=== PATIENT | female | born 1935 | race Caucasian/White ===

== ENCOUNTER 2016-10-31 13:19 | Emergency (ER) | payer OTHER, MEDICARE ==
[~2016-10-31] VITALS: Ht 162.6 cm; Wt 103.4 kg
[~2016-10-31 13:19] MED LIST: ACETAZOLAMIDE250 M1 PO; ALBUTEROL2.5 MG/3 M INH; AMARYL2 M1 PO; ATORVASTATIN CA20 MG PO; AZITHROMYCIN250 M1 PO; BETAPACE 80MG T80 MG PO; BETAPACE80 MG PO; BUMETANIDE1 M1 PO; CARDIZEM60 M1 PO; CARTIA XT120 MG PO; CATAPRES 0.1MG0.1 MG PO; CEPHALEXIN500 MG PO; CLONIDINE HYDR0.3 MG PO; DIGOX0.25 MG PO; DILTIAZEM ER120 M2 PO; DIOVAN80 M1 PO; ELIQUIS5 M1 PO; FERROUS SULFAT325 M3 PO; FUROSEMIDE20 MG PO; FUROSEMIDE40 MG PO; FUROSEMIDE80 M1 PO; FUROSEMIDE80 MG PO; GABAPENTIN100 M2 PO; HUMALOG KW100 UNIT/1 SC; K-DUR 20MEQ TA20 MEQ PO; LANTUS SOL100 UNIT/1 SC; LANTUS SOLOS100 U/ML; LANTUS SOLOS100 U/ML SC; LASIX40 M1 PO; LASIX40 MG PO; LASIX80 M1 PO; LASIX80 MG PO; LEVEMIR 10100 UNITS/ SC; LISINOPRIL40 MG PO; LOPRESSOR 25MG25 MG PO; LOPRESSOR50 MG PO; LOSARTAN POTASS25 M1 PO; LOSARTAN POTASS50 M1 PO; MEDROL DOSEPAK1 PAC PO; METOPROLOL TART25 M1 PO; MULTAQ 400MG400 MG PO; NAPROSYN375 MG PO; NITRO-DUR0.4 MG/HR TD; NOVOLOG FLEX100 U/ML SC; NOVOLOG SC; NYSTOP100000 U/G TP; PRADAXA150 MG PO; PRADAXA75 MG PO; PREDNISONE10 M2 PO; PROVENTIL HFA6.7 GM INH; SOTALOL80 M1 PO; SPIRONOLACTONE25 MG PO; THEOPHYLLINE A200 MG PO; THEOPHYLLINE A300 MG PO; TOUJEO SOL300 UNIT/1 SC; TOUJEO300 U/ML SC; VALSARTAN80 M1 PO
--- NOTE | 2016-10-31 13:25 | ED GENERAL ADULT ---
History of Present Illness General Chief Complaint: Dyspnea (COPD, CHF, Other) Stated Complaint: SOB TO MEET DR TRAMMELL Source: patient, family Exam Limitations: no limitations Vital Signs & Intake/Output Vital Signs & Intake/Output Vital Signs Date Time Temp Pulse Resp B/P Pulse O2 O2 Flow FiO2 Ox Delivery Rate 10/31 1905 98 18 94 Nasal 3.0L Cannula 10/31 1545 75 20 169/80 92 Nasal 3.0L Cannula 10/31 1323 98.2 94 20 129/58 92 Nasal 2.5L Cannula ED Intake and Output 11/01 0000 10/31 1200 Intake Total Output Total 500 Balance -500 Output, Urine 500 Patient 228 lb Weight Allergies Coded Allergies: Calcium Channel Blocking Agents-Dih (Intermediate, RASH 01/24/16) Penicillins (Mild, RASH 01/24/16) TOLERATES CEPHALOSPORINS latex (LATEX TAPE - RASH 01/24/16) Reconcile Medications Albuterol Sulfate 2.5 MG/3 ML VIAL.NEB 3 ML INH BID PRN breathing Albuterol Sulfate (Proventil Hfa) 6.7 GM HFA.AER.AD 2 PUF INH Q4P BREATHING USE THIS IF YOU CANNOT GET THE NEBULIZER MACHINE Apixaban (Eliquis) 5 MG TABLET 1 TAB PO BID BLOOD THINNER (Reported) Bumetanide 1 MG TABLET 2 MG PO DAILY CHF Diltiazem Cd (Diltiazem ER) 120 MG CAP.ER.DEG 120 MG PO DAILY AFIB Ferrous Sulfate 325 MG TABLET 1 TAB PO BID SUPPLEMENT (Reported) Glimepiride (Amaryl 2 MG) 2 MG TAB 1 TAB PO BID DIABETES (Reported) Insulin Glargine,Hum.rec.anlog (Brii Amado) 300 UNIT/1 ML INSULN.PEN 25 U SC DAILY DIABETES (Reported) Insulin Lispro (Humalog Kwikpen U-100) 100 UNIT/1 ML INSULN.PEN DIABETES ( Reported) BEFORE MEALS Blood Insulin Sugar Units 151-200 1 201-250 2 251-300 3 301-350 4 351-400 5 >400 6 Call Doctor Losartan Potassium 50 MG TABLET 1 TAB PO DAILY high blood pressure Metoprolol Tartrate 25 MG TABLET 25 MG PO BID AFIB Potassium Chloride 20 MEQ TAB.ER.PRT 1 TAB PO DAILY K+ (Reported) Theophylline Anhydrous 300 MG TAB.ER.12H 0.5 TAB PO DAILY CENTRAL SLEEP APNEA (Reported) Triage Nurses Notes Reviewed? yes Onset: Abrupt Duration: hour(s): Timing: recent history HPI: 10/31/16 81-year-old female presents to the emergency department with 3 days of difficulty breathing. The onset of the symptoms were abrupt, the duration has been approximately 72 hours, the severity is significant as her symptoms required her to come to the emergency department for care. (ZORAIDA CRAFT DO) Past History Travel History Traveled to [place] past 21 day No Medical History Any Pertinent Medical History? see below for history Neurological: peripheral neuropathy EENT: NONE Cardiovascular: AFIB, CAD, CHF, hypertension, hyperlipidemia, myocardial infarction, MVR (2006) SICK SINUS S/P PACEMAKER 2013 PIG VALVE DVT permanent pacemaker Respiratory: pneumonia Gastrointestinal: GI bleed s/p coil embolization of the hepatic flexure. mitral valve replacement with a #21 Mercado II with ligation of the left atrial appendage porcine valve with removal of left atrial appendage ligation of left atrial appendage Hepatic: NONE Renal: chronic kidney disease Musculoskeletal: KNEE REPLACEMENT 2013 Psychiatric: NONE Endocrine: IDDM Blood Disorders: anemia Cancer(s): breast cancer s/p left lumpectomy for ductal carcinoma in situ RESEARCH LIBRARIAN/Reproductive: NONE Other Medical Hx: appendectomy, cholecystectomy, hernia repair-inguinal (right), hernia repair-ventral, hysterectomy, L BREAST LUMPECTOMY (NO RESTRICTIONS) R KNEE REPLACEMENT left total knee replacement incarcerated hernia repair,AFIB, CAD, CHF, hypertension, hyperlipidemia, myocardial infarction, MVR (2006) SICK SINUS S/P PACEMAKER 2013 PIG VALVE DVT permanent pacemaker, GI bleed s/p coil embolization of the hepatic flexure. mitral valve replacement with a #21 Mercado II with ligation of the left atrial appendage porcine valve with removal of left atrial appendage ligation of left atrial appendage History of MRSA: No History of VRE: No History of CDIFF: No Pneumonia Vaccine: 07/06/14 Surgical History Surgical History: appendectomy, cholecystectomy, hernia repair-inguinal (right), hernia repair-ventral, hysterectomy, L BREAST LUMPECTOMY (NO RESTRICTIONS) R KNEE REPLACEMENT left total knee replacement incarcerated hernia repair Psychosocial History Who do you live with Patient/Self Services at Home Nursing, Oxygen What is your primary language Czech Tobacco Use: Quit >30 days ago ETOH Use: denies use Illicit Drug Use: denies illicit drug use Family History Family History, If Any: MOTHER Cardiomegaly FATHER FH: NM (myocardial infarction) FH: stroke BROTHER (valvular heart disease). Relation not specified for: FH: premature coronary heart disease Hx Contributory? No (ZORAIDA CRAFT DO) Review of Systems Review of Systems Constitutional: Denies: fever. EENTM: Reports: no symptoms. Respiratory: Reports: short of breath. Cardiovascular: Denies: chest pain. GI: Denies: abdominal pain. Genitourinary: Reports: no symptoms. Musculoskeletal: Reports: no symptoms. Skin: Reports: no symptoms. Neurological/Psychological: Reports: no symptoms. Hematologic/Endocrine: Reports: no symptoms. (ZORAIDA CRAFT DO) Physical Exam Physical Exam General Appearance: awake, anxious, moderate distress Head: atraumatic, normal appearance Eyes: Bilateral: normal appearance, PERRL, EOMI. Ears, Nose, Throat: normal pharynx, normal ENT inspection Neck: normal inspection, supple Respiratory: accessory muscle use, crackles, respiratory distress Cardiovascular: murmur, irregularly irregular Peripheral Pulses: 4+ radial (R), 4+ radial (L) Gastrointestinal: soft, non-tender Back: decreased range of motion Extremities: pedal edema, swelling, tenderness Neurologic/Psych: no motor/sensory deficits, awake, alert, oriented x 3 Skin: intact, normal color, warm/dry Core Measures ACS in differential dx? Yes CVA/TIA Diagnosis: No Severe Sepsis Present: No Septic Shock Present: No (ZORAIDA CRAFT DO) Progress Differential Diagnoses I considered the following diagnoses in my evaluation of the patient: [CHF, pulmonary embolism, PE] Plan of Care: Orders Procedure Date/time Status Heart Healthy Diet 10/31 D Active TROPONIN LEVEL 10/31 1740 Complete EKG 10/31 1740 Active TROPONIN LEVEL 10/31 1340 Complete PROTHROMBIN TIME 10/31 1340 Complete D-DIMER 10/31 1340 Complete COMPREHENSIVE METABOLIC PANEL 10/31 1340 Complete CBC WITHOUT DIFFERENTIAL 10/31 1340 Complete B-TYPE NATRIURETIC PEP (BNP) 10/31 1340 Complete EKG 10/31 1321 Active Laboratory Tests 10/31/16 1735: Troponin I 0.04 10/31/16 1340: Anion Gap 10, Estimated GFR 48 L, BUN/Creatinine Ratio 33.6 H, Glucose 100 H, Calcium 9.2, Total Bilirubin 0.7, AST 18, ALT 25, Alkaline Phosphatase 67, Troponin I 0.05, Fco-C-Qelqznlrbjj Pept 4390 H, Total Protein 7.3, Albumin 3.7, Globulin 3.6, Albumin/Globulin Ratio 1.0 L, PT 17.9 H, INR 1.71 H, D-Dimer 368 H, CBC w Diff NO MAN DIFF REQ, RBC 4.22, MCV 89.7, MCH 28.6, RDW 19.2 H, MPV 8.2, Gran % 67.8, Lymphocytes % 17.2 L, Monocytes % 10.3 H, Eosinophils % 2.6, Basophils % 2.1 H, Absolute Granulocytes 5.3, Absolute Lymphocytes 1.3, Absolute Monocytes 0.8 H, Absolute Eosinophils 0.2, Absolute Basophils 0.2, PUBS MCHC 31.9 L Patient feeling much better after diuresis. CT chest angiogram negative for PE. Repeat troponin 0.04. Patient wants to go home at this time and daughter also feels she is back to baseline and will take her home. (MARLYN HENRY,SHARITA) Initial ED EKG: A. fib, PVC Prior EKG: unchanged (VENANCIO CHAPMAN,ZORAIDA Dos Santos) Differential Diagnoses I considered the following diagnoses in my evaluation of the patient: Diagnostic Imaging: Viewed by Me: CT Scan. Discussed w/RAD: CT Scan. Radiology Impression: PATIENT: AMINTA MAK PRESENT AGE: 81 PATIENT ACCOUNT NO: [id number] : 34 LOCATION: [facility] ORDERING PHYSICIAN: ZORAIDA CRAFT DO SERVICE DATE: 10/31/16 EXAM TYPE: CAT - CTA CHEST-PULMONARY EMBOLISM EXAMINATION: CT ANGIOGRAM OF THE CHEST WITH AND WITHOUT CONTRAST (CT PULMONARY ANGIOGRAM FOR PE) CLINICAL INFORMATION: Shortness of breath. Elevated d-dimer. COMPARISON: Chest x-ray 10/31/2016. TECHNIQUE: Prior to contrast administration, noncontrast localization images were obtained. Subsequently, multidetector volumetric imaging was performed from the thoracic inlet to below the diaphragms following the administration of 125 mL Optiray 350 intravenous contrast. No contrast reaction reported. Sagittal , coronal, and MIP oblique sagittal reformatted images were obtained on the CT workstation, uploaded to PACS, and reviewed. Total exam dose-length product 583 mGy-cm FINDINGS: QUALITY OF STUDY/CONTRAST BOLUS: Adequate contrast opacification of the pulmonary arterial vasculature. PULMONARY ARTERIES: No evidence of pulmonary embolism to the level of the segmental pulmonary arteries. Evaluation of the subsegmental pulmonary arteries, notably within the bilateral lung bases is somewhat limited given pulmonary hypoinflation. Prominent bilateral pulmonary arteries with the right pulmonary artery visualized measuring up to 3.7 cm in diameter. The left pulmonary artery measures approximately 3.6 cm in diameter. Prominence of the pulmonary arterial vasculature can be seen in the setting of pulmonary arterial hypertension. THORACIC AORTA: Normal caliber of the thoracic aorta. Limited evaluation for aortic dissection given phase of contrast imaging. LUNG: Evaluation of the lung parenchyma demonstrates diffuse groundglass opacities within the bilateral lungs with associated mosaic attenuation of both lungs. Request opacities are entirely nonspecific but could reflect atelectasis given low lung volumes. There is subpleural reticular thickening within the right lung, notably along the periphery of the right upper lobe, the right middle as well as the right lower lobe. Subpleural reticular thickening is nonspecific but can be seen in the setting of underlying fibrosis. Patchy airspace opacities are identified within all lobes of the right lung. The central airways are patent, without endobronchial obstructing lesions. PLEURA: No pleural effusions or pneumothoraces. MEDIASTINUM: Median sternotomy wires and evidence of prior CABG. Postsurgical changes related to prior mitral valve replacement. Scattered coronary artery calcifications. Right chest wall cardiac pacemaker with leads identified in the region of the right atrium and right ventricle. Myocardial megaly, without significant pericardial effusion. The left atrium is prominent. Small hiatal hernia. Of note, there are prominent mediastinal lymph nodes. For instance, there are prominent lymph nodes within the right paratracheal region visualized measuring approximately 2.4 x 2.7 cm. Prominent precarinal adenopathy is visualized measuring up to 2.2 x 2.6 cm. Prominent lymph nodes are also identified within the prevascular space as well as the aortopulmonary window. A prominent subcarinal lymph node measures 2.5 x 2.9 cm. There is no significant hilar or axillary adenopathy. CHEST WALL/AXILLA: No axillary or internal mammary lymphadenopathy. OSSEOUS STRUCTURES: No acute osseous abnormality. No acute thoracic vertebral compression deformities. UPPER ABDOMEN: Reflux of contrast into the hepatic veins and IVC. This is suggestive of elevated right heart pressures. IMPRESSION: 1. Adequate contrast opacification of the pulmonary arterial vasculature, without evidence of pulmonary embolism. 2. Prominence of the pulmonary arteries, with the right pulmonary artery visualized measuring up to 3.7 cm in diameter. The left pulmonary artery measures 3.6 cm in diameter. Prominence of the pulmonary arterial vasculature can be seen in the setting of pulmonary arterial hypertension. 3. Prominent mediastinal adenopathy, as detailed above. These lymph nodes are indeterminate and of uncertain etiology. A dedicated PET CT may be obtained for further evaluation. 4. Pulmonary hypoinflation. Groundglass opacities and mosaic attenuation of the bilateral lungs. This finding is nonspecific but may be secondary to atelectasis and air trapping given low lung volumes. Or subpleural reticular thickening within the lungs, notably along the periphery of the right upper, right middle and right lower lobes. This could reflect fibrotic changes. VTE: Negative. DICTATED BY: ALAINA BONILLA MD DATE/TIME DICTATED:10/31/161708 ACQUISITION MARKETING MANAGER:ENRIQUE DATE/TIME TRANSCRIBED:10/31/161708 CONFIDENTIAL, DO NOT COPY WITHOUT APPROPRIATE AUTHORIZATION. <Electronically signed in Other Vendor System> SIGNED BY: ALAINA BONILLA MD 10/31/16 1734 (SHARITA ANDERSON MD) Departure Departure Condition: Stable Clinical Impression Primary Impression: Dyspnea Secondary Impressions: Congestive heart failure Referrals: EM PONCE MD (PCP/Family) Departure Forms: Customer Survey General Discharge Information Comments 10/31/16 3 PM Chest x-ray shows CHF EKG shows A. fib PVC unchanged First troponin is negative. The patient was seen and evaluated by his Dr. Trammell in the ED. The plan is for serial troponins. CTA to exclude pulmonary embolism, as the d-dimer was elevated. Evaluate response to Lasix The patient was signed out to Dr. Anderson at 3 PM. (ZORAIDA CRAFT DO) Departure Disposition: HOME OR SELF CARE Additional Instructions: Continue the diuretic regimen as instructed by Dr. Trammell today. Follow up with your doctor in the office. Return as needed. (SHARITA ANDERSON MD) Critical Care Note Critical Care Note Critical Care Time: 30-74 min (ZORAIDA CRAFT DO)
[2016-10-31] MEDS ORDERED: POTASSIUM CHLO20 ME2 PO (13:51)
[2016-10-31 13:57] LABS: ABSOLUTE BASOPHIL COUNT 0.2 /CUMM (0.0-0.2); ABSOLUTE EOSINOPHIL COUNT 0.2 /CUMM (0.0-0.7); ABSOLUTE GRANULOCYTE CT 5.3 /CUMM (1.4-6.5); ABSOLUTE LYMPH COUNT 1.3 /CUMM (1.2-3.4); ABSOLUTE MONOCYTE COUNT 0.8 /CUMM (0.10-0.60); BASOPHIL % 2.1 % (0.0-2.0); EOSINOPHIL % 2.6 % (0-5); GRANULOCYTE % 67.8 % (42.2-75.2); HEMATOCRIT 37.9 % (37-47); MEAN CORPUSCULAR HGB 28.6 PG (27.0-31.0); MEAN CORPUSCULAR HGB CONC 31.9 G/DL (33.0-37.0); MEAN CORPUSCULAR VOLUME 89.7 FL (81.0-99.0); MEAN PLATELET VOLUME 8.2 FL (7.4-10.4); PLATELET COUNT 283 /CUMM (130-400); RBC DISTRIBUTION WIDTH 19.2 % (11.5-14.5); RED BLOOD CELL CT 4.22 /CUMM (4.20-5.40); WHITE BLOOD CELL COUNT 7.8 /CUMM (4.8-10.8)
[2016-10-31 14:14] LABS: PT 17.9 SEC (9.4-12.5)
--- NOTE | 2016-10-31 14:23 | RADIOLOGY REPORT ---
EXAMINATION: XR PORTABLE CHEST CLINICAL INFORMATION: Shortness of breath. COMPARISON: 09/21/2016 TECHNIQUE: Portable view of the chest was obtained. FINDINGS: There is a right chest wall dual-lead pacer which is unchanged. Median sternotomy wires appear intact. The lungs are well expanded. Prominent interstitial markings are noted with peribronchial cuffing. Probable small left pleural effusion with retrocardiac opacity. No pneumothorax. The cardiomediastinal silhouette remains prominent. IMPRESSION: Probable small left pleural effusion with airspace opacity. Interstitial prominence with peribronchial cuffing suspicious for developing edema.
[2016-10-31 15:45] VITALS: BP 169/80
--- NOTE | 2016-10-31 17:31 | CT SCAN REPORT ---
EXAMINATION: CT ANGIOGRAM OF THE CHEST WITH AND WITHOUT CONTRAST (CT PULMONARY ANGIOGRAM FOR PE) CLINICAL INFORMATION: Shortness of breath. Elevated d-dimer. COMPARISON: Chest x-ray 10/31/2016. TECHNIQUE: Prior to contrast administration, noncontrast localization images were obtained. Subsequently, multidetector volumetric imaging was performed from the thoracic inlet to below the diaphragms following the administration of 125 mL Optiray 350 intravenous contrast. No contrast reaction reported. Sagittal, coronal, and MIP oblique sagittal reformatted images were obtained on the CT workstation, uploaded to PACS, and reviewed. Total exam dose-length product 583 mGy-cm FINDINGS: QUALITY OF STUDY/CONTRAST BOLUS: Adequate contrast opacification of the pulmonary arterial vasculature. PULMONARY ARTERIES: No evidence of pulmonary embolism to the level of the segmental pulmonary arteries. Evaluation of the subsegmental pulmonary arteries, notably within the bilateral lung bases is somewhat limited given pulmonary hypoinflation. Prominent bilateral pulmonary arteries with the right pulmonary artery visualized measuring up to 3.7 cm in diameter. The left pulmonary artery measures approximately 3.6 cm in diameter. Prominence of the pulmonary arterial vasculature can be seen in the setting of pulmonary arterial hypertension. THORACIC AORTA: Normal caliber of the thoracic aorta. Limited evaluation for aortic dissection given phase of contrast imaging. LUNG: Evaluation of the lung parenchyma demonstrates diffuse groundglass opacities within the bilateral lungs with associated mosaic attenuation of both lungs. Request opacities are entirely nonspecific but could reflect atelectasis given low lung volumes. There is subpleural reticular thickening within the right lung, notably along the periphery of the right upper lobe, the right middle as well as the right lower lobe. Subpleural reticular thickening is nonspecific but can be seen in the setting of underlying fibrosis. Patchy airspace opacities are identified within all lobes of the right lung. The central airways are patent, without endobronchial obstructing lesions. PLEURA: No pleural effusions or pneumothoraces. MEDIASTINUM: Median sternotomy wires and evidence of prior CABG. Postsurgical changes related to prior mitral valve replacement. Scattered coronary artery calcifications. Right chest wall cardiac pacemaker with leads identified in the region of the right atrium and right ventricle. Myocardial megaly, without significant pericardial effusion. The left atrium is prominent. Small hiatal hernia. Of note, there are prominent mediastinal lymph nodes. For instance, there are prominent lymph nodes within the right paratracheal region visualized measuring approximately 2.4 x 2.7 cm. Prominent precarinal adenopathy is visualized measuring up to 2.2 x 2.6 cm. Prominent lymph nodes are also identified within the prevascular space as well as the aortopulmonary window. A prominent subcarinal lymph node measures 2.5 x 2.9 cm. There is no significant hilar or axillary adenopathy. CHEST WALL/AXILLA: No axillary or internal mammary lymphadenopathy. OSSEOUS STRUCTURES: No acute osseous abnormality. No acute thoracic vertebral compression deformities. UPPER ABDOMEN: Reflux of contrast into the hepatic veins and IVC. This is suggestive of elevated right heart pressures. IMPRESSION: 1. Adequate contrast opacification of the pulmonary arterial vasculature, without evidence of pulmonary embolism. 2. Prominence of the pulmonary arteries, with the right pulmonary artery visualized measuring up to 3.7 cm in diameter. The left pulmonary artery measures 3.6 cm in diameter. Prominence of the pulmonary arterial vasculature can be seen in the setting of pulmonary arterial hypertension. 3. Prominent mediastinal adenopathy, as detailed above. These lymph nodes are indeterminate and of uncertain etiology. A dedicated PET CT may be obtained for further evaluation. 4. Pulmonary hypoinflation. Groundglass opacities and mosaic attenuation of the bilateral lungs. This finding is nonspecific but may be secondary to atelectasis and air trapping given low lung volumes. Or subpleural reticular thickening within the lungs, notably along the periphery of the right upper, right middle and right lower lobes. This could reflect fibrotic changes. VTE: Negative.
--- NOTE | 2016-10-31 18:01 | Cons- Cardiology ---
General Information and HPI Consulting Request Date of Consult: 10/31/16 Requested By: Dr. Mcelroy History of Present Illness: Ira is an 81 year-old female with history of diabetes mellitus, hypertension , congestive heart failure, anemia, paroxysmal atrial fibrillation, and mitral valve replacement. She is status post placement of a #21 Mercado II porcine heart valve. At the time of her surgery, she underwent a maze procedure with ligation of the left atrial appendage. This surgery was performed in 2010. Finally, this patient has undergone a permanent pacemaker implantation for symptomatic bradycardia. Ira presented to the ER due to concerns regarding increasing leg swelling bilaterally that is also manifesting as a weight gain. She denies any shortness of breath beyond baseline and is comfortable at rest. She does not have orthopnea. There is no chest discomfort, wheezing, lightheadedness or palpitations. In the past Ira noted intermittent rapid palpitations associated with mild lightheadedness but these symptoms are not apparent at this time. Ira is known from a prior recent echo to have at least mild to moderate stenosis of her bioprosthetic mitral valve and mild aortic stenosis. She is now on Bumex for control of her edema. Ira has tried Sotolol for rhythm control which appeared to be effective although the patient, nevertheless, desired to stop this medication. Multaq was used in the past but was discontinued due to bradycardia pre-pacemaker implantation. We also tried digoxin but this drug was stopped when the patient became dig toxic. It should be recalled that on a prior hospital visit she did have a mild rise in cardiac enzymes but this was in the setting of prolonged tachycardia. She does have mild renal insufficiency and a moderately stenotic mitral valve. Her creatinine today is 1.1. Ira's last stress test showed a large region of mildly decreased radiotracer uptake in the anterior wall of the left ventricle without improvement on resting images. This was consistent with a fixed defect, possibly breast tissue attenuation artifact. No ischemia was identified. Her overall EF was normal at 71%. Previously, on another admission, this patient had a CT angiogram to rule out a PE which found a filling defect in the left atrium. This defect was found to be atrial thrombus. There were also some nonspecific pulmonary nodules measuring less than 4 mm. Pulmonary enlargement consistent with pulmonary hypertension was also noted. Finally, there were some nonspecific enlarged mediastinal and bilateral hilar nodes. In consideration of the left atrial thrombus, I did start the patient on Pradaxa 150 mg b.i.d. A subsequent followup echo did show resolution of the left atrial thrombus. The patient's last lipid profile shows an LDL of 79 with an HDL of 60 and triglycerides of 174. To review the patient's last cardiac catheterization, this disclosed a large patent left main. The LAD had luminal irregularities. The left circumflex harbored an 80% stenosis in the AV groove at the takeoff of an obtuse marginal 3 branch. The mid AV groove left circumflex had a 70%. The obtuse marginal 3 itself was patent and tortuous. The RCA was a large, dominant , tortuous vessel with luminal irregularities. Her overall EF was 60% with severe mitral regurgitation. In consideration of these findings, I performed a planned balloon angioplasty in the AV groove left circumflex as well as at the takeoff of the obtuse marginal 3 branch. This resulted in 0% residual stenosis in the mid vessel with a 40% residual stenosis in the AV groove left circumflex at the point where the obtuse marginal 3 takes off. To review some of the patient's past history, I first saw Ira in August 2007 when she presented to [facility] with shortness of breath, orthopnea, and lower extremity swelling suggestive of heart failure. She was anemic at that time with a hemoglobin and hematocrit of 8.0 and 24. The patient underwent coil embolization of her hepatic flexure. At that time, she was followed by Dr. Dowling for anemia as well as breast cancer and by Dr. Palacios for diabetes. A CT angiogram to evaluate for renal artery stenosis disclosed bilateral hypodense adrenal nodules but no evidence of renal artery stenosis. Patient has also been on Tekturna at 1 time but this medication was also discontinued to avoid any significant side effects. Finally , Felodipine was tried at 10 mg a day, and this resulted in tongue swelling suggestive of an allergic reaction. I believe she has had similar reactions to other calcium channel blockers. Allergies/Medications Allergies: Coded Allergies: Calcium Channel Blocking Agents-Dih (Intermediate, RASH 01/24/16) Penicillins (Mild, RASH 01/24/16) TOLERATES CEPHALOSPORINS latex (LATEX TAPE - RASH 01/24/16) Home Med List: Albuterol Sulfate 2.5 MG/3 ML VIAL.NEB 3 ML INH BID PRN breathing Albuterol Sulfate (Proventil Hfa) 6.7 GM HFA.AER.AD 2 PUF INH Q4P BREATHING USE THIS IF YOU CANNOT GET THE NEBULIZER MACHINE Apixaban (Eliquis) 5 MG TABLET 1 TAB PO BID BLOOD THINNER (Reported) Bumetanide 1 MG TABLET 2 MG PO DAILY CHF Diltiazem Cd (Diltiazem ER) 120 MG CAP.ER.DEG 120 MG PO DAILY AFIB Ferrous Sulfate 325 MG TABLET 1 TAB PO BID SUPPLEMENT (Reported) Glimepiride (Amaryl 2 MG) 2 MG TAB 1 TAB PO BID DIABETES (Reported) Insulin Glargine,Hum.rec.anlog (Toujeo Solostar) 300 UNIT/1 ML INSULN.PEN 25 U SC DAILY DIABETES (Reported) Insulin Lispro (Humalog Kwikpen U-100) 100 UNIT/1 ML INSULN.PEN DIABETES ( Reported) BEFORE MEALS Blood Insulin Sugar Units 151-200 1 201-250 2 251-300 3 301-350 4 351-400 5 >400 6 Call Doctor Losartan Potassium 50 MG TABLET 1 TAB PO DAILY high blood pressure Metoprolol Tartrate 25 MG TABLET 25 MG PO BID AFIB Potassium Chloride 20 MEQ TAB.ER.PRT 1 TAB PO DAILY K+ (Reported) Theophylline Anhydrous 300 MG TAB.ER.12H 0.5 TAB PO DAILY CENTRAL SLEEP APNEA (Reported) Review of Systems Review of Systems: A twelve point review of systems is unremarkable other than the above. Past History Travel History Traveled to [place] past 21 day No Medical History Neurological: peripheral neuropathy EENT: NONE Cardiovascular: AFIB, CAD, CHF, hypertension, hyperlipidemia, myocardial infarction, MVR (2006) SICK SINUS S/P PACEMAKER 2013 PIG VALVE DVT permanent pacemaker Respiratory: pneumonia Gastrointestinal: GI bleed s/p coil embolization of the hepatic flexure. 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 mitral valve replacement with a #21 Mercado II with ligation of the left atrial appendage porcine valve with removal of left atrial appendage ligation of left atrial appendage Surgical History Surgical History: appendectomy, cholecystectomy, hernia repair-inguinal (right), hernia repair-ventral, hysterectomy, L BREAST LUMPECTOMY (NO RESTRICTIONS) R KNEE REPLACEMENT left total knee replacement incarcerated hernia repair Family History Relations & Conditions If Any: MOTHER Cardiomegaly FATHER FH: [place] (myocardial infarction) FH: stroke BROTHER (valvular heart disease). Relation not specified for: FH: premature coronary heart disease Psychosocial History Who Do You Live With? self Services at Home: Nursing, Oxygen Primary Language: Slovak ETOH Use: denies use Illicit Drug Use: denies illicit drug use Living Will? yes Functional Ability ADLs Independent: dressing, eating, toileting, bathing. Ambulation: cane, walker IADLs Independent: finances, telephone, medication admin. Needs Assist: shopping, housework, food prep, transportation. Exam & Diagnostic Data Vital Signs and I&O Vital Signs Date Time Temp Pulse Resp B/P Pulse O2 O2 Flow FiO2 Ox Delivery Rate 10/31 1545 75 20 169/80 92 Nasal 3.0L Cannula 10/31 1323 98.2 94 20 129/58 92 Nasal 2.5L Cannula Intake & Output 10/31 1600 10/31 0800 10/31 0000 10/30 1600 10/30 0800 10/30 0000 Intake Total Output Total Balance Patient 228 lb Weight Physical Exam: General: WD/ obese female in NAD; alert and oriented x 3 HEENT: NC/AT, PERRL, EOMI Neck: no JVD, no carotid bruit Heart: RRR with 3/6 systolic murmur Lungs: no crackles or wheezing Abdomen: soft, Obese, NT, +ve bowel sounds EXtremtieis: 2+ leg edema bilaterally superimposed on chronic lymphedema Assessment/Plan Assessment/Plan * Ira has a mild weight gain along with lower extremity swelling. This may be due to not taking her Bumex as recommended at 2mg BID. A couple days ago this issue was corrected but I do not think she had time time get back to baseline. I do not see any evidence of left heart failure and the patient denies shortness of breath. We will give Bumex 4mg IV now and will evaluate her for a PE since she does have an elevated D-dimer. If this study is WNL then we can discharge her on Bumex 4mg each evening and 2mg each morning. I will follow up with her in the office. If she does not improve she has been instructed to return to the . No change in other medications. Consult Acknowledgment - Thank you for your consult request.
== END 2016-10-31 19:15 ==
LOC: ERH 13:19
PROVIDERS: Emergency Medicine
DX: I50.9 Heart failure, unspecified (principal); Z87.891 Personal history of nicotine dependence; E11.9 Type 2 diabetes mellitus without complications; Z79.4 Long term (current) use of insulin
CPT/HCPCS: 93005; 93010; 96374

== ENCOUNTER 2016-11-28 09:33 | Inpatient (IN) | payer OTHER, MEDICARE ==
[~2016-11-28] VITALS: Ht 162.6 cm; Wt 103.0 kg
[~2016-11-28 09:33] MED LIST changes: +POTASSIUM CHLO20 ME2 PO
--- NOTE | 2016-11-28 09:47 | ED DYSPNEA/ASTHMA COMPLAINT ---
See Addendum History of Present Illness General Chief Complaint: Dyspnea (COPD, CHF, Other) Stated Complaint: sob Source: patient, family, old records Exam Limitations: no limitations Vital Signs & Intake/Output Vital Signs & Intake/Output Vital Signs Date Time Temp Pulse Resp B/P Pulse O2 O2 Flow FiO2 Ox Delivery Rate 12/02 0952 110 136/74 12/02 0857 95 Nasal 4.0L Cannula 12/02 0835 97.6 110 40 136/74 90 Nasal 4.0L Cannula 12/02 0800 Nasal 4.0L Cannula ED Intake and Output 12/03 0000 12/02 1200 Intake Total 480 650 Output Total 400 900 Balance 80 -250 Intake, Oral 480 650 Output, Urine 400 900 Allergies Coded Allergies: Penicillins (Mild, RASH 01/24/16) TOLERATES CEPHALOSPORINS Triage Nurses Notes Reviewed? yes HPI: Patient is an 81-year-old female presents complaining of dyspnea and lower extremity edema. Symptoms onset 3-4 days ago. Symptoms progressively worsening. Dyspnea is moderate at rest, severe with any exertion. Patient unable to ambulate secondary to her lower extremity edema and dyspnea. Bilateral lower extremity pain is moderate at rest. Patient denies chest pain, fevers, chills. (NI MASTERS,SIDNEY) Reconcile Medications Albuterol Sulfate 2.5 MG/3 ML VIAL.NEB 3 ML INH BID PRN breathing Albuterol Sulfate (Proventil Hfa) 6.7 GM HFA.AER.AD 2 PUF INH Q4P BREATHING USE THIS IF YOU CANNOT GET THE NEBULIZER MACHINE Apixaban (Eliquis) 5 MG TABLET 1 TAB PO BID BLOOD THINNER (Reported) Bumetanide 1 MG TABLET 4 MG PO BID heart failure Diltiazem Cd (Diltiazem ER) 120 MG CAP.ER.DEG 120 MG PO DAILY AFIB Ferrous Sulfate 325 MG TABLET 1 TAB PO BID SUPPLEMENT (Reported) Glimepiride (Amaryl) 2 MG TABLET 1 TAB PO BID DM (Reported) Insulin Glargine,Hum.rec.anlog (Brii Amado) 300 UNIT/1 ML INSULN.PEN 25 U SC DAILY DIABETES (Reported) Insulin Lispro (Humalog Kwikpen U-100) 100 UNIT/1 ML INSULN.PEN DIABETES ( Reported) BEFORE MEALS Blood Insulin Sugar Units 151-200 1 201-250 2 251-300 3 301-350 4 351-400 5 >400 6 Call Doctor Losartan Potassium 50 MG TABLET 1 TAB PO DAILY high blood pressure Metoprolol Tartrate 25 MG TABLET 25 MG PO BID AFIB Potassium Chloride 20 MEQ TAB.ER.PRT 1 TAB PO DAILY K+ (Reported) Theophylline Anhydrous 300 MG TAB.ER.12H 0.5 TAB PO DAILY CENTRAL SLEEP APNEA (Reported) (VINCENT HENRY,KIRAN Villegas) Past History Travel History Traveled to [place] past 21 day No Medical History Any Pertinent Medical History? see below for history Neurological: peripheral neuropathy EENT: NONE Cardiovascular: AFIB, CAD, CHF, hypertension, hyperlipidemia, myocardial infarction, MVR (2006) SICK SINUS S/P PACEMAKER 2013 PIG VALVE DVT permanent pacemaker Respiratory: pneumonia Gastrointestinal: GI bleed s/p coil embolization of the hepatic flexure. 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 mitral valve replacement with a #21 Mercado II with ligation of the left atrial appendage porcine valve with removal of left atrial appendage ligation of left atrial appendage History of MRSA: No History of VRE: No History of CDIFF: No Surgical History Surgical History: appendectomy, cholecystectomy, hernia repair-inguinal (right), hernia repair-ventral, hysterectomy, L BREAST LUMPECTOMY (NO RESTRICTIONS) R KNEE REPLACEMENT left total knee replacement incarcerated hernia repair Psychosocial History Who do you live with Patient/Self Services at Home Nursing, Oxygen What is your primary language Kazakh Tobacco Use: Never used Family History Family History, If Any: MOTHER Cardiomegaly FATHER FH: [place] (myocardial infarction) FH: stroke BROTHER (valvular heart disease). Relation not specified for: FH: premature coronary heart disease Hx Contributory? No (SIDNEY SALGADO) Review of Systems Review of Systems Constitutional: Reports: malaise, weakness. Denies: chills, fever. EENTM: Reports: no symptoms. Respiratory: Reports: short of breath. Denies: cough. Cardiovascular: Reports: peripheral edema. Denies: chest pain. GI: Denies: abdominal pain, nausea, vomiting. Musculoskeletal: Reports: muscle pain (bilateral lower extremities). Skin: Reports: no symptoms. Neurological/Psychological: Reports: no symptoms. Hematologic/Endocrine: Reports: no symptoms. Immunologic/Allergic: Reports: no symptoms. (SIDNEY SALGADO) Physical Exam Physical Exam General Appearance: well developed/nourished, alert, awake Head: atraumatic, normal appearance Eyes: Bilateral: normal appearance, PERRL, EOMI. Ears, Nose, Throat: normal pharynx, normal ENT inspection, hearing grossly normal Neck: normal inspection, supple, full range of motion Respiratory: Moderate respiratory distress, worsens with minimal exertion. mild diffuse rales Cardiovascular: regular rate/rhythm, systolic murmur Peripheral Pulses: 2+ dorsalis pedis (R), 2+ dorsalis pedis (L) Gastrointestinal: soft, non-tender Extremities: pedal edema (4+ bilateral) Neurologic/Psych: awake, alert, oriented x 3 Skin: warm/dry Lymphatic: no anterior cervical nany Core Measures ACS in differential dx? Yes ASA ordered for poss ACS? No-ACS ruled out Severe Sepsis Present: No Septic Shock Present: No (SIDNEY SALGADO) Progress Differential Diagnosis: asthma, AMI, CHF, COPD, pericarditis, pulmonary embolism , pneumonia, unstable angina Plan of Care: Orders Procedure Date/time Status RT: Reevaluation 12/02 1037 Active RT RE-EVALUATION 12/02 UNK Complete PT Evaluate & Treat 12/02 UNK Active PT EVAL LOW COMPLEX 20 MIN 12/02 UNK Complete Gait Training 12/02 UNK Complete Discharge Patient 12/02 UNK Active AEROSOL CHG 12/01 UNK Complete OXYGEN 12/01 UNK Complete OXYGEN DAILY CHARGE 12/01 UNK Complete AEROSOL CHG 11/30 UNK Complete OXYGEN 11/30 UNK Complete OXYGEN DAILY CHARGE 11/30 UNK Complete AEROSOL CHG 11/29 UNK Complete OXYGEN 11/29 UNK Complete OXYGEN DAILY CHARGE 11/29 UNK Complete 11/28/2016 11:05:07 AM: Results of chest x-ray discussed with the patient and her family. Patient's heart rate in the 90's to low 100s. Patient continues with moderate dyspnea at rest, severe even with just moving in the stretcher. Awaiting results of chemistries. Discussed with Dr. Galvez. Kiran Galvez MD discussed patient with Dr. Freeman for admission. 11/28/2016 11:58:27 AM: Discussed with Dr. Galloway: will evaluate patient. (NI MASTERS,SIDNEY) Diagnostic Imaging: Viewed by Me: Radiology Read. Discussed w/RAD: Radiology Read. Radiology Impression: PATIENT: AMINTA MAK PRESENT AGE: 81 PATIENT ACCOUNT NO: [id number] : 34 LOCATION: [facility] ORDERING PHYSICIAN: SIDNEY MASTERS SERVICE DATE: 11/28/16 EXAM TYPE: RAD - XRY-PORTABLE CHEST XRAY EXAMINATION: XR PORTABLE CHEST CLINICAL INFORMATION: Shortness of breath and lower extremity edema. Congestive heart failure. COMPARISON: CXR from 09/21/2016. CXR and chest CT from 10/31/2016. TECHNIQUE: Portable AP view of the chest was obtained. FINDINGS: There is a right prepectoral cardiac pacemaker with transvenous leads extending to the right atrium and right ventricle. Mitral valve annuloplasty ring is noted. The sternotomy wires are intact. Thoracic aorta is calcified. There is cardiomegaly and chronic enlargement of the pulmonary arteries, suggestive of pulmonary arterial hypertension. The borders of the enlarged pulmonary vessels are slightly indistinct. Hazy, interstitial opacities are present in both lungs ( apparently increased compared to 10/31/2016), probably due to mild interstitial edema. No overt pleural effusion. No acute osseous findings. IMPRESSION: Cardiomegaly, pulmonary vascular congestion and probable mild interstitial edema. Also, pulmonary arteries are chronically enlarged, as may be seen in pulmonary arterial hypertension. DICTATED BY: DORIAN CREWS MD DATE/TIME DICTATED:11/28/161024 ELECTRICIAN THIRD:ENRIQUE DATE/TIME TRANSCRIBED:1024 CONFIDENTIAL, DO NOT COPY WITHOUT APPROPRIATE AUTHORIZATION. < Electronically signed in Other Vendor System> SIGNED BY: DORIAN CREWS MD 11/28/16 1035 Initial ED EKG: SINUS TACHYCARDIA APPROXIMATELY 125 BPM NORMAL AXIS, PROLONGED QT INTERVAL, DIFFUSE st DEPRESSION Prior EKG: changed Rhythm Strip: sinus tachycardia (SIDNEY SALGADO) Comments: 11/28/2016 11:52:09 AM I have discussed this patient's case with Dr. Freeman, who will notify Dr. Galloway. (VINCENT HENRY,KIRAN Villegas) Departure Departure Time of Disposition: 1158 Disposition: STILL A PATIENT Condition: Stable Clinical Impression Primary Impression: CHF exacerbation Qualifiers: Congestive heart failure type: unspecified congestive heart failure type Qualified Code: I50.9 - Heart failure, unspecified Secondary Impressions: Hyperglycemia Referrals: EM FREEMAN MD (PCP/Family) Departure Forms: Customer Survey General Discharge Information (SIDNEY SALGADO) Departure Prescriptions: Current Visit Scripts Bumetanide 4 MG PO BID #30 Admission Note Spoke With: EM FREEMAN MD Documentation of Exam: Documentation of any treatments & extenuating circumstances including Concerns Regarding Discharge (functional status, medication knowledge or non-compliance, living conditions, etc.) that warrant an admission rather than observation: Patient presents with dyspnea and has evidence of congestive heart failure/ pulmonary edema on chest x-ray. This patient is at high risk of respiratory arrest and . I do not feel she is a good candidate for outpatient management. She has a history of atrial fibrillation and does become tachycardic at times. I feel she requires close clinical monitoring and continuous telemetry monitoring of heart rate for possible tachycardia. She should also have intake and output and daily weights monitor to assure that she is in a negative fluid balance. He consultation should be obtained as well. She should be treated with IV Lasix and oxygen supplementation as necessary. Serial troponins should be obtained as well and treated accordingly. Given this patient's advanced age and medical comorbidities again I do not feel she is a good candidate for outpatient management. I feel the exertion of compliance with outpatient treatment could worsen her dyspnea inducing hypoxia and chest pain. I feel she will require a multiple day hospitalization. PA/POSTPARTUM RN Co-Sign Statement Statement: ED Attending supervision documentation- [X] I saw and evaluated the patient. I have also reviewed all the pertinent lab results and diagnostic results. I agree with the findings and the plan of care as documented in the PA's/POSTPARTUM RN's documentation. [] I have reviewed the ED Record and agree with the PA's/POSTPARTUM RN's documentation. [] Additions or exceptions (if any) to the PAs/POSTPARTUM RN's note and plan are summarized below: [] (VINCENT HENRY,KIRAN Villegas) Critical Care Note Critical Care Note Critical Care Time: non-applicable (NI MASTERS,SIDNEY)
[2016-11-28] MEDS ORDERED: BUMETANIDE2 M1 PO (10:30)
[2016-11-28] MEDS ORDERED: LANTUS SOL100 UNIT/1 SC (10:32)
--- NOTE | 2016-11-28 10:35 | RADIOLOGY REPORT ---
EXAMINATION: XR PORTABLE CHEST CLINICAL INFORMATION: Shortness of breath and lower extremity edema. Congestive heart failure. COMPARISON: CXR from 09/21/2016. CXR and chest CT from 10/31/2016. TECHNIQUE: Portable AP view of the chest was obtained. FINDINGS: There is a right prepectoral cardiac pacemaker with transvenous leads extending to the right atrium and right ventricle. Mitral valve annuloplasty ring is noted. The sternotomy wires are intact. Thoracic aorta is calcified. There is cardiomegaly and chronic enlargement of the pulmonary arteries, suggestive of pulmonary arterial hypertension. The borders of the enlarged pulmonary vessels are slightly indistinct. Hazy, interstitial opacities are present in both lungs (apparently increased compared to 10/31/2016), probably due to mild interstitial edema. No overt pleural effusion. No acute osseous findings. IMPRESSION: Cardiomegaly, pulmonary vascular congestion and probable mild interstitial edema. Also, pulmonary arteries are chronically enlarged, as may be seen in pulmonary arterial hypertension.
[2016-11-28 10:37] LABS: ABSOLUTE BASOPHIL COUNT 0 /CUMM (0.0-0.2); ABSOLUTE EOSINOPHIL COUNT 0.1 /CUMM (0.0-0.7); ABSOLUTE GRANULOCYTE CT 5.6 /CUMM (1.4-6.5); ABSOLUTE LYMPH COUNT 1.7 /CUMM (1.2-3.4); ABSOLUTE MONOCYTE COUNT 0.9 /CUMM (0.10-0.60); BASOPHIL % 0.2 % (0.0-2.0); EOSINOPHIL % 1.1 % (0-5); GRANULOCYTE % 67.3 % (42.2-75.2); HEMATOCRIT 36.2 % (37-47); MEAN CORPUSCULAR HGB 29.2 PG (27.0-31.0); MEAN CORPUSCULAR HGB CONC 32.2 G/DL (33.0-37.0); MEAN CORPUSCULAR VOLUME 90.8 FL (81.0-99.0); MEAN PLATELET VOLUME 8.5 FL (7.4-10.4); PLATELET COUNT 210 /CUMM (130-400); RBC DISTRIBUTION WIDTH 19.3 % (11.5-14.5); RED BLOOD CELL CT 3.99 /CUMM (4.20-5.40); WHITE BLOOD CELL COUNT 8.3 /CUMM (4.8-10.8)
[2016-11-28 10:51] LABS: PT 19.8 SEC (9.4-12.5)
--- NOTE | 2016-11-28 12:20 | History & Physical ---
JOSELIN SPICER MD 11/28/16 1219: General Information and HPI MD Statement: I have seen and personally examined AMINTA MAK and documented this H&P. The patient is a 81 year old F who presented with a patient stated chief complaint of [weight gain and leg swelling]. Source of Information: patient, family History of Present Illness: A 71-year-old female with a past medical history of hypertension, hyperlipidemia , COPD on 2 L, oxygen, paroxysmal atrial fibrillation(currently on Apixaban), insulin-dependent diabetes mellitus, history of mitral valve replacement with bioprosthetic valve years back, and at that time she underwent a maze procedure with ligation of the left atrial appendage status post permanent pacemaker implantation for symptomatic bradycardia who presented to the [facility] emergency department for bilateral increased leg swelling for the last 3 days. The patient has noticed that she has gained weight and has been feeling tired and has been having difficulty ambulation. At baseline the patient normally gets care from a home health aid service who is present with the patient to help her with her daily activities 24-hour healthcare. She denies any shortness of breath cough or persistent wheezing. She has been following up with her hl7 interface developer on a regular basis. No recent sick contacts or any recent travels. She denies any palpitations, chest pain, orthopnea, or exertional dyspnea. At home the patient is at Bumex 6 mg daily(2 mg in the morning and 4 mg at night which she was compliant at home) Allergies/Medications Allergies: Coded Allergies: Penicillins (Mild, RASH 01/24/16) TOLERATES CEPHALOSPORINS Home Med list Albuterol Sulfate 2.5 MG/3 ML VIAL.NEB 3 ML INH BID PRN breathing Albuterol Sulfate (Proventil Hfa) 6.7 GM HFA.AER.AD 2 PUF INH Q4P BREATHING USE THIS IF YOU CANNOT GET THE NEBULIZER MACHINE Apixaban (Eliquis) 5 MG TABLET 1 TAB PO BID BLOOD THINNER (Reported) Bumetanide 2 MG TABLET 2 TAB PO BID WATER PILL (Reported) Diltiazem Cd (Diltiazem ER) 120 MG CAP.ER.DEG 120 MG PO DAILY AFIB Ferrous Sulfate 325 MG TABLET 1 TAB PO BID SUPPLEMENT (Reported) Glimepiride (Amaryl) 2 MG TABLET 1 TAB PO BID DM (Reported) Insulin Glargine,Hum.rec.anlog (Brii Amado) 300 UNIT/1 ML INSULN.PEN 25 U SC DAILY DIABETES (Reported) Insulin Lispro (Humalog Kwikpen U-100) 100 UNIT/1 ML INSULN.PEN DIABETES ( Reported) BEFORE MEALS Blood Insulin Sugar Units 151-200 1 201-250 2 251-300 3 301-350 4 351-400 5 >400 6 Call Doctor Losartan Potassium 50 MG TABLET 1 TAB PO DAILY high blood pressure Metoprolol Tartrate 25 MG TABLET 25 MG PO BID AFIB Potassium Chloride 20 MEQ TAB.ER.PRT 1 TAB PO DAILY K+ (Reported) Theophylline Anhydrous 300 MG TAB.ER.12H 0.5 TAB PO DAILY CENTRAL SLEEP APNEA (Reported) Past History Travel History Traveled to [place] past 21 day No Medical History Neurological: peripheral neuropathy EENT: NONE Cardiovascular: AFIB, CAD, CHF, hypertension, hyperlipidemia, myocardial infarction, MVR (2006) SICK SINUS S/P PACEMAKER 2013 PIG VALVE DVT permanent pacemaker Respiratory: pneumonia Gastrointestinal: GI bleed s/p coil embolization of the hepatic flexure. 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 mitral valve replacement with a #21 Mercado II with ligation of the left atrial appendage porcine valve with removal of left atrial appendage ligation of left atrial appendage History of MRSA: No History of VRE: No History of CDIFF: No Surgical History Surgical History: appendectomy, cholecystectomy, hernia repair-inguinal (right), hernia repair-ventral, hysterectomy, L BREAST LUMPECTOMY (NO RESTRICTIONS) R KNEE REPLACEMENT left total knee replacement incarcerated hernia repair ECHO Results (as available) Date of last Echo 08/05/16 EF% 70 Past Family/Social History Family History Relations & Conditions if any MOTHER Cardiomegaly FATHER FH: [place] (myocardial infarction) FH: stroke BROTHER (valvular heart disease). Relation not specified for: FH: premature coronary heart disease FH: stroke Psychosocial History Who Do You Live With? self Services at Home: Nursing, Oxygen Primary Language: Swiss Living Will? yes Functional Ability ADLs Independent: dressing, eating, toileting, bathing. Ambulation: cane, walker IADLs Independent: finances, telephone, medication admin. Needs Assist: shopping, housework, food prep, transportation. Review of Systems Review of Systems Constitutional: Reports: see HPI. EENTM: Reports: see HPI. Cardiovascular: Reports: orthopena. Denies: see HPI, chest pain, edema, palpitations. Respiratory: Reports: orthopnea, short of breath, sputum production. Denies: cough, hemoptysis, wheezing. GI: Denies: abdominal pain, bloating, constipation, diarrhea, distention, bowel incontinence. Genitourinary: Reports: see HPI. Musculoskeletal: Reports: see HPI. Skin: Reports: see HPI. Denies: cysts, change in skin color, change in hair/nails, dryness, erythema. Neurological/Psychological: Denies: anxiety, ataxia, confusion, depressed. Exam & Diagnostic Data Last 24 Hrs of Vital Signs/I&O Vital Signs Date Time Temp Pulse Resp B/P Pulse O2 O2 Flow FiO2 Ox Delivery Rate 11/28 1251 97.4 84 20 128/56 96 Nasal 2.5L Cannula 11/28 1058 95 Nasal 3.0L Cannula 11/28 0945 98.4 112 20 126/64 94 Nasal 3.0L Cannula Intake & Output 11/28 1600 11/28 0800 11/28 0000 Intake Total Output Total 500 Balance -500 Output, Urine 500 Physical Exam General Appearance Alert, Oriented X3, Cooperative Skin No Rashes, No Breakdown HEENT Atraumatic, PERRLA Neck Supple, No JVD, No thryomegaly Lymphatic Axillary nl, Cervical nl Cardiovascular Regular Rate, Normal S1, Normal S2 Lungs bilateral decreased airway entry and bilateral crackles Abdomen Normal Bowel Sounds, Soft, No Tenderness Neurological Normal Speech, Strength at 5/5 X4 Ext, Normal Tone Extremities bilateral 3+ leg edema Vascular Normal Pulses, Pulses Symmetrical Body Front and Back (Adult) 1) Bilateral 3+ leg edema with redness Assessment/Plan Assessment: An 81-year-old female with a past extensive history of stage II diastolic dysfunction status post bioprosthetic wall and mitral valve replacement who presented to the [facility] with bilateral increased in leg swelling and no exertional dyspnea or shortness of breath. Vital signs at the time of admission shows Blood pressure of 128/56, respiration rate of 84, temperature of 98.4, saturation of 94% on 3 L of oxygen EKG showed normal sinus rhythm Chest x-ray shows Cardiomegaly, pulmonary vascular congestion and probable mild interstitial edema. Also, pulmonary arteries are chronically enlarged, as may be seen in pulmonary arterial hypertension. Patient last echocardiogram does show that(08/05/2016) Normal left ventricular size with mild left ventricular hypertrophy. Normal systolic function with no obvious regional wall motion abnormalities. The ejection fraction is visually estimated at 70%. Labs shows normal WBC and hemoglobin and hematocrit of 8, creatinine 1.2, negative troponin of 0.06, elevated proBNP of greater than 4000 Assessment 1. Acute on chronic diastolic CHF with bilateral leg swellings: The etiology for this acute bilateral leg swelling and fluid overload is unknown at this point for the EKG and the labs does not reveal any underlying acute coronary syndrome at this point 2. History of paroxysmal atrial fibrillation 3. History of permanent pacemaker placement for sick sinus syndrome . History of bioprosthetic valve replacement in the mitral area 5. History of COPD on 2 L of oxygen 6. History of diabetes mellitus insulin-dependent Plan Admit to telemetry floor We will check serial troponins and EKG and to IV Bumex 2 mg BID Replete potassium and other electrolytes Daily weights and strict in's and O's Continue with albuterol and TRC nebmbolization No need to repeat a transthoracic echocardiogram is previous echo was done in less than 6 months back We will check serial troponins and EKG anticipate to rule out underlying cause for acute CHF Continue with Levemir and NovoLog sliding scale Oxygen supplementation Physical therapy due to prophylaxis at all times with Eliquis Patient is full code Cardiology consult As Ranked By This Provider Problem List: 1. Hyperglycemia 2. Dyspnea 3. Dependent edema 4. CKD (chronic kidney disease) stage 3, GFR 30-59 ml/min 5. COPD exacerbation Core Measures/Miscellaneous Acute Coronary Syndrome ACS Diagnosis: No Cerebrovascular Accident CVA/TIA Diagnosis: No Congestive Heart Failure CHF Diagnosis: Yes Date of most recent Echo: 08/05/16 Last Known EF %: 70 DEEPA/ARB for EF <40%: Yes Venous Thromboembolism VTE Risk Factors: Acute medical illness, Age > 40 VTE Prophylaxis Ordered Inpt: [facility] prophylaxis d/t: No contraindications No VTE Pharm Prophylaxis d/t: No contraindications VTE Diagnosis: No VTE Type: NONE VTE Confirmed by (Test): NONE Severe Sepsis Severe Sepsis Present: No Septic Shock Septic Shock Present: No Miscellaneous Documentation Attending Case Discussed With: EM PONCE MD Primary Care Physician: EM PONCE MD Patient sees these Specialists Dr. Galloway Level of Patient Care: Telemetry EM PONCE MD 11/28/16 1240: Attending MD Review Statement Attending Statement Attending MD Statement: examined this patient, discuss w/resident/PA/TAX ADJUSTER, agreed w/resident/PA/TAX ADJUSTER, discussed with family, reviewed EMR data (avail) Attending Assessment/Plan: 81-year-old female with history of diabetes, mitral valve replacement, paroxysmal atrial fibrillation on Eliquis, diastolic CHF and chronic kidney disease stage III presenting with shortness of breath. Patient was doing well since her recent discharge currently on bumax. She presents with shortness of breath and weight gain. X-ray suggests congestion and patient appears to be in acute CHF exacerbation. She will be admitted for IV diuresis and also in-house cardiology evaluation. Plan Start IV Lasix 80 mg IV twice a day Troponins 3 Replete potassium Monitor kidney function closely and check I's and O's with daily weights Cardiology consult Continue other home medication including Eliquis Place patient on insulin regimen and Accu-Cheks Current Medications Sig/Andrei Start time Last Medication Dose Route Stop Time Status Admin Acetaminophen 650 MG Q6P PRN 11/28 1230 AC PO Acetaminophen/ 1 TAB Q6P PRN 11/28 1230 AC Hydrocodone Bitart PO Albuterol Sulfate 2 PUF Q4P PRN 11/28 1230 AC INH Albuterol Sulfate 3 ML BID PRN 11/28 1230 AC INH Apixaban 5 MG BID 11/28 2200 AC PO Diltiazem HCl 120 MG DAILY 11/29 1000 AC PO Furosemide 0 .STK-MED ONE 11/28 1036 DC IV Furosemide 60 MG ONCE ONE 11/28 1000 DC 11/28 IV 11/28 1001 1100 Hydromorphone HCl 1 MG Q6P PRN 11/28 1230 AC IV Insulin Aspart 0 TIDAC 11/28 1700 AC SC Insulin Detemir 25 UNITS DAILY 11/29 1000 AC SC Metoprolol Tartrate 25 MG BID 11/28 2200 AC PO Potassium Chloride 40 MEQ ONCE ONE 11/28 1230 DC PO 11/28 1231 Laboratory Tests 11/28 1026 Chemistry Sodium (137 - 145 mmol/L) 139 Potassium (3.5 - 5.1 mmol/L) 3.4 L Chloride (98 - 107 mmol/L) 95 L Carbon Dioxide (22 - 30 mmol/L) 32 H Anion Gap (5 - 16) 12 BUN (7 - 17 mg/dL) 38 H Creatinine (0.5 - 1.0 mg/dL) 1.2 H Estimated GFR (>60 ml/min) 43 L BUN/Creatinine Ratio (7 - 25 %) 31.7 H Glucose (65 - 99 mg/dL) 258 H Calcium (8.4 - 10.2 mg/dL) 9.4 Magnesium (1.6 - 2.3 mg/dL) 2.0 Total Bilirubin (0.2 - 1.3 mg/dL) 0.7 AST (14 - 36 U/L) 23 ALT (9 - 52 U/L) 24 Alkaline Phosphatase (<127 U/L) 71 Troponin I (< 0.11 ng/ml) 0.06 [id number]-[id number]-[id number] Pept (<125 pg/mL) 4260 H Total Protein (6.3 - 8.2 g/dL) 7.3 Albumin (3.5 - 5.0 g/dL) 3.6 Globulin (1.9 - 4.2 gm/dL) 3.7 Albumin/Globulin Ratio (1.1 - 2.2 %) 1.0 L Coagulation PT (9.4 - 12.5 SEC) 19.8 H INR (0.90 - 1.19) 1.90 H Hematology CBC w Diff NO MAN DIFF REQ WBC (4.8 - 10.8 /CUMM) 8.3 RBC (4.20 - 5.40 /CUMM) 3.99 L Hgb (12.0 - 16.0 G/DL) 11.6 L Hct (37 - 47 %) 36.2 L MCV (81.0 - 99.0 FL) 90.8 MCH (27.0 - 31.0 PG) 29.2 RDW (11.5 - 14.5 %) 19.3 H Plt Count (130 - 400 /CUMM) 210 MPV (7.4 - 10.4 FL) 8.5 Gran % (42.2 - 75.2 %) 67.3 Lymphocytes % (20.5 - 51.1 %) 20.8 Monocytes % (1.7 - 9.3 %) 10.6 H Eosinophils % (0 - 5 %) 1.1 Basophils % (0.0 - 2.0 %) 0.2 Absolute Granulocytes (1.4 - 6.5 /CUMM) 5.6 Absolute Lymphocytes (1.2 - 3.4 /CUMM) 1.7 Absolute Monocytes (0.10 - 0.60 /CUMM) 0.9 H Absolute Eosinophils (0.0 - 0.7 /CUMM) 0.1 Absolute Basophils (0.0 - 0.2 /CUMM) 0 PUBS MCHC (33.0 - 37.0 G/DL) 32.2 L Vital Signs Date Time Temp Pulse Resp B/P Pulse O2 O2 Flow FiO2 Ox Delivery Rate 11/28 1058 95 Nasal 3.0L Cannula 11/28 0945 98.4 112 20 126/64 94 Nasal 3.0L Cannula
--- NOTE | 2016-11-28 12:38 | Admission Certification ---
Admission Certification Certification Statement - As attending physician, I certify that at the time of - admission, based on clinical presentation, severity of - symptoms, need for further diagnostic testing and - therapeutic interventions, and risk of adverse outcomes - without in-hospital treatment, in my clinical assessment, - this patient requires an acute hospital stay for a minimum - of two nights or longer. I have also considered psychsocial - factors such as support system, advanced age, financial - issues, cognitive issues, and failed out-patient treatments, - past re-admission history, safety of patient, and lack of - compliance as applicable. Specific rationale supporting this admission is: chf
[2016-11-28 13:47] VITALS: BP 114/60
--- NOTE | 2016-11-28 15:29 | Cons- Cardiology ---
General Information and HPI Consulting Request Date of Consult: 11/28/16 Requested By: EM PONCE MD History of Present Illness: Ira is an 81 year-old female with history of diabetes mellitus, hypertension , congestive heart failure, anemia, paroxysmal atrial fibrillation, and mitral valve replacement. She is status post placement of a #21 Mercado II porcine heart valve. At the time of her surgery, she underwent a maze procedure with ligation of the left atrial appendage. This surgery was performed in 2010. Finally, this patient has undergone a permanent pacemaker implantation for symptomatic bradycardia. Ira presented to the ER due to concerns regarding increasing leg swelling bilaterally, weight gain and fatigue with difficulty ambulating. She reports shortness of breath with ambulation and orthopnea. There is no chest discomfort, wheezing, lightheadedness or palpitations. In the past Ira noted intermittent rapid palpitations associated with mild lightheadedness but these symptoms are not apparent at this time. Ira is known from a prior recent echo to have at least mild to moderate stenosis of her bioprosthetic mitral valve and mild aortic stenosis. She is now on Bumex for control of her edema. Ira has tried Sotolol for rhythm control which appeared to be effective although the patient, nevertheless, desired to stop this medication. Multaq was used in the past but was discontinued due to bradycardia pre-pacemaker implantation. We also tried digoxin but this drug was stopped when the patient became dig toxic. It should be recalled that on a prior hospital visit she did have a mild rise in cardiac enzymes but this was in the setting of prolonged tachycardia. She does have mild renal insufficiency and a moderately stenotic mitral valve. Her creatinine today is 1.1. Ira's last stress test showed a large region of mildly decreased radiotracer uptake in the anterior wall of the left ventricle without improvement on resting images. This was consistent with a fixed defect, possibly breast tissue attenuation artifact. No ischemia was identified. Her overall EF was normal at 71%. Previously, on another admission, this patient had a CT angiogram to rule out a PE which found a filling defect in the left atrium. This defect was found to be atrial thrombus. There were also some nonspecific pulmonary nodules measuring less than 4 mm. Pulmonary enlargement consistent with pulmonary hypertension was also noted. Finally, there were some nonspecific enlarged mediastinal and bilateral hilar nodes. In consideration of the left atrial thrombus, I did start the patient on Pradaxa 150 mg b.i.d. A subsequent followup echo did show resolution of the left atrial thrombus. The patient's last lipid profile shows an LDL of 79 with an HDL of 60 and triglycerides of 174. To review the patient's last cardiac catheterization, this disclosed a large patent left main. The LAD had luminal irregularities. The left circumflex harbored an 80% stenosis in the AV groove at the takeoff of an obtuse marginal 3 branch. The mid AV groove left circumflex had a 70%. The obtuse marginal 3 itself was patent and tortuous. The RCA was a large, dominant , tortuous vessel with luminal irregularities. Her overall EF was 60% with severe mitral regurgitation. In consideration of these findings, I performed a planned balloon angioplasty in the AV groove left circumflex as well as at the takeoff of the obtuse marginal 3 branch. This resulted in 0% residual stenosis in the mid vessel with a 40% residual stenosis in the AV groove left circumflex at the point where the obtuse marginal 3 takes off. To review some of the patient's past history, I first saw Ira in August 2007 when she presented to [facility] with shortness of breath, orthopnea, and lower extremity swelling suggestive of heart failure. She was anemic at that time with a hemoglobin and hematocrit of 8.0 and 24. The patient underwent coil embolization of her hepatic flexure. At that time, she was followed by Dr. Dowling for anemia as well as breast cancer and by Dr. Palacios for diabetes. A CT angiogram to evaluate for renal artery stenosis disclosed bilateral hypodense adrenal nodules but no evidence of renal artery stenosis. Patient has also been on Tekturna at 1 time but this medication was also discontinued to avoid any significant side effects. Finally , Felodipine was tried at 10 mg a day, and this resulted in tongue swelling suggestive of an allergic reaction. I believe she has had similar reactions to other calcium channel blockers. 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 Apixaban (Eliquis) 5 MG TABLET 1 TAB PO BID BLOOD THINNER (Reported) Bumetanide 2 MG TABLET 2 TAB PO BID WATER PILL (Reported) Diltiazem Cd (Diltiazem ER) 120 MG CAP.ER.DEG 120 MG PO DAILY AFIB Ferrous Sulfate 325 MG TABLET 1 TAB PO BID SUPPLEMENT (Reported) Glimepiride (Amaryl) 2 MG TABLET 1 TAB PO BID DM (Reported) Insulin Glargine,Hum.rec.anlog (Toujeo Solostar) 300 UNIT/1 ML INSULN.PEN 25 U SC DAILY DIABETES (Reported) Insulin Lispro (Humalog Kwikpen U-100) 100 UNIT/1 ML INSULN.PEN DIABETES ( Reported) BEFORE MEALS Blood Insulin Sugar Units 151-200 1 201-250 2 251-300 3 301-350 4 351-400 5 >400 6 Call Doctor Losartan Potassium 50 MG TABLET 1 TAB PO DAILY high blood pressure Metoprolol Tartrate 25 MG TABLET 25 MG PO BID AFIB Potassium Chloride 20 MEQ TAB.ER.PRT 1 TAB PO DAILY K+ (Reported) Theophylline Anhydrous 300 MG TAB.ER.12H 0.5 TAB PO DAILY CENTRAL SLEEP APNEA (Reported) Past History Travel History Traveled to [place] past 21 day No Medical History Neurological: peripheral neuropathy EENT: NONE Cardiovascular: AFIB, CAD, CHF, hypertension, hyperlipidemia, myocardial infarction, MVR (2006) SICK SINUS S/P PACEMAKER 2013 PIG VALVE DVT permanent pacemaker Respiratory: pneumonia Gastrointestinal: GI bleed s/p coil embolization of the hepatic flexure. 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 mitral valve replacement with a #21 Mercado II with ligation of the left atrial appendage porcine valve with removal of left atrial appendage ligation of left atrial appendage Surgical History Surgical History: appendectomy, cholecystectomy, hernia repair-inguinal (right), hernia repair-ventral, hysterectomy, L BREAST LUMPECTOMY (NO RESTRICTIONS) R KNEE REPLACEMENT left total knee replacement incarcerated hernia repair Family History Relations & Conditions If Any: MOTHER Cardiomegaly FATHER FH: [place] (myocardial infarction) FH: stroke BROTHER (valvular heart disease). Relation not specified for: FH: premature coronary heart disease FH: stroke Psychosocial History Who Do You Live With? self Services at Home: Nursing, Oxygen Primary Language: St Helen[place] Living Will? yes Functional Ability ADLs Independent: dressing, eating, toileting, bathing. Ambulation: cane, walker IADLs Independent: finances, telephone, medication admin. Needs Assist: shopping, housework, food prep, transportation. ECHO Results (as available) Date of last Echo 08/05/16 EF% 70 Exam & Diagnostic Data Vital Signs and I&O Vital Signs Date Time Temp Pulse Resp B/P Pulse O2 O2 Flow FiO2 Ox Delivery Rate 11/28 1347 97.8 84 20 114/60 95 Nasal 3.0L Cannula 11/28 1251 97.4 84 20 128/56 96 Nasal 2.5L Cannula 11/28 1058 95 Nasal 3.0L Cannula 11/28 0945 98.4 112 20 126/64 94 Nasal 3.0L Cannula Intake & Output 11/28 1600 11/28 0800 11/28 0000 11/27 1600 11/27 0800 11/27 0000 Intake Total Output Total 500 Balance -500 Output, Urine 500 Physical Exam: General: WD/ obese female in NAD; alert and oriented x 3 HEENT: NC/AT, PERRL, EOMI Neck: no JVD, no carotid bruit Heart: RRR with 3/6 systolic murmur Lungs: no crackles or wheezing Abdomen: soft, Obese, NT, +ve bowel sounds EXtremtieis: 3+ leg edema bilaterally superimposed on chronic lymphedema Assessment/Plan Assessment/Plan * Ira has at least moderate mitral stenosis of her prosthetic valve. This has resulted in increased right sided pressures and chronic edema and signs of RV failure. This patient should be diuresed with Bumex 4mg IV BID. Follow her renal function and potassium. * replete potassium to 4.0 * This patient has chronic lymphedema and large lower extremities at baseline although this is clearly worse than normal. Consult Acknowledgment - Thank you for your consult request.
[2016-11-28 16:44] VITALS: BP 130/82
[2016-11-28 20:08] VITALS: BP 138/74
[2016-11-29 00:31] VITALS: BP 160/70
--- NOTE | 2016-11-29 04:59 | PN- Housestaff ---
Subjective Follow-up For: CHF exacerbation Complaints: no complaints Subjective: Patient has been doing fine. She is complaining of right upper extremity pain more in the right upper shoulder. Review of Systems Constitutional: Reports: see HPI. Objective Last 24 Hrs of Vital Signs/I&O Vital Signs Date Time Temp Pulse Resp B/P Pulse O2 O2 Flow FiO2 Ox Delivery Rate 11/29 0756 98.2 125 20 122/84 95 Nasal Cannula 11/29 0031 97.8 73 18 160/70 96 11/29 0000 Nasal 3.0L Cannula 11/28 2010 101 138/74 11/28 2007 99 138/74 11/28 1644 97.9 74 20 130/82 96 11/28 1600 95 Nasal 3.0L Cannula 11/28 1347 97.8 84 20 114/60 95 Nasal 3.0L Cannula 11/28 1251 97.4 84 20 128/56 96 Nasal 2.5L Cannula 11/28 1058 95 Nasal 3.0L Cannula Intake & Output 11/29 1600 11/29 0800 11/29 0000 Intake Total 440 Output Total 800 1700 Balance -800 -1260 Intake, Oral 440 Number 1 Bowel Movements Output, Urine 800 1700 Patient 227 lb Weight Physical Exam General Appearance: Alert, Oriented X3, Cooperative Skin: No Rashes, No Breakdown HEENT: Atraumatic, PERRLA Neck: Supple, No JVD, No thryomegaly Lymphatic: Axillary nl Cardiovascular: Normal S1, Normal S2, No Murmurs Lungs: bilateral decreased airway entry bilateral congestion Assessment/Plan Assessment: This is 81-year-old female with a past medical history of hypertension, hyperlipidemia status post pacemaker placement, paroxysmal atrial fibrillation who presented to the [facility] with worsening shortness of breath and bilateral leg swellings. Assessment 1. Acute on chronic systolic CHF 2. Paroxysmal atrial fibrillation status post pacemaker placemen 3. History of coronary artery disease 4. History of hypertension 5. 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 Acute right shoulder pain which is worsened with overhead movement and abduction. Plan Continue monitoring on telemetry Strict daily weights and in the nose Aggressive IV diuresis with IV 4 mg twice a day with a plan to taper tomorrow Leg swelling greater than yesterday DD BEP Considering that the patient has abdominal afibrillation she would be a candidate for Coumadin therapy. This needs to be further addressed and discussed with the patient's release coordinator Statin therapy Xray of shoulder for the pain DVT prophylaxis at all times Full code Problem List: 1. Shortness of breath 2. Hyperglycemia 3. Dyspnea Pain Ratin Pain Location: right shoulde pain Pain Goal: Remain pain free Pain Plan: none Tomorrow's Labs & Rationales: BEP
[2016-11-29 07:56] VITALS: BP 122/84
--- NOTE | 2016-11-29 09:12 | PN- Att Addend ---
Attending Addendum Attending Brief Note Patient reports improved breathing General Appearance: Alert, No Acute Distress Skin: Grossly normal HEENT: PEERLA Neck: Supple, No JVD Cardiovascular: Irregular rhythm Lungs: Clear to Auscultation, Normal Air Movement Abdomen: Normal Bowel Sounds, Soft, No Tenderness Neurological: Normal Speech, Strength at 5/5 X4 Ext, Cranial Nerves 3-12 NL, Reflexes 2+ Extremities: Pedal edema Assessment She is about 2500 mL negative balance. Currently on Bumex IV as per cardiology recommendations. We will continue to diurese aggressively Plan Continue IV diuresis Replete potassium Monitor kidney function closely and check I's and O's with daily weights Continue other home medication including Eliquis Place patient on insulin regimen and Accu-Cheks Current Medications Sig/Andrei Start time Last Medication Dose Route Stop Time Status Admin Acetaminophen 650 MG Q6P PRN 11/28 1230 AC PO Acetaminophen/ 1 TAB Q6P PRN 11/28 1230 AC Hydrocodone Bitart PO Albuterol Sulfate 2 PUF Q4P PRN 11/28 1230 AC INH Albuterol Sulfate 3 ML BID PRN 11/28 1230 AC INH Apixaban 5 MG BID 11/28 2200 AC 11/28 PO 2010 Bumetanide 4 MG BID 11/28 2200 AC 11/28 IV 1832 Bumetanide 2 MG BID 11/28 1521 DC IV Diltiazem HCl 120 MG DAILY 11/29 1000 AC PO Furosemide 80 MG 7:30 AM, & 4:30 PM 11/28 1630 CAN IV Furosemide 0 .STK-MED ONE 11/28 1036 DC IV Furosemide 60 MG ONCE ONE 11/28 1000 DC 11/28 IV 11/28 1001 1100 Hydromorphone HCl 1 MG Q6P PRN 11/28 1230 AC IV Insulin Aspart 0 TIDAC 11/28 1700 AC 11/28 SC 1715 Insulin Detemir 25 UNITS DAILY 11/29 1000 AC SC Metoprolol Tartrate 25 MG BID 11/28 2200 AC 11/28 PO 2010 Potassium Chloride 0 .STK-MED ONE 11/28 1249 DC PO Potassium Chloride 40 MEQ ONCE ONE 11/28 1230 DC 11/28 PO 11/28 1231 1256 Theophylline 150 MG DAILY 11/29 1000 AC PO Laboratory Tests 11/29 11/29 11/28 11/28 0700 0110 2200 1815 Chemistry Sodium (137 - 145 mmol/L) 140 Potassium (3.5 - 5.1 mmol/L) 4.0 Chloride (98 - 107 mmol/L) 98 Carbon Dioxide (22 - 30 mmol/L) 33 H Anion Gap (5 - 16) 9 BUN (7 - 17 mg/dL) 29 H Creatinine (0.5 - 1.0 mg/dL) 1.2 H Estimated GFR (>60 ml/min) 43 L BUN/Creatinine Ratio (7 - 25 %) 24.2 Troponin I (< 0.11 ng/ml) 0.06 Cancelled 0.06 11/28 1026 Chemistry Sodium (137 - 145 mmol/L) 139 Potassium (3.5 - 5.1 mmol/L) 3.4 L Chloride (98 - 107 mmol/L) 95 L Carbon Dioxide (22 - 30 mmol/L) 32 H Anion Gap (5 - 16) 12 BUN (7 - 17 mg/dL) 38 H Creatinine (0.5 - 1.0 mg/dL) 1.2 H Estimated GFR (>60 ml/min) 43 L BUN/Creatinine Ratio (7 - 25 %) 31.7 H Glucose (65 - 99 mg/dL) 258 H Calcium (8.4 - 10.2 mg/dL) 9.4 Magnesium (1.6 - 2.3 mg/dL) 2.0 Total Bilirubin (0.2 - 1.3 mg/dL) 0.7 AST (14 - 36 U/L) 23 ALT (9 - 52 U/L) 24 Alkaline Phosphatase (<127 U/L) 71 Troponin I (< 0.11 ng/ml) 0.06 [id number] Pept (<125 pg/mL) 4260 H Total Protein (6.3 - 8.2 g/dL) 7.3 Albumin (3.5 - 5.0 g/dL) 3.6 Globulin (1.9 - 4.2 gm/dL) 3.7 Albumin/Globulin Ratio (1.1 - 2.2 %) 1.0 L Coagulation PT (9.4 - 12.5 SEC) 19.8 H INR (0.90 - 1.19) 1.90 H Hematology CBC w Diff NO MAN DIFF REQ WBC (4.8 - 10.8 /CUMM) 8.3 RBC (4.20 - 5.40 /CUMM) 3.99 L Hgb (12.0 - 16.0 G/DL) 11.6 L Hct (37 - 47 %) 36.2 L MCV (81.0 - 99.0 FL) 90.8 MCH (27.0 - 31.0 PG) 29.2 RDW (11.5 - 14.5 %) 19.3 H Plt Count (130 - 400 /CUMM) 210 MPV (7.4 - 10.4 FL) 8.5 Gran % (42.2 - 75.2 %) 67.3 Lymphocytes % (20.5 - 51.1 %) 20.8 Monocytes % (1.7 - 9.3 %) 10.6 H Eosinophils % (0 - 5 %) 1.1 Basophils % (0.0 - 2.0 %) 0.2 Absolute Granulocytes (1.4 - 6.5 /CUMM) 5.6 Absolute Lymphocytes (1.2 - 3.4 /CUMM) 1.7 Absolute Monocytes (0.10 - 0.60 /CUMM) 0.9 H Absolute Eosinophils (0.0 - 0.7 /CUMM) 0.1 Absolute Basophils (0.0 - 0.2 /CUMM) 0 PUBS MCHC (33.0 - 37.0 G/DL) 32.2 L Vital Signs Date Time Temp Pulse Resp B/P Pulse O2 O2 Flow FiO2 Ox Delivery Rate 11/29 0756 98.2 125 20 122/84 95 Nasal Cannula 11/29 0031 97.8 73 18 160/70 96 11/29 0000 Nasal 3.0L Cannula 11/28 2010 101 138/74 11/28 2007 99 138/74 11/28 1644 97.9 74 20 130/82 96 11/28 1600 95 Nasal 3.0L Cannula 11/28 1347 97.8 84 20 114/60 95 Nasal 3.0L Cannula 11/28 1251 97.4 84 20 128/56 96 Nasal 2.5L Cannula 11/28 1058 95 Nasal 3.0L Cannula 11/28 0945 98.4 112 20 126/64 94 Nasal 3.0L Cannula
--- NOTE | 2016-11-29 13:56 | PN- Pulmonary ---
Subjective HPI/Critical Care Issues: A 71-year-old female with a past medical history of hypertension, hyperlipidemia , COPD on 2 L, oxygen, paroxysmal atrial fibrillation(currently on Apixaban), insulin-dependent diabetes mellitus, history of mitral valve replacement with bioprosthetic valve years back, and at that time she underwent a maze procedure with ligation of the left atrial appendage status post permanent pacemaker implantation for symptomatic bradycardia who presented to the [facility] emergency department for bilateral increased leg swelling for the last 3 days. The patient has noticed that she has gained weight and has been feeling tired and has been having difficulty ambulation. At baseline the patient normally gets care from a home health aid service who is present with the patient to help her with her daily activities 24-hour healthcare. She denies any shortness of breath cough or persistent wheezing. But noted to wheeze this am She has been following up with her leadership coach on a regular basis. No recent sick contacts or any recent travels. She denies any palpitations, chest pain, orthopnea, or exertional dyspnea. At home the patient is at Bumex 6 mg daily(2 mg in the morning and 4 mg at night which she was compliant at home) Pt is suppose to be on cpap before but has refused Review of Systems Constitutional: Reports: see HPI. EENTM: Reports: see HPI. Cardiovascular: Reports: orthopena. Denies: see HPI, chest pain, edema, palpitations. Respiratory: Reports: orthopnea, short of breath, sputum production. Denies: cough, hemoptysis, wheezing. GI: Denies: abdominal pain, bloating, constipation, diarrhea, distention, bowel incontinence. Genitourinary: Reports: see HPI. Musculoskeletal: Reports: see HPI. Skin: Reports: see HPI. Denies: cysts, change in skin color, change in hair/nails, dryness, erythema. Neurological/Psychological: Denies: anxiety, ataxia, confusion, depressed. Objective Current Medications: Current Medications Sig/Andrei Start time Last Medication Dose Route Stop Time Status Admin Acetaminophen 650 MG Q6P PRN 11/28 1230 AC PO Acetaminophen/ 1 TAB Q6P PRN 11/28 1230 AC Hydrocodone Bitart PO Albuterol Sulfate 3 ML BID 11/29 1013 AC 11/29 INH 1015 Albuterol Sulfate 2 PUF Q4P PRN 11/28 1230 AC INH Albuterol Sulfate 3 ML BID PRN 11/28 1230 DC INH Apixaban 5 MG BID 11/28 2200 AC 11/29 PO 1106 Bumetanide 4 MG BID 11/28 2200 AC 11/29 IV 1107 Bumetanide 2 MG BID 11/28 1521 DC IV Diltiazem HCl 120 MG DAILY 11/29 1000 AC 11/29 PO 1106 Furosemide 80 MG 7:30 AM, & 4:30 PM 11/28 1630 CAN IV Hydromorphone HCl 1 MG Q6P PRN 11/28 1230 AC IV Insulin Aspart 0 TIDAC 11/28 1700 AC 11/29 SC 1241 Insulin Detemir 25 UNITS DAILY 11/29 1000 AC 11/29 SC 1105 Metoprolol Tartrate 25 MG BID 11/28 2200 AC 11/29 PO 1106 Theophylline 150 MG DAILY 11/29 1000 AC 11/29 PO 1106 Vital Signs & I&O Last 24 Hrs of Vitals and I&O: Vital Signs Date Time Temp Pulse Resp B/P Pulse O2 O2 Flow FiO2 Ox Delivery Rate 11/29 1106 133 122/84 11/29 1031 Nasal 3.0L Cannula 11/29 1020 93 Nasal 3.0L Cannula 11/29 0800 95 Nasal 3.0L Cannula 11/29 0756 98.2 125 20 122/84 95 Nasal Cannula 11/29 0031 97.8 73 18 160/70 96 11/29 0000 Nasal 3.0L Cannula 11/28 2010 101 138/74 11/28 2007 99 138/74 11/28 1644 97.9 74 20 130/82 96 11/28 1600 95 Nasal 3.0L Cannula Intake & Output 11/29 1600 11/29 0800 11/29 0000 Intake Total 440 Output Total 800 1700 Balance -800 -1260 Intake, Oral 440 Number 1 Bowel Movements Output, Urine 800 1700 Patient 227 lb Weight Impression/Plan Impression/Plan Impression/Plan: Chest x-ray shows Cardiomegaly, pulmonary vascular congestion and probable mild interstitial edema. Also, pulmonary arteries are chronically enlarged, as may be seen in pulmonary arterial hypertension. Patient last echocardiogram does show that(08/05/2016) Normal left ventricular size with mild left ventricular hypertrophy. Normal systolic function with no obvious regional wall motion abnormalities. The ejection fraction is visually estimated at 70%. Labs shows normal WBC and hemoglobin and hematocrit of 8, creatinine 1.2, negative troponin of 0.06, elevated proBNP of greater than 400 Physical Exam General Appearance Alert, Oriented X3, Cooperative Skin No Rashes, No Breakdown HEENT Atraumatic, PERRLA Neck Supple, No JVD, No thryomegaly Lymphatic Axillary nl, Cervical nl Cardiovascular Regular Rate, Normal S1, Normal S2 Lungs bilateral decreased airway entry and bilateral crackles Abdomen Normal Bowel Sounds, Soft, No Tenderness Neurological Normal Speech, Strength at 5/5 X4 Ext, Normal Tone Extremities bilateral 3+ leg edema Vascular Normal Pulses, Pulses Symmetrical IMPRESSION 81-year-old female with history of atrial fibrillation and atrial flutter, presenting with shortness of breath, orthopnea, and lower some edema. 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 No sig copde * Significant valvular heart disease (previous mvr) with mitral stenosis and probable aortic stenosis, * Chronic respiratory failure, per pts wishes she does not want cpap * Hypertension * Acute on chronic kidney disease stage III * Type 2 diabetes * Small airway disease with recurrent bronchiolitis * Previous history of small lung nodules stable REC COnt Diuresis with bumex Check theophylline level Cpap only if she gets worse or goes into acute pulm edema with resp insuff Nebs prn if she is wheezing with duoneb COnt current care Increase activity slowly Watch bun and creat WIll follow prn Call if needed for the weekend
[2016-11-29 15:55] VITALS: BP 136/78
--- NOTE | 2016-11-29 21:46 | RADIOLOGY REPORT ---
EXAMINATION: XR SHOULDER, RIGHT CLINICAL INFORMATION: Right shoulder pain COMPARISON: Chest x-ray from 11/28/2016 TECHNIQUE: 3 views of the right shoulder. FINDINGS: No evidence of fracture or dislocation. Mild degenerative change of the acromioclavicular joint. The humeral head is high riding compatible with a chronic rotator cuff injury. There are abnormal interstitial markings within the right lung, unchanged from recent prior chest radiograph, and compatible with interstitial edema IMPRESSION: No fracture or dislocation. High riding humeral head compatible with chronic rotator cuff injury.
--- NOTE | 2016-11-29 22:28 | PN- Cardiology ---
Subjective Subjective: * Breathing is improved after increased Bumex. * Decreased leg swelling. * Creatinine is 1.2 Objective Vital Signs and I&Os Vital Signs Date Time Temp Pulse Resp B/P Pulse O2 O2 Flow FiO2 Ox Delivery Rate 11/29 2045 95 Nasal 3.0L Cannula 11/29 2043 136 134/82 11/29 1555 98.9 96 20 136/78 94 Nasal 3.0L Cannula 11/29 1106 133 122/84 11/29 1031 Nasal 3.0L Cannula 11/29 1020 93 Nasal 3.0L Cannula 11/29 0800 95 Nasal 3.0L Cannula 11/29 0756 98.2 125 20 122/84 95 Nasal Cannula 11/29 0031 97.8 73 18 160/70 96 11/29 0000 Nasal 3.0L Cannula Intake & Output 11/29 1600 11/29 0800 11/29 0000 11/28 1600 11/28 0800 11/28 0000 Intake Total 516 440 Output Total 5563 165 9354 500 Balance -634 -800 -1260 -500 Intake, IV 36 Intake, Oral 480 440 Number 1 1 Bowel Movements Output, Urine 3930 502 2397 500 Patient 227 lb Weight Physical Exam: General: WD/ obese female in NAD; alert and oriented x 3 Neck: no JVD, no carotid bruit Heart: RRR with 3/6 systolic murmur Lungs: no crackles or wheezing EXtremtieis: 2+ leg edema bilaterally superimposed on chronic lymphedema Assessment/Plan Assessment/Plan * Continue Bumex 4mg IV BID and follow BUN, creatinine and potassium. Continue telemetry? Yes
[2016-11-30 00:09] VITALS: BP 132/68
--- NOTE | 2016-11-30 06:40 | PN- Housestaff ---
Subjective Follow-up For: Acute CHF and fluid overload Tele-Events Since Last Visit: Remain normal sinus rhythm Subjective: Patient doing better in the morning, still was sleeping but did not have any persistent or specific complaints from overnight Review of Systems Constitutional: Reports: see HPI. Objective Last 24 Hrs of Vital Signs/I&O Vital Signs Date Time Temp Pulse Resp B/P Pulse O2 O2 Flow FiO2 Ox Delivery Rate 11/30 0009 98.1 88 24 132/68 91 Nasal 4.0L Cannula 11/30 0000 Nasal 3.0L Cannula 11/29 2045 95 Nasal 3.0L Cannula 11/29 204 136 134/82 11/29 1600 Nasal 3.0L Cannula 11/29 1555 98.9 96 20 136/78 94 Nasal 3.0L Cannula 11/29 1106 133 122/84 11/29 1031 Nasal 3.0L Cannula 11/29 1020 93 Nasal 3.0L Cannula 11/29 0800 95 Nasal 3.0L Cannula 11/29 0756 98.2 125 20 122/84 95 Nasal Cannula Intake & Output 11/30 0800 11/30 0000 11/29 1600 Intake Total 490 516 Output Total 1150 1150 Balance -660 -634 Intake, IV 10 36 Intake, Oral 480 480 Number 1 Bowel Movements Output, Urine 1150 1150 Physical Exam General Appearance: Alert, Oriented X3, Cooperative Skin: No Rashes, No Breakdown Lymphatic: Axillary nl, Cervical nl Cardiovascular: Normal S1, Normal S2 Lungs: b/l basal crackles Assessment/Plan Assessment: This is 81-year-old female with a past medical history of hypertension, hyperlipidemia status post pacemaker placement, paroxysmal atrial fibrillation who presented to the [facility] with worsening shortness of breath and bilateral leg swellings. Assessment 1. Acute on chronic systolic CHF 2. Paroxysmal atrial fibrillation status post pacemaker placemen 3. History of coronary artery disease 4. History of hypertension 5. 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 Acute right shoulder pain which is worsened with overhead movement and abduction. Plan Continue monitoring on telemetry Strict daily weights and in the nose Aggressive IV diuresis today as well, keeping on Bumex 4 mg IV twice a day and then switched to by mouth Lasix tomorrow Leg swelling better than yesterday Basic electrolyte panel for today pending, repeat again tomorrow Statin therapy X-ray of the shoulder reviewed which showed mild and chronic changes. DVT prophylaxis at all times Full code Problem List: 1. Hyperglycemia 2. Dyspnea Pain Ratin Pain Location: right shoulder Pain Goal: Remain pain free Pain Plan: po tyelnol as needed Tomorrow's Labs & Rationales: cbc
[2016-11-30 10:05] VITALS: BP 126/82
--- NOTE | 2016-11-30 12:45 | PN- Att Addend ---
Attending Addendum Attending Brief Note Patient reports improved breathing General Appearance: Alert, No Acute Distress Skin: Grossly normal HEENT: PEERLA Neck: Supple, No JVD Cardiovascular: Irregular rhythm Lungs: Clear to Auscultation, Normal Air Movement Abdomen: Normal Bowel Sounds, Soft, No Tenderness Neurological: Normal Speech, Strength at 5/5 X4 Ext, Cranial Nerves 3-12 NL, Reflexes 2+ Extremities: Pedal edema Assessment She is about 4000 mL negative balance. Currently on Bumex IV as per cardiology recommendations. We will continue to diurese aggressively and replete electrolytes as necessary. Plan Continue IV diuresis Potassium chloride 40 meq once daily Monitor kidney function closely and check I's and O's with daily weights Continue other home medication including Eliquis Place patient on insulin regimen and Accu-Cheks Current Medications Sig/Andrei Start time Last Medication Dose Route Stop Time Status Admin Acetaminophen 650 MG Q6P PRN 11/28 1230 AC PO Acetaminophen/ 1 TAB Q6P PRN 11/28 1230 AC Hydrocodone Bitart PO Albuterol Sulfate 3 ML BID 11/29 1013 AC 11/30 INH 0939 Albuterol Sulfate 2 PUF Q4P PRN 11/28 1230 AC INH Apixaban 5 MG BID 11/28 2200 AC 11/30 PO 0956 Bumetanide 4 MG BID 11/28 220 AC 11/30 IV 0958 Diltiazem HCl 120 MG DAILY 11/29 1000 AC 11/30 PO 0956 Hydromorphone HCl 1 MG Q6P PRN 11/28 1230 AC IV Insulin Aspart 0 TIDAC 11/28 1700 AC 11/29 SC 1801 Insulin Detemir 25 UNITS DAILY 11/29 1000 AC 11/30 SC 0957 Metoprolol Tartrate 25 MG BID 11/28 2200 AC 11/30 PO 0956 Theophylline 150 MG DAILY 11/29 1000 AC 11/30 PO 0956 Laboratory Tests 11/30 0635 Chemistry Sodium (137 - 145 mmol/L) 142 Potassium (3.5 - 5.1 mmol/L) 3.7 Chloride (98 - 107 mmol/L) 95 L Carbon Dioxide (22 - 30 mmol/L) 38 H Anion Gap (5 - 16) 9 BUN (7 - 17 mg/dL) 25 H Creatinine (0.5 - 1.0 mg/dL) 1.2 H Estimated GFR (>60 ml/min) 43 L BUN/Creatinine Ratio (7 - 25 %) 20.8 Vital Signs Date Time Temp Pulse Resp B/P Pulse O2 O2 Flow FiO2 Ox Delivery Rate 11/30 1005 98.2 60 18 126/82 97 Nasal 4.0L Cannula 11/30 0956 60 126/82 11/30 0942 99 Nasal 4.0L Cannula 11/30 0800 Nasal 4.0L Cannula 11/30 0009 98.1 88 24 132/68 91 Nasal 4.0L Cannula 11/30 0000 Nasal 3.0L Cannula 11/29 2046 95 Nasal 3.0L Cannula 11/29 2044 136 134/82 11/29 1600 Nasal 3.0L Cannula 11/29 1555 98.9 96 20 136/78 94 Nasal 3.0L Cannula
[2016-11-30 16:11] VITALS: BP 118/74
--- NOTE | 2016-11-30 19:55 | PN- Cardiology ---
Subjective Subjective: States that her breathing has improved and that she has less lower extremity edema. Denies any chest discomfort, palpitations, etc. Objective Vital Signs and I&Os Vital Signs Date Time Temp Pulse Resp B/P Pulse O2 O2 Flow FiO2 Ox Delivery Rate 11/30 1611 97.8 93 20 118/74 100 Nasal 4.0L Cannula 11/30 1005 98.2 60 18 126/82 97 Nasal 4.0L Cannula 11/30 0956 60 126/82 11/30 0942 99 Nasal 4.0L Cannula 11/30 0800 Nasal 4.0L Cannula 11/30 0009 98.1 88 24 132/68 91 Nasal 4.0L Cannula 11/30 0000 Nasal 3.0L Cannula 11/29 2046 95 Nasal 3.0L Cannula 11/29 2043 136 134/82 Intake & Output 11/30 1600 11/30 0800 11/30 0000 11/29 1600 11/29 0800 11/29 0000 Intake Total 626 200 490 516 440 Output Total 561 256 6018 7896 673 9742 Balance 376 -450 -660 -634 -800 -1260 Intake, IV 26 0 10 36 Intake, Oral 600 200 480 480 440 Number 1 1 1 Bowel Movements Output, Urine 536 059 1026 3373 197 4221 Patient 227 lb Weight Physical Exam: Well-developed, obese elderly female in no acute distress with nasal oxygen in place. Vital signs: See above. Neck: No JVD, no bruits. Lungs: Decreased breath sounds at the bases otherwise clear. Heart: S1, S2 with grade 2-3/6 systolic murmur. No gallop or rub appreciated. Extremities: 1-2+ bilateral lower extremity edema, lymphedema, mild erythema. Current Medications: Current Medications Sig/Andrei Start time Last Medication Dose Route Stop Time Status Admin Acetaminophen 650 MG Q6P PRN 11/28 1230 AC PO Acetaminophen/ 1 TAB Q6P PRN 11/28 1230 AC Hydrocodone Bitart PO Albuterol Sulfate 3 ML BID 11/29 1013 AC 11/30 INH 0939 Albuterol Sulfate 2 PUF Q4P PRN 11/28 123 AC INH Apixaban 5 MG BID 11/28 2200 AC 11/30 PO 0956 Bumetanide 4 MG BID 11/28 220 AC 11/30 IV 0958 Diltiazem HCl 120 MG DAILY 11/29 1000 AC 11/30 PO 0956 Hydromorphone HCl 1 MG Q6P PRN 11/28 1230 AC IV Insulin Aspart 0 TIDAC 11/28 1700 AC 11/30 SC 1802 Insulin Detemir 25 UNITS DAILY 11/29 1000 AC 11/30 SC 0957 Metoprolol Tartrate 25 MG BID 11/28 2200 AC 11/30 PO 0956 Theophylline 150 MG DAILY 11/29 1000 AC 11/30 PO 0956 Results Last 48 Hrs of Labs/Mics: Laboratory Tests 11/30/16 0635: Anion Gap 9, Estimated GFR 43 L, BUN/Creatinine Ratio 20.8 11/29/16 0700: Anion Gap 9, Estimated GFR 43 L, BUN/Creatinine Ratio 24.2, Theophylline 3.8 L 11/29/16 0110: Troponin I 0.06 11/28/16 220: Troponin I Cancelled Assessment/Plan Assessment/Plan Mrs. Han has at least moderate range mitral stenosis of her bioprosthesis with associated right heart failure and is improving following diuresis with IV bumetanide 4 mg twice daily. Her creatinine is stable and her BUN continues to improve. Recommendations: * Switch from IV bumetanide 4 mg twice daily to by mouth bumetanide 4 mg twice daily after her potassium is repleted and her magnesium is rechecked and repleted as needed. * Follow-up her BUN/creatinine, potassium, magnesium etc. * Increase activity in anticipation of discharge. * As she has chronic lymphedema, care must be taken to avoid overdiuresis. Continue telemetry? Yes
[2016-11-30 23:21] VITALS: BP 140/92
[2016-12-01 08:15] VITALS: BP 120/78
--- NOTE | 2016-12-01 08:15 | PN- Housestaff ---
Subjective Follow-up For: CHF Tele-Events Since Last Visit: A fib 84-101 Subjective: Pt seen this morning, she was comfortably eating her breakfast on the chair. She had no complains and reports feeling better. She refused to be examined while she was eating. I came back after she was done eating. Her lower extremity edema improved. Lungs clear. Pt will remain on bumex today for diuresis. kdur 40 daily started. Review of Systems Constitutional: Reports: see HPI. Objective Last 24 Hrs of Vital Signs/I&O Vital Signs Date Time Temp Pulse Resp B/P Pulse O2 O2 Flow FiO2 Ox Delivery Rate 12/01 1030 96 Nasal 4.0L Cannula 12/01 0956 78 120/78 12/01 0815 98.1 78 24 120/78 98 Nasal 4.0L Cannula 12/01 0800 Nasal 4.0L Cannula 12/01 0000 Nasal 4.0L Cannula 11/30 2321 98.3 97 24 140/92 93 Nasal 4.0L Cannula 11/30 2121 111 11/30 1611 97.8 93 20 118/74 100 Nasal 4.0L Cannula Intake & Output 12/01 1600 12/01 0800 12/01 0000 Intake Total 250 620 Output Total 600 450 Balance -350 170 Intake, IV 10 20 Intake, Oral 240 600 Number 1 Bowel Movements Output, Urine 600 450 Physical Exam General Appearance: Alert, Oriented X3, Cooperative, No Acute Distress Skin: No Significant Lesion HEENT: Atraumatic Cardiovascular: Normal S1, Normal S2, irregular rate Lungs: Clear to Auscultation, Normal Air Movement Abdomen: Normal Bowel Sounds, Soft, No Tenderness Extremities: edema improved Current Medications: Current Medications Sig/Andrei Start time Last Medication Dose Route Stop Time Status Admin Acetaminophen 650 MG Q6P PRN 11/28 1230 AC PO Acetaminophen/ 1 TAB Q6P PRN 11/28 1230 AC Hydrocodone Bitart PO Albuterol Sulfate 3 ML BID 11/29 1013 AC 12/01 INH 1028 Albuterol Sulfate 2 PUF Q4P PRN 11/28 1230 AC INH Apixaban 5 MG BID 11/28 2200 AC 12/01 PO 0956 Bumetanide 4 MG BID 11/28 2199 AC 12/01 IV 0955 Diltiazem HCl 120 MG DAILY 11/29 1000 AC 12/01 PO 0956 Hydromorphone HCl 1 MG Q6P PRN 11/28 1230 AC IV Insulin Aspart 0 TIDAC 11/28 1700 AC 12/01 SC 0956 Insulin Detemir 25 UNITS DAILY 11/29 1000 AC 12/01 SC 0956 Metoprolol Tartrate 25 MG BID 11/28 2200 AC 12/01 PO 0956 Potassium Chloride 40 MEQ DAILY 12/01 1245 AC PO Theophylline 150 MG DAILY 11/29 1000 AC 12/01 PO 0956 Last 24 Hrs of Lab/Arturo Results Last 24 Hrs of Labs/Mics: Laboratory Tests 12/01/16 0714: Anion Gap 6, Estimated GFR 43 L, BUN/Creatinine Ratio 24.2 Assessment/Plan Assessment: This is 81-year-old female with a past medical history of hypertension, hyperlipidemia status post pacemaker placement, paroxysmal atrial fibrillation who presented to the [facility] with worsening shortness of breath and bilateral leg swellings. Assessment 1. Acute on chronic systolic CHF 2. Paroxysmal atrial fibrillation status post pacemaker placemen 3. History of coronary artery disease 4. History of hypertension 5. 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 Acute right shoulder pain which is worsened with overhead movement and abduction. Plan Continue monitoring on telemetry Strict daily weights and in the nose Aggressive IV diuresis today as well, keeping on Bumex 4 mg IV twice a day kdur 40 daily started Leg swelling better than yesterday Statin therapy X-ray of the shoulder reviewed which showed mild and chronic changes. DVT prophylaxis at all times Full code Problem List: 1. Acute on chronic congestive heart failure Pain Ratin Pain Location: none Pain Goal: Remain pain free Pain Plan: none Tomorrow's Labs & Rationales: bep for hypokalemia DVT/Prophylaxis: mechanical, pharmacological
--- NOTE | 2016-12-01 12:00 | PN- Att Addend ---
Attending Addendum Attending Brief Note Patient reports improved breathing General Appearance: Alert, No Acute Distress Skin: Grossly normal HEENT: PEERLA Neck: Supple, No JVD Cardiovascular: Irregular rhythm Lungs: Clear to Auscultation, Normal Air Movement Abdomen: Normal Bowel Sounds, Soft, No Tenderness Neurological: Normal Speech, Strength at 5/5 X4 Ext, Cranial Nerves 3-12 NL, Reflexes 2+ Extremities: Pedal edema Assessment She is about 4000 mL negative balance. Currently on Bumex IV as per cardiology recommendations. We will continue to diurese aggressively and replete electrolytes as necessary. Plan Continue IV diuresis Potassium chloride 40 meq once daily Monitor kidney function closely and check I's and O's with daily weights Continue other home medication including Eliquis Place patient on insulin regimen and Accu-Cheks Current Medications Sig/Andrei Start time Last Medication Dose Route Stop Time Status Admin Acetaminophen 650 MG Q6P PRN 11/28 1230 AC PO Acetaminophen/ 1 TAB Q6P PRN 11/28 1230 AC Hydrocodone Bitart PO Albuterol Sulfate 3 ML BID 11/29 1013 AC 12/01 INH 1028 Albuterol Sulfate 2 PUF Q4P PRN 11/28 1230 AC INH Apixaban 5 MG BID 11/28 2200 AC 12/01 PO 0956 Bumetanide 4 MG BID 11/28 2200 AC 12/01 IV 0955 Diltiazem HCl 120 MG DAILY 11/29 1000 AC 12/01 PO 0956 Hydromorphone HCl 1 MG Q6P PRN 11/28 1230 AC IV Insulin Aspart 0 TIDAC 11/28 1700 AC 12/01 SC 0956 Insulin Detemir 25 UNITS DAILY 11/29 1000 AC 12/01 SC 0956 Metoprolol Tartrate 25 MG BID 11/28 2200 AC 12/01 PO 0956 Theophylline 150 MG DAILY 11/29 1000 AC 12/01 PO 0956 Laboratory Tests 12/01 0714 Chemistry Sodium (137 - 145 mmol/L) 137 Potassium (3.5 - 5.1 mmol/L) 3.8 Chloride (98 - 107 mmol/L) 94 L Carbon Dioxide (22 - 30 mmol/L) 38 H Anion Gap (5 - 16) 6 BUN (7 - 17 mg/dL) 29 H Creatinine (0.5 - 1.0 mg/dL) 1.2 H Estimated GFR (>60 ml/min) 43 L BUN/Creatinine Ratio (7 - 25 %) 24.2 Vital Signs Date Time Temp Pulse Resp B/P Pulse O2 O2 Flow FiO2 Ox Delivery Rate 12/01 1030 96 Nasal 4.0L Cannula 12/01 0956 78 120/78 12/01 0815 98.1 78 24 120/78 98 Nasal 4.0L Cannula 12/01 0800 Nasal 4.0L Cannula 12/01 0000 Nasal 4.0L Cannula 11/30 2321 98.3 97 24 140/92 93 Nasal 4.0L Cannula 11/30 2121 111 11/30 1611 97.8 93 20 118/74 100 Nasal 4.0L Cannula
[2016-12-01 17:21] VITALS: BP 120/68
--- NOTE | 2016-12-01 18:11 | PN- Cardiology ---
Subjective Subjective: Continues to feel improved as far as her breathing and lower extremity edema are concerned. Thinks she is almost to her baseline. Denies any chest discomfort or palpitations. Objective Vital Signs and I&Os Vital Signs Date Time Temp Pulse Resp B/P Pulse O2 O2 Flow FiO2 Ox Delivery Rate 12/01 1721 97.2 79 23 120/68 92 Nasal 4.0L Cannula 12/01 1030 96 Nasal 4.0L Cannula 12/01 0956 78 120/78 12/01 0815 98.1 78 24 120/78 98 Nasal 4.0L Cannula 12/01 0800 Nasal 4.0L Cannula 12/01 0000 Nasal 4.0L Cannula 11/30 2321 98.3 97 24 140/92 93 Nasal 4.0L Cannula 11/30 2121 111 Intake & Output 12/01 1600 12/01 0800 12/01 0000 11/30 1600 11/30 0800 11/30 0000 Intake Total 746 250 620 626 200 490 Output Total 650 600 450 751 282 3244 Balance 96 -350 170 376 -450 -660 Intake, IV 26 10 20 26 0 10 Intake, Oral 720 240 600 600 200 480 Number 1 1 Bowel Movements Output, Urine 650 600 450 016 455 0537 Physical Exam: Well-developed, obese elderly female in no acute distress with nasal oxygen in place. Vital signs: See above. Neck: No JVD, no bruits. Lungs: Decreased breath sounds at the bases otherwise clear. Heart: S1, S2 with grade 2-3/6 systolic murmur. No gallop or rub appreciated. Extremities: 1-2+ bilateral lower extremity edema, lymphedema, mild erythema. Assessment/Plan Assessment/Plan Mrs. Han has at least moderate range mitral stenosis of her bioprosthesis with associated right heart failure and is improving following diuresis with IV bumetanide 4 mg twice daily. Her creatinine is stable, but her BUN has increased slightly. Recommendations: * As recommended yesterday (11/30/2016), would switch from IV bumetanide 4 mg twice daily to by mouth bumetanide 4 mg twice daily after her potassium is repleted and her magnesium is rechecked and repleted as needed. * Follow-up her BUN/creatinine, potassium, magnesium etc. * Increase activity in anticipation of discharge. * As she has chronic lymphedema, care must be taken to avoid overdiuresis. Continue telemetry? Yes
[2016-12-02 00:51] VITALS: BP 148/80
--- NOTE | 2016-12-02 07:27 | PN- Housestaff ---
Subjective Follow-up For: fLUID OVERLOAD AND chf Subjective: Patient is mildly awake. Not in any acute distress. Currently requiring 4 L of oxygen via nasal cannula Review of Systems Constitutional: Reports: see HPI. Objective Last 24 Hrs of Vital Signs/I&O Vital Signs Date Time Temp Pulse Resp B/P Pulse O2 O2 Flow FiO2 Ox Delivery Rate 12/02 0051 98.1 61 50 148/80 92 Nasal 4.0L Cannula 12/02 0000 95 Nasal 4.0L Cannula 12/01 1940 92 Nasal 4.0L Cannula 12/01 1721 97.2 79 23 120/68 92 Nasal 4.0L Cannula 12/01 1030 96 Nasal 4.0L Cannula 12/01 0956 78 120/78 12/01 0815 98.1 78 24 120/78 98 Nasal 4.0L Cannula Intake & Output 12/02 1600 12/02 0800 12/02 0000 Intake Total 650 380 Output Total 900 Balance -250 380 Intake, Oral 650 380 Output, Urine 900 Physical Exam General Appearance: Alert, Oriented X3 Skin: No Rashes, No Breakdown HEENT: PERRLA, EOMI Neck: No JVD, No thryomegaly Lymphatic: Cervical nl Cardiovascular: Normal S1, Normal S2 Assessment/Plan Assessment: This is 81-year-old female with a past medical history of hypertension, hyperlipidemia status post pacemaker placement, paroxysmal atrial fibrillation who presented to the [facility] with worsening shortness of breath and bilateral leg swellings. Assessment 1. Acute on chronic systolic CHF 2. Paroxysmal atrial fibrillation status post pacemaker placemen 3. History of coronary artery disease 4. History of hypertension 5. 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 Acute right shoulder pain which is worsened with overhead movement and abduction. Plan Continue monitoring on telemetry Diuresed almost 1.5 L Continue with by mouth Bumex . The patient can be discharged by mouth twice a day kdur 40 daily started Leg swelling better than yesterday Statin therapy X-ray of the shoulder reviewed which showed mild and chronic changes. DVT prophylaxis at all times Full code Problem List: 1. Hyperglycemia 2. Dyspnea Pain Ratin Pain Location: none Pain Goal: Remain pain free Pain Plan: po tylenol asneeded Tomorrow's Labs & Rationales: bep
[2016-12-02] MEDS ORDERED: BUMETANIDE1 M1 PO (08:23)
--- NOTE | 2016-12-02 08:25 | Patient Discharge Instructions ---
Discharge Instructions General Discharge Information You were seen/treated for: shortness of breath Special Instructions: please f/u with your pcp in1 week PLEASE F/U WITH dR TRAMMELL IN1 WEEK Acute Coronary Syndrome Inclusion Criteria At DC or during hospital stay patient has or had the following: ACS DIAGNOSIS No Discharge Core Measures Meds if any: Prescribed or Continued at Discharge Meds if any: NOT Prescribed or Continued at Discharge Congestive Heart Failure Inclusion Criteria At DC or during hospital stay patient has or had the following: CHF DIAGNOSIS Yes Discharge Core Measures Meds if any: Prescribed or Continued at Discharge DEEPA/ARB for EF <40% Yes Meds if any: NOT Prescribed or Continued at Discharge Cerebrovascular accident Inclusion Criteria At DC or during hospital stay patient has or had the following: CVA/TIA Diagnosis No Discharge Core Measures Meds if any: Prescribed or Continued at Discharge Meds if any: NOT Prescribed or Continued at Discharge Venous thromboembolism Inclusion Criteria VTE Diagnosis No VTE Type NONE VTE Confirmed by (Test) NONE Discharge Core Measures - Per Current guidelines, there needs to be overlap - treatment for the first 5 days of Warfarin therapy. - If discharged on Warfarin prior to 5 days of - overlap therapy, the patient will need to be - assessed for post discharge needs including - *Post discharge parental anticoagulation - *Warfarin and/or parental anticoagulation education - *Follow up date to check INR post discharge At least 5 days overlap therapy as Inpatient No Meds if any: Prescribed or Continued at Discharge Note: Overlap Therapy is Warfarin and Anticoagulant Meds if any: NOT Prescribed or Continued at Discharge
[2016-12-02 08:35] VITALS: BP 136/74
--- NOTE | 2016-12-02 09:00 | PN- Att Addend ---
Attending Addendum Attending Brief Note Patient reports improved breathing General Appearance: Alert, No Acute Distress Skin: Grossly normal HEENT: PEERLA Neck: Supple, No JVD Cardiovascular: Irregular rhythm Lungs: Clear to Auscultation, Normal Air Movement Abdomen: Normal Bowel Sounds, Soft, No Tenderness Neurological: Normal Speech, Strength at 5/5 X4 Ext, Cranial Nerves 3-12 NL, Reflexes 2+ Extremities: Pedal edema Assessment She is about 5000 mL negative balance. Currently on oral Bumex. We'll discharge patient home. Plan Continue current dose Bumex Potassium chloride 40 meq once daily Stable for discharge home on current meds Current Medications Sig/Andrei Start time Last Medication Dose Route Stop Time Status Admin Acetaminophen 650 MG Q6P PRN 11/28 1230 AC PO Acetaminophen/ 1 TAB Q6P PRN 11/28 1230 AC Hydrocodone Bitart PO Albuterol Sulfate 3 ML BID 11/29 1013 AC 12/02 INH 0851 Albuterol Sulfate 2 PUF Q4P PRN 11/28 1230 AC INH Apixaban 5 MG BID 11/28 2200 AC 12/01 PO 2028 Bumetanide 4 MG BID 12/01 2200 AC 12/01 PO 2028 Bumetanide 4 MG BID 11/28 2200 DC 12/01 IV 0955 Diltiazem HCl 120 MG DAILY 11/29 1000 AC 12/01 PO 0956 Hydromorphone HCl 1 MG Q6P PRN 11/28 1230 AC IV Insulin Aspart 0 TIDAC 11/28 1700 AC 12/02 SC 0840 Insulin Detemir 25 UNITS DAILY 11/29 1000 AC 12/01 SC 0956 Metoprolol Tartrate 25 MG BID 11/28 2200 AC 12/01 PO 8 Potassium Chloride 40 MEQ DAILY 12/01 1245 AC 12/01 PO 1415 Theophylline 150 MG DAILY 11/29 1000 AC 12/01 PO 0956 Laboratory Tests 12/02 0700 Chemistry Sodium (137 - 145 mmol/L) 138 Potassium (3.5 - 5.1 mmol/L) 4.0 Chloride (98 - 107 mmol/L) 95 L Carbon Dioxide (22 - 30 mmol/L) 37 H Anion Gap (5 - 16) 6 BUN (7 - 17 mg/dL) 29 H Creatinine (0.5 - 1.0 mg/dL) 1.2 H Estimated GFR (>60 ml/min) 43 L BUN/Creatinine Ratio (7 - 25 %) 24.2 Magnesium (1.6 - 2.3 mg/dL) 2.0 Vital Signs Date Time Temp Pulse Resp B/P Pulse O2 O2 Flow FiO2 Ox Delivery Rate 12/02 0857 95 Nasal 4.0L Cannula 12/02 0835 97.6 110 40 136/74 90 Nasal 4.0L Cannula 12/02 0800 Nasal 4.0L Cannula 12/02 0051 98.1 61 50 148/80 92 Nasal 4.0L Cannula 12/02 0000 95 Nasal 4.0L Cannula 12/01 1940 92 Nasal 4.0L Cannula 12/01 1721 97.2 79 23 120/68 92 Nasal 4.0L Cannula 12/01 1030 96 Nasal 4.0L Cannula 12/01 0956 78 120/78
--- NOTE | 2016-12-02 09:49 | PN- Cardiology ---
Subjective Subjective: * Breathing is improved to baseline. * creatinine is 1.2 Objective Vital Signs and I&Os Vital Signs Date Time Temp Pulse Resp B/P Pulse O2 O2 Flow FiO2 Ox Delivery Rate 12/02 0857 95 Nasal 4.0L Cannula 12/02 0835 97.6 110 40 136/74 90 Nasal 4.0L Cannula 12/02 0800 Nasal 4.0L Cannula 12/02 0051 98.1 61 50 148/80 92 Nasal 4.0L Cannula 12/02 0000 95 Nasal 4.0L Cannula 12/01 1940 92 Nasal 4.0L Cannula 12/01 1721 97.2 79 23 120/68 92 Nasal 4.0L Cannula 12/01 1030 96 Nasal 4.0L Cannula 12/01 0956 78 120/78 Intake & Output 12/02 1600 12/02 0800 12/02 0000 12/01 1600 12/01 0800 12/01 0000 Intake Total 650 380 746 250 620 Output Total 900 650 600 450 Balance -250 380 96 -350 170 Intake, IV 26 10 20 Intake, Oral 650 380 720 240 600 Number 1 Bowel Movements Output, Urine 900 650 600 450 Physical Exam: General: WD/ obese female in NAD; alert and oriented x 3 Neck: no JVD, no carotid bruit Heart: RRR with 3/6 systolic murmur Lungs: no crackles or wheezing EXtremtieis: 1+ leg edema bilaterally superimposed on chronic lymphedema Assessment/Plan Assessment/Plan * Continue Bumex 4mg PO BID. * Stable for discharge from a cardiac standpoint. Continue telemetry? No
[2016-12-02 09:52] VITALS: BP 136/74
--- NOTE | 2016-12-02 13:15 | Discharge Summary ---
Visit Information Visit Dates Admission Date: 11/28/16 Discharge Date: 12/02/16 Hospital Course Course Attending Physician: EM PONCE MD Primary Care Physician: EM PONCE MD Hospital Course: A 81-year-old female with a past medical history of hypertension, hyperlipidemia , COPD on 2 L, oxygen, paroxysmal atrial fibrillation(currently on Apixaban), insulin-dependent diabetes mellitus, history of mitral valve replacement with bioprosthetic valve years back, and at that time she underwent a maze procedure with ligation of the left atrial appendage status post permanent pacemaker implantation for symptomatic bradycardia who presented to the [facility] emergency department for bilateral increased leg swelling for the last 3 days. The patient has noticed that she has gained weight and has been feeling tired and has been having difficulty ambulation. Vital signs at the time of admission shows Blood pressure of 128/56, respiration rate of 84, temperature of 98.4, saturation of 94% on 3 L of oxygen EKG showed normal sinus rhythm Chest x-ray shows Cardiomegaly, pulmonary vascular congestion and probable mild interstitial edema. Also, pulmonary arteries are chronically enlarged, as may be seen in pulmonary arterial hypertension. Patient last echocardiogram does show that(08/05/2016) Normal left ventricular size with mild left ventricular hypertrophy. Normal systolic function with no obvious regional wall motion abnormalities. The ejection fraction is visually estimated at 70%. Labs shows normal WBC and hemoglobin and hematocrit of 8, creatinine 1.2, negative troponin of 0.06, elevated proBNP of greater than 4000 Hospital course The patient was initially admitted to general medicine floor and was treated in the hospital for the following problems 1. Fluid overload 2. Bilateral leg swelling 3. History of atrial fibrillation 4. History of diabetes mellitus 5. History of COPD on 2 L of oxygen at baseline 6. History of bioprosthetic valve replacement, mitral valve The patient was admitted to telemetry floor and was monitored on the telemetry. The patient remained in normal sinus rhythm with paroxysmal atrial fibrillation in between. The patient had normal ventricular response. The patient was initially transfixed out with on IV Bumex 4 mg twice a day for aggressive IV diuresis for which she responded well. She was ultimately transitioned to by mouth Bumex. At the time of discharge we change the dose of Bumex to 4 mg by mouth twice a day. The patient was instructed to keep on taking the potassium supplements. The patient would follow-up with her spool cleaner in 1 week of discharge. Allergies: Coded Allergies: Penicillins (Mild, RASH 01/24/16) TOLERATES CEPHALOSPORINS Pertinent Lab Results: Laboratory Tests 12/02 12/01 11/30 0700 0714 0635 Chemistry Sodium (137 - 145 mmol/L) 138 137 142 Potassium (3.5 - 5.1 mmol/L) 4.0 3.8 3.7 Chloride (98 - 107 mmol/L) 95 L 94 L 95 L Carbon Dioxide (22 - 30 mmol/L) 37 H 38 H 38 H Anion Gap (5 - 16) 6 6 9 BUN (7 - 17 mg/dL) 29 H 29 H 25 H Creatinine (0.5 - 1.0 mg/dL) 1.2 H 1.2 H 1.2 H Estimated GFR (>60 ml/min) 43 L 43 L 43 L BUN/Creatinine Ratio (7 - 25 %) 24.2 24.2 20.8 Magnesium (1.6 - 2.3 mg/dL) 2.0 Disposition Summary Disposition Principal Diagnosis: fLUID OVERLOAD Additional Diagnosis: History of paroxysmal or defibrillation h/O bioprosthetic valve replacement History of insulin-dependent diabetes mellitus Discharge Disposition: home health services Discharge Instructions General Discharge Information Code Status: Full Code Patient's Diet: As tolerated Patient's Activity: As tolerated Follow-Up Instructions/Appts: Follow-up with your primary care physician in one week Follow-up with the spool cleaner in one week Medications at Discharge Discharge Medications: Stop taking the following medications: Bumetanide (Bumetanide) 2 MG TABLET ORAL TWICE DAILY Qty = 90 Continue taking these medications: Glimepiride (Amaryl) 2 MG TABLET 1 Tablet ORAL TWICE DAILY Comments: NOT GIVEN IN HOSPITAL Apixaban (Eliquis) 5 MG TABLET 1 Tablet ORAL TWICE DAILY Qty = 60 Comments: Last Taken: 12/02/16 Time: 1000AM Insulin Glargine,Hum.rec.anlog (Brii Amado) 300 UNIT/1 ML INSULN.PEN 25 Units Inject into fatty tissue DAILY Qty = 5 Comments: NOT GIVEN IN HOSPITAL. PT RECEIVED LEVEMIR 25 UNITS Metoprolol Tartrate (Metoprolol Tartrate) 25 MG TABLET 25 Milligram ORAL TWICE DAILY Days = 30 Comments: Last Taken: 12/02/16 Time: 1000 AM Diltiazem Cd (Diltiazem ER) 120 MG CAP.ER.DEG 120 Milligram ORAL DAILY Days = 30 Comments: Last Taken: 12/02/16 Time: 1000AM Albuterol Sulfate (Albuterol Sulfate) 2.5 MG/3 ML VIAL.NEB 3 Milliliters Inhale through mouth TWICE DAILY as needed for breathing Days = 30 Comments: Last Taken: 12/02/16 Time: 9 AM Albuterol Sulfate (Proventil Hfa) 6.7 GM HFA.AER.AD 2 Puff Inhale through mouth EVERY 4 HOURS NEEDED Qty = 1 Instructions: USE THIS IF YOU CANNOT GET THE NEBULIZER MACHINE Comments: NOT GIVEN IN HOSPITAL Ferrous Sulfate (Ferrous Sulfate) 325 MG TABLET 1 Tablet ORAL TWICE DAILY Qty = 60 Comments: NOT GIVEN IN HOSPITAL. Insulin Lispro (Humalog Kwikpen U-100) 100 UNIT/1 ML INSULN.PEN Units Inject into fatty tissue 3 TIMES DAILY BEFORE MEALS Qty = 15 Instructions: BEFORE MEALS Blood Insulin Sugar Units 151-200 1 201-250 2 251-300 3 301-350 4 351-400 5 >400 6 Call Doctor Comments: NOT GIVEN IN HOSPITAL. PT RECEIVED NOVOLOG SLIDING SCALE Theophylline Anhydrous (Theophylline Anhydrous) 300 MG TAB.ER.12H 0.5 Tablet ORAL DAILY Qty = 30 Comments: Last Taken: 12/02/16 Time:10AM Losartan Potassium (Losartan Potassium) 50 MG TABLET 1 Tablet ORAL DAILY Qty = 30 Comments: NOT GIVEN IN HOSPITAL Potassium Chloride (Potassium Chloride) 20 MEQ TAB.ER.PRT 1 Tablet ORAL DAILY Qty = 20 Comments: Last Taken: 12/01/16 Time: 1PM Start taking the following new medications: Bumetanide (Bumetanide) 1 MG TABLET 4 Milligram ORAL TWICE DAILY Qty = 30 No Refills Comments: Last Taken: 12/02/16 Time: 10AM Copies To: [facility]; VALERI HENRY PhD,[place]
--- NOTE | 2016-12-02 13:32 | PN- Pulmonary ---
Subjective HPI/Critical Care Issues: Breathing is improved to baseline. * creatinine is 1.2 Objective Current Medications: Current Medications Sig/Andrei Start time Last Medication Dose Route Stop Time Status Admin Acetaminophen 650 MG Q6P PRN 11/28 1230 AC PO Acetaminophen/ 1 TAB Q6P PRN 11/28 1230 AC Hydrocodone Bitart PO Albuterol Sulfate 3 ML Q4P PRN 12/02 1045 AC INH Albuterol Sulfate 3 ML BID 11/29 1013 DC 12/02 INH 0851 Albuterol Sulfate 2 PUF Q4P PRN 11/28 1230 AC INH Apixaban 5 MG BID 11/28 2200 AC 12/02 PO 0952 Bumetanide 4 MG BID 12/01 2200 AC 12/02 PO 0951 Bumetanide 4 MG BID 11/28 2200 DC 12/01 IV 0955 Diltiazem HCl 120 MG DAILY 11/29 1000 AC 12/02 PO 0952 Hydromorphone HCl 1 MG Q6P PRN 11/28 1230 AC IV Insulin Aspart 0 TIDAC 11/28 1700 AC 12/02 SC 0840 Insulin Detemir 25 UNITS DAILY 11/29 1000 AC 12/02 SC 0952 Metoprolol Tartrate 25 MG BID 11/28 2200 AC 12/02 PO 0952 Potassium Chloride 40 MEQ DAILY 12/01 1245 AC 12/01 PO 1415 Theophylline 150 MG DAILY 11/29 1000 AC 12/02 PO 0952 Vital Signs & I&O Last 24 Hrs of Vitals and I&O: Vital Signs Date Time Temp Pulse Resp B/P Pulse O2 O2 Flow FiO2 Ox Delivery Rate 12/02 0952 110 136/74 12/02 0857 95 Nasal 4.0L Cannula 12/02 0835 97.6 110 40 136/74 90 Nasal 4.0L Cannula 12/02 0800 Nasal 4.0L Cannula 12/02 0051 98.1 61 50 148/80 92 Nasal 4.0L Cannula 12/02 0000 95 Nasal 4.0L Cannula 12/01 1940 92 Nasal 4.0L Cannula 12/01 1721 97.2 79 23 120/68 92 Nasal 4.0L Cannula Intake & Output 12/02 1600 12/02 0800 12/02 0000 Intake Total 480 650 380 Output Total 400 900 Balance 80 -250 380 Intake, Oral 480 650 380 Output, Urine 400 900 Impression/Plan Impression/Plan Impression/Plan: Chest x-ray shows Cardiomegaly, pulmonary vascular congestion and probable mild interstitial edema. Also, pulmonary arteries are chronically enlarged, as may be seen in pulmonary arterial hypertension. Patient last echocardiogram does show that(08/05/2016) Normal left ventricular size with mild left ventricular hypertrophy. Normal systolic function with no obvious regional wall motion abnormalities. The ejection fraction is visually estimated at 70%. Labs shows normal WBC and hemoglobin and hematocrit of 8, creatinine 1.2, negative troponin of 0.06, elevated proBNP of greater than 400 Physical Exam General Appearance Alert, Oriented X3, Cooperative Skin No Rashes, No Breakdown HEENT Atraumatic, PERRLA Neck Supple, No JVD, No thryomegaly Lymphatic Axillary nl, Cervical nl Cardiovascular Regular Rate, Normal S1, Normal S2 Lungs bilateral decreased airway entry and bilateral crackles Abdomen Normal Bowel Sounds, Soft, No Tenderness Neurological Normal Speech, Strength at 5/5 X4 Ext, Normal Tone Extremities bilateral 3+ leg edema Vascular Normal Pulses, Pulses Symmetrical IMPRESSION 81-year-old female with history of atrial fibrillation and atrial flutter, presenting with shortness of breath, orthopnea, and lower some edema. 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 No sig copde * Significant valvular heart disease (previous mvr) with mitral stenosis and probable aortic stenosis, * Chronic respiratory failure, per pts wishes she does not want cpap * Hypertension * Acute on chronic kidney disease stage III * Type 2 diabetes * Small airway disease with recurrent bronchiolitis * Previous history of small lung nodules stable REC COnt Diuresis with bumex per cardio Nebs prn if she is wheezing with duoneb COnt current care Increase activity slowly Ok to dc
== END 2016-12-02 13:55 | disposition home health service (06) | DRG 291 ==
LOC: ENRESERVTM → ENRESERVDT → ERH 09:33 → 1NO 11:54 → ERHI 11:54 → ENPENDDIS 11:54 → 1NO 13:20
PROVIDERS: Physician Assistant; ADMIT Internal Medicine
DX: I13.0 Hypertensive heart and chronic kidney disease with heart failure and stage 1 through stage 4 chronic kidney disease, or unspecified chronic kidney disease (principal); I50.33 Acute on chronic diastolic (congestive) heart failure; J44.9 Chronic obstructive pulmonary disease, unspecified; I48.0 Paroxysmal atrial fibrillation; N18.3 Chronic kidney disease, stage 3 (moderate); Z79.01 Long term (current) use of anticoagulants; E66.9 Obesity, unspecified; Z68.38 Body mass index [BMI] 38.0-38.9, adult; I89.0 Lymphedema, not elsewhere classified; E78.5 Hyperlipidemia, unspecified; E11.9 Type 2 diabetes mellitus without complications; Z95.2 Presence of prosthetic heart valve; Z95.0 Presence of cardiac pacemaker
CPT/HCPCS: 1NSP; 36415; 73030-RT; 82436; 93005; 93010; 96374; 97116-GO; 97161-GP; J1940; J3490

== ENCOUNTER 2017-01-18 10:03 | Inpatient (IN) | payer OTHER, MEDICARE ==
[~2017-01-18] VITALS: Ht 162.6 cm; Wt 98.9 kg
[~2017-01-18 10:03] MED LIST changes: +BUMETANIDE2 M1 PO
--- NOTE | 2017-01-18 10:14 | ED DYSPNEA/ASTHMA COMPLAINT ---
History of Present Illness General Chief Complaint: Dyspnea (COPD, CHF, Other) Stated Complaint: SOB Source: patient, family, old records Exam Limitations: no limitations Vital Signs & Intake/Output Vital Signs & Intake/Output Vital Signs Date Time Temp Pulse Resp B/P Pulse O2 O2 Flow FiO2 Ox Delivery Rate 01/18 1253 98.6 123 18 134/73 01/18 1250 98.6 123 18 134/73 93 Nasal 3.0L Cannula 01/18 1148 98.4 123 21 123/84 90 Nasal 3.0L Cannula 01/18 1040 89 Nasal 3.0L Cannula 01/18 1033 97.0 95 21 115/66 90 Nasal 3.0L Cannula Allergies Coded Allergies: Penicillins (Mild, RASH 01/24/16) TOLERATES CEPHALOSPORINS Reconcile Medications Albuterol Sulfate 2.5 MG/3 ML VIAL.NEB 3 ML INH BID PRN breathing Albuterol Sulfate (Proventil Hfa) 6.7 GM HFA.AER.AD 2 PUF INH Q4P BREATHING USE THIS IF YOU CANNOT GET THE NEBULIZER MACHINE Apixaban (Eliquis) 5 MG TABLET 1 TAB PO BID BLOOD THINNER (Reported) Bumetanide 1 MG TABLET 4 MG PO BID heart failure Diltiazem Cd (Diltiazem ER) 120 MG CAP.ER.DEG 120 MG PO DAILY AFIB Ferrous Sulfate 325 MG TABLET 1 TAB PO BID SUPPLEMENT (Reported) Glimepiride (Amaryl) 2 MG TABLET 1 TAB PO BID DM (Reported) Insulin Glargine,Hum.rec.anlog (Toujeo Solostar) 300 UNIT/1 ML INSULN.PEN 25 U SC DAILY DIABETES (Reported) Insulin Lispro (Humalog Kwikpen U-100) 100 UNIT/1 ML INSULN.PEN DIABETES ( Reported) BEFORE MEALS Blood Insulin Sugar Units 151-200 1 201-250 2 251-300 3 301-350 4 351-400 5 >400 6 Call Doctor Losartan Potassium 50 MG TABLET 1 TAB PO DAILY high blood pressure Metoprolol Tartrate 25 MG TABLET 25 MG PO BID AFIB Potassium Chloride 20 MEQ TAB.ER.PRT 1 TAB PO DAILY K+ (Reported) Theophylline Anhydrous 300 MG TAB.ER.12H 0.5 TAB PO BID CSA (Reported) Triage Nurses Notes Reviewed? yes HPI: Patient presents with increasing difficulty breathing and dyspnea on exertion over the past 3-4 days. Similar symptoms multiple times in the past with decompensated CHF. Patient has not noticed any weekend. Patient is chronically on home oxygen at 2.5 L which she has had increased to 3 L because of her difficulty breathing. Positive anorexia but no nausea or vomiting. No coughing. Positive orthopnea. No abdominal pain. No coughing. No fevers or chills. Past History Medical History Any Pertinent Medical History? see below for history Neurological: peripheral neuropathy EENT: NONE Cardiovascular: AFIB, CAD, CHF, hypertension, hyperlipidemia, myocardial infarction, MVR (2006) SICK SINUS S/P PACEMAKER 2013 PIG VALVE DVT permanent pacemaker Respiratory: pneumonia Gastrointestinal: GI bleed s/p coil embolization of the hepatic flexure. mitral valve replacement with a #21 Mercado II with ligation of the left atrial appendage porcine valve with removal of left atrial appendage ligation of left atrial appendage Hepatic: NONE Renal: chronic kidney disease Musculoskeletal: KNEE REPLACEMENT 2013 Psychiatric: NONE Endocrine: IDDM Blood Disorders: anemia Cancer(s): breast cancer s/p left lumpectomy for ductal carcinoma in situ SPACE OPERATIONS/Reproductive: NONE Other Medical Hx: appendectomy, cholecystectomy, hernia repair-inguinal (right), hernia repair-ventral, hysterectomy, L BREAST LUMPECTOMY (NO RESTRICTIONS) R KNEE REPLACEMENT left total knee replacement incarcerated hernia repair,AFIB, CAD, CHF, hypertension, hyperlipidemia, myocardial infarction, MVR (2006) SICK SINUS S/P PACEMAKER 2013 PIG VALVE DVT permanent pacemaker, GI bleed s/p coil embolization of the hepatic flexure. mitral valve replacement with a #21 Mercado II with ligation of the left atrial appendage porcine valve with removal of left atrial appendage ligation of left atrial appendage History of MRSA: No History of VRE: No History of CDIFF: No Influenza Vaccine: 08/06/16 Surgical History Surgical History: appendectomy, cholecystectomy, hernia repair-inguinal (right), hernia repair-ventral, hysterectomy, L BREAST LUMPECTOMY (NO RESTRICTIONS) R KNEE REPLACEMENT left total knee replacement incarcerated hernia repair Psychosocial History Who do you live with Son Services at Home Nursing, Oxygen What is your primary language Israeli Tobacco Use: Quit >30 days ago ETOH Use: denies use Illicit Drug Use: denies illicit drug use Family History Family History, If Any: MOTHER Cardiomegaly FATHER FH: ND (myocardial infarction) FH: stroke BROTHER (valvular heart disease). Relation not specified for: FH: premature coronary heart disease FH: stroke Hx Contributory? No Review of Systems Review of Systems Constitutional: Reports: no symptoms. EENTM: Reports: no symptoms. Respiratory: Reports: see HPI, orthopnea, short of breath. Cardiovascular: Reports: no symptoms. GI: Reports: no symptoms. Genitourinary: Reports: no symptoms. Musculoskeletal: Reports: no symptoms. Skin: Reports: no symptoms. Neurological/Psychological: Reports: no symptoms. Hematologic/Endocrine: Reports: no symptoms. Immunologic/Allergic: Reports: no symptoms. All Other Systems: Reviewed and Negative Physical Exam Physical Exam General Appearance: well developed/nourished, alert, awake, anxious, moderate distress Head: atraumatic Eyes: Bilateral: PERRL, EOMI. Ears, Nose, Throat: normal pharynx, normal ENT inspection Neck: normal inspection, supple, full range of motion, NO JVD Respiratory: crackles (BIBASILAR) Cardiovascular: tachycardia, irregularly irregular Gastrointestinal: normal bowel sounds, soft, non-tender, OBESE Extremities: normal inspection, normal capillary refill, normal range of motion, pedal edema Neurologic/Psych: no motor/sensory deficits, awake, alert, oriented x 3, normal mood/affect Skin: intact, normal color, warm/dry Lymphatic: no anterior cervical nany Core Measures ACS in differential dx? Yes Severe Sepsis Present: No Septic Shock Present: No Progress Differential Diagnosis: AMI, CHF, COPD, pneumonia, pneumothorax Plan of Care: Orders Procedure Date/time Status Regular Diet 01/18 D Active OXYGEN SETUP (GEN) 01/18 1320 Active Saline Lock 01/18 1320 Active Misc Message 01/18 1320 Active ED Holding Orders 01/18 1320 Active Vital Signs 01/18 1320 Active Activity/Ambulation 01/18 1320 Active Code Status 01/18 1320 Active Admit to inpatient 01/18 1319 Active Patient Data 01/18 1311 Active Admit to inpatient 01/18 1304 Active Wong, Insertion/Removal/Asses 01/18 1232 Active CULTURE,URINE 01/18 1232 Active ARTERIAL BLOOD GAS (GEN) 01/18 1015 Complete Telemetry/High Speed Printer Operator 01/18 1015 Active URINALYSIS 01/18 1015 Active TROPONIN LEVEL 01/18 1015 Complete PARTIAL THROMBOPLASTIN TIME 01/18 1015 Complete PROTHROMBIN TIME 01/18 1015 Complete COMPREHENSIVE METABOLIC PANEL 01/18 1015 Complete CBC WITHOUT DIFFERENTIAL 01/18 1015 Complete B-TYPE NATRIURETIC PEP (BNP) 01/18 1015 Complete EKG 01/18 1007 Active Laboratory Tests 01/18/17 1029: pH 7.46 H, pCO2 40, pO2 57 L, HCO3 27, ABG O2 Sat (Measured) 89.0 L, Carboxyhemoglobin 1.3 L, O2 Concentration % 3L, O2 Delivery Method N/C, Phlebotomy Draw Site LEFT RADIAL 01/18/17 1021: Anion Gap 14, Estimated GFR 39 L, BUN/Creatinine Ratio 30.0 H, Glucose 180 H, Calcium 9.7, Total Bilirubin 0.7, AST 18, ALT 29, Alkaline Phosphatase 63, Troponin I 0.04, [id number] Pept 3980 H, Total Protein 7.7, Albumin 3.7, Globulin 4.0, Albumin/Globulin Ratio 0.9 L, PT 19.4 H, INR 1.86 H, APTT 31, CBC w Diff NO MAN DIFF REQ, RBC 4.08 L, MCV 93.1, MCH 30.0, RDW 19.6 H, MPV 8.2, Gran % 81.0 H, Lymphocytes % 9.0 L, Monocytes % 7.9, Eosinophils % 1.8, Basophils % 0.3, Absolute Granulocytes 6.5, Absolute Lymphocytes 0.7 L, Absolute Monocytes 0.6, Absolute Eosinophils 0.1, Absolute Basophils 0, PUBS MCHC 32.2 L Microbiology 01/18 1232 URINE ROUT: Urine Culture - ORD Diagnostic Imaging: Viewed by Me: Radiology Read. Discussed w/RAD: Radiology Read. CXR Impression: PATIENT: AMINTA MAK PRESENT AGE : 82 PATIENT ACCOUNT NO: [id number] : 34 LOCATION: [facility] ORDERING PHYSICIAN: ANASTASIA MATHEWS MD SERVICE DATE: 01/18/17 EXAM TYPE: RAD - XRY-PORTABLE CHEST XRAY EXAMINATION: XR PORTABLE CHEST CLINICAL INFORMATION: Chest 11/28/2016. COMPARISON: None TECHNIQUE: Portable AP view of the chest was obtained. FINDINGS: There is mild cardiomegaly with increased pulmonary vascularity and prominent interstitial pattern suggestive of CHF and/or interstitial edema. There are median sternotomy sutures from previous intervention. There are pacer electrode tips in the right atrium and right ventricle. The lungs are expanded and clear. IMPRESSION: Cardiomegaly with CHF and probable interstitial edema. Similar findings were seen on 11/28/2016. No change in dual pacer cardiac electrodes from 11/28/2016. DICTATED BY: CAROLIN MIR MD DATE/TIME DICTATED:01/18/171140 MARSHMALLOW MACHINE OPERATOR:ENRIQUE DATE/TIME TRANSCRIBED:01/18/171140 CONFIDENTIAL, DO NOT COPY WITHOUT APPROPRIATE AUTHORIZATION. <Electronically signed in Other Vendor System> SIGNED BY: CAROLIN MIR MD 01/18/171145 Initial ED EKG: AFIB, nonspecific ST T wave chg Prior EKG: unchanged Rhythm Strip: atrial fibrillation, atrial flutter Departure Departure Disposition: STILL A PATIENT Condition: Guarded Clinical Impression Primary Impression: Pulmonary edema Secondary Impressions: Atrial fibrillation with RVR Referrals: EM PONCE MD (PCP/Family) Departure Forms: Customer Survey General Discharge Information Admission Note Spoke With: LEXII HENRY,JACQUELIN Sun Documentation of Exam: Documentation of any treatments & extenuating circumstances including Concerns Regarding Discharge (functional status, medication knowledge or non-compliance, living conditions, etc.) that warrant an admission rather than observation: [ Patient will require telemetry monitoring and cardiology consultation. IV diuresis. Continue oxygen, serial enzymes] Critical Care Note Critical Care Note Critical Care Time: mins: (45 MIN)
--- NOTE | 2017-01-18 10:15 | NUR ---
PT TO ED WITH FAMILY FOR C/O INCREASING SOB. PT IS O2 DEPENDANT AT 2.5L. H/O CHF. PT NOTED SOB WITH SITTING. DENIES ANY PAIN. PT TAKEN TO ROOM 10 VIA W/C, ASSISTED TO STRETCHER. O2 SATS 88% ON 2.5L, O2 INCREASED TO 3L. DR MATHEWS AT BEDSIDE FOR EVAL.
--- NOTE | 2017-01-18 10:24 | NUR ---
RESP AT BEDSIDE
[2017-01-18 10:45] LABS: ABSOLUTE BASOPHIL COUNT 0 /CUMM (0.0-0.2); ABSOLUTE EOSINOPHIL COUNT 0.1 /CUMM (0.0-0.7); ABSOLUTE GRANULOCYTE CT 6.5 /CUMM (1.4-6.5); ABSOLUTE LYMPH COUNT 0.7 /CUMM (1.2-3.4); ABSOLUTE MONOCYTE COUNT 0.6 /CUMM (0.10-0.60); BASOPHIL % 0.3 % (0.0-2.0); EOSINOPHIL % 1.8 % (0-5); MEAN CORPUSCULAR HGB CONC 32.2 G/DL (33.0-37.0); MEAN CORPUSCULAR VOLUME 93.1 FL (81.0-99.0); MEAN PLATELET VOLUME 8.2 FL (7.4-10.4); PLATELET COUNT 238 /CUMM (130-400); RBC DISTRIBUTION WIDTH 19.6 % (11.5-14.5); RED BLOOD CELL CT 4.08 /CUMM (4.20-5.40)
[2017-01-18 11:23] LABS: PT 19.4 SEC (9.4-12.5); PTT 31 SEC (25-37)
--- NOTE | 2017-01-18 11:29 | NUR ---
PT ASSISTED ONTO BEDSIDE COMMODE WITH ASSISTANCE X2. PT REQUSTING TO SIT FOR SOME TIME, CALL KAUR IN REACH.
--- NOTE | 2017-01-18 11:46 | RADIOLOGY REPORT ---
EXAMINATION: XR PORTABLE CHEST CLINICAL INFORMATION: Chest 11/28/2016. COMPARISON: None TECHNIQUE: Portable AP view of the chest was obtained. FINDINGS: There is mild cardiomegaly with increased pulmonary vascularity and prominent interstitial pattern suggestive of CHF and/or interstitial edema. There are median sternotomy sutures from previous intervention. There are pacer electrode tips in the right atrium and right ventricle. The lungs are expanded and clear. IMPRESSION: Cardiomegaly with CHF and probable interstitial edema. Similar findings were seen on 11/28/2016. No change in dual pacer cardiac electrodes from 11/28/2016.
--- NOTE | 2017-01-18 11:49 | NUR ---
PT URINATED AND HAD SMALL BOWEL MOVMENT, URINE CONTAMINATED WITH STOOL, UNABLE TO SEND SAMPLE TO LAB AT THIS TIME. PT ASSISTED BACK INTO BED WITH ASSIST X2. PT BECAME VERY SHORT OF BREATH WITH MOVEMENT.
--- NOTE | 2017-01-18 12:27 | NUR ---
PT RESTING ON STRETCHER AT THIS TIME, OFFERS NO COMPLAINTS.
--- NOTE | 2017-01-18 12:36 | NUR ---
ATTEMPTED TO PLACE HARTMANN, PER PT "MY PRIMARY DOCTOR SAYS THERE IS NO NEED FOR ME TO HAVE A HARTMANN AT THIS TIME" EXPLAINED THAT WE ARE GIVING HER IV LASIX AND NEED TO MONITOR HER OUTPUT AND EXPLAINED THAT SHE GETS VERY SHORT OF BREATH WITH MOVMENT. PT STILL REFUSING HARTMANN AT THIS TIME.
--- NOTE | 2017-01-18 12:51 | NUR ---
PT MEDICATED WITH IV LASIX AND CARDIZEM PER ORDER AT THIS TIME. HR 120s PRIOR TO CARDIZEM ADMINISTRATION. PT CONTINUES TO DENY PAIN ANYWHERE. SATS REMAINS 90-93% on 3L NC AT THIS TIME. PT AWARE OF PLAN OF ADMISSION. HR NOW 90s ON MONITOR.
--- NOTE | 2017-01-18 13:11 | NUR ---
PT REQUESTING TO SIT AND DANGLE FEET AT THIS TIME. PT PROVIDED WITH RECLINER CHAIR AND ASSISTED X2 INTO CHAIR AT THIS TIME.
--- NOTE | 2017-01-18 13:55 | NUR ---
PT ASSISTED ONTO BEDSIDE COMMODE WITH ASSISTANCE X 2. PT HAD SMALL BOWEL MOVEMENT ABD URINATED APPROX 200CC. URINE CONTAMINATED WITH STOOL SO SPECIMEN COULD NOT BE SENT TO LAB. PT ASSISTED BACK INTO RECLINAR CHAIR. AWARE WAITING FOR BED ASSIGNMENT AT THIS TIME
--- NOTE | 2017-01-18 14:33 | NUR ---
ROOM 171
--- NOTE | 2017-01-18 14:38 | NUR ---
REPORT GIVEN TO JACE.
--- NOTE | 2017-01-18 15:06 | Admission Certification ---
Admission Certification Certification Statement - As attending physician, I certify that at the time of - admission, based on clinical presentation, severity of - symptoms, need for further diagnostic testing and - therapeutic interventions, and risk of adverse outcomes - without in-hospital treatment, in my clinical assessment, - this patient requires an acute hospital stay for a minimum - of two nights or longer. I have also considered psychsocial - factors such as support system, advanced age, financial - issues, cognitive issues, and failed out-patient treatments, - past re-admission history, safety of patient, and lack of - compliance as applicable. Specific rationale supporting this admission is: At that of congestive heart failure with intravenous diuretic.
--- NOTE | 2017-01-18 15:43 | History & Physical ---
OSMIN [place] [place]42: General Information and HPI MD Statement: I have seen and personally examined AMINTA HAN and documented this H&P. The patient is a 82 year old F who presented with a patient stated chief complaint of shortness of breath and leg swelling. Source of Information: patient, family, old records Exam Limitations: no limitations History of Present Illness: Ms. Han is a 82 y/o F with PMHx of mitral stenosis s/p mitral valve replacement, paroxysmal atrial fibrillation on Eliquis and diastolic CHF who presents with worsening shortness of breath and leg swelling x 3 days. Most of the history is obtained from patient's son who is at bedside. Patient has been having progressively worsening shortness of breath for the past 3 days. Shortness of breath is present even at rest on her baseline oxygen requirement of 2.5 L, increased to 3 L with ambulation. Patient has significant orthopnea at baseline and sleeps in a recliner. Patient has also noted increasing leg swelling at this time and her legs have become red and irritated. Patient takes 2 mg of PO Bumex 4 times per day at home, but for the past three days she has been taking an extra 2 mg per day according to her high value associate Dr. Galloway's recommendations. She denies significant weight change. She also denies chest pain, palpitations, fevers, chills, cough or abdominal pain. Of note patient has had multiple admissions to [facility] within the past year for CHF exacerbation. Allergies/Medications Allergies: Coded Allergies: Penicillins (Mild, RASH 01/24/16) TOLERATES CEPHALOSPORINS Home Med list Albuterol Sulfate 2.5 MG/3 ML VIAL.NEB 3 ML INH BID PRN breathing Albuterol Sulfate (Proventil Hfa) 6.7 GM HFA.AER.AD 2 PUF INH Q4P BREATHING USE THIS IF YOU CANNOT GET THE NEBULIZER MACHINE Apixaban (Eliquis) 5 MG TABLET 1 TAB PO BID BLOOD THINNER (Reported) Bumetanide 1 MG TABLET 2 MG PO 4 TIMES/DAY heart failure Diltiazem Cd (Diltiazem ER) 120 MG CAP.ER.DEG 120 MG PO DAILY AFIB Ferrous Sulfate 325 MG TABLET 1 TAB PO BID SUPPLEMENT (Reported) Glimepiride (Amaryl) 2 MG TABLET 1 TAB PO BID DM (Reported) Insulin Glargine,Hum.rec.anlog (Toujeo Solostar) 300 UNIT/1 ML INSULN.PEN 25 U SC DAILY DIABETES (Reported) Insulin Lispro (Humalog Kwikpen U-100) 100 UNIT/1 ML INSULN.PEN DIABETES ( Reported) BEFORE MEALS Blood Insulin Sugar Units 151-200 1 201-250 2 251-300 3 301-350 4 351-400 5 >400 6 Call Doctor Losartan Potassium 50 MG TABLET 1 TAB PO DAILY high blood pressure Metoprolol Tartrate 25 MG TABLET 25 MG PO BID AFIB Potassium Chloride 20 MEQ TAB.ER.PRT 1 TAB PO DAILY K+ (Reported) Theophylline Anhydrous 300 MG TAB.ER.12H 0.5 TAB PO BID CSA (Reported) Past History Travel History Traveled to [place] past 21 day No Medical History Neurological: peripheral neuropathy EENT: NONE Cardiovascular: AFIB, CAD, diastolic CHF, hypertension, hyperlipidemia, myocardial infarction, mitral stenosis Respiratory: pneumonia, small lung nodules, obesity hypoventilation syndrome Gastrointestinal: lower GI bleed, GI bleed Hepatic: NONE Renal: chronic kidney disease Psychiatric: NONE Endocrine: insulin-dependent type 2 diabetes mellitus Blood Disorders: anemia, DVT Cancer(s): breast 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 PASTRY/Reproductive: fibroid History of MRSA: No History of VRE: No History of CDIFF: No Influenza Vaccine: 08/06/16 Surgical History Surgical History: appendectomy, cholecystectomy, hernia repair-inguinal (right), hernia repair-ventral, hysterectomy, knee replacement (left ), lumpectomy (left breast), coil embolization of the hepatic flexure, porcine mitral valve replacement, maze procedure with ligation of the left atrial appendage, incarcerated hernia repair Past Family/Social History Family History Relations & Conditions if any MOTHER Cardiomegaly FATHER FH: WI (myocardial infarction) FH: stroke BROTHER (valvular heart disease). Relation not specified for: FH: stroke No family history of: FH: premature coronary heart disease Psychosocial History Who Do You Live With? self Services at Home: Nursing, Oxygen Primary Language: Maltese Smoking Status: Former Smoker (Quit Smoking >40 Years Ago) ETOH Use: denies use Illicit Drug Use: denies illicit drug use Living Will? yes Functional Ability ADLs Independent: dressing, eating, toileting, bathing. Ambulation: cane, walker IADLs Independent: finances, telephone, medication admin. Needs Assist: shopping, housework, food prep, transportation. Review of Systems Review of Systems Constitutional: Denies: chills, fever. EENTM: Reports: no symptoms. Cardiovascular: Reports: peripheral edema. Denies: chest pain, palpitations. Respiratory: Reports: orthopnea, short of breath. Denies: cough. GI: Denies: abdominal pain, constipation, diarrhea, nausea, vomiting. Genitourinary: Reports: no symptoms. Musculoskeletal: Reports: no symptoms. Skin: Reports: no symptoms. Neurological/Psychological: Reports: no symptoms. Hematologic/Endocrine: Reports: no symptoms. Immunologic/Allergic: Reports: no symptoms. All Other Systems: Reviewed and Negative Exam & Diagnostic Data Last 24 Hrs of Vital Signs/I&O Vital Signs Date Time Temp Pulse Resp B/P Pulse O2 O2 Flow FiO2 Ox Delivery Rate 01/19 0000 Nasal 4.0L Cannula 01/18 2328 98.0 127 22 122/78 92 Nasal Cannula 01/18 2228 Nasal 4.0L Cannula 01/18 2114 133 144/82 01/18 1800 132 129/80 01/18 1603 98.4 134 22 129/80 88 Nasal 3.5L Cannula 01/18 1500 Nasal 3.0L Cannula 01/18 1446 98.6 93 18 135/85 93 Nasal 3.0L Cannula 01/18 1403 98 01/18 1253 98.6 123 18 134/73 01/18 1250 98.6 123 18 134/73 93 Nasal 3.0L Cannula 01/18 1148 98.4 123 21 123/84 90 Nasal 3.0L Cannula 01/18 1040 89 Nasal 3.0L Cannula 01/18 1033 97.0 95 21 115/66 90 Nasal 3.0L Cannula Intake & Output 01/19 0800 01/19 0000 01/18 1600 Intake Total 610 Output Total 1500 101 Balance -890 -101 Intake, IV 10 Intake, Oral 600 Output, Stool 1 Output, Urine 1500 100 Patient 99.79 kg Weight Physical Exam General Appearance Alert, Oriented X3, No Acute Distress HEENT Atraumatic, Mucous Membr. moist/pink Neck Supple Cardiovascular Regular Rate, Normal S1, Normal S2 Lungs Diminished Breath Sounds, Bibasilar Crackles Abdomen Soft, No Tenderness, Positive Bowel Sounds Extremities No Clubbing, No Cyanosis, 3+ Pitting Edema on Bilateral Lower Extremities Last 24 Hrs of Labs/Arturo: Laboratory Tests 01/18/17 1646: Troponin I 0.03 01/18/17 1630: Urine Color YEL, Urine Clarity CLEAR, Urine pH 6.5, Ur Specific Bells 1.010, Urine Protein TRACE H, Urine Ketones NEG, Urine Nitrite NEG, Urine Bilirubin NEG, Urine Urobilinogen 0.2, Ur Leukocyte Esterase NEG, Ur Microscopic SEDIMENT EXAMINED, Urine RBC RARE, Ur Epithelial Cells FEW, Urine Bacteria MANY H, Urine Hemoglobin TRACE-INTACT, Urine Glucose NEG 01/18/17 1029: pH 7.46 H, pCO2 40, pO2 57 L, HCO3 27, ABG O2 Sat (Measured) 89.0 L, Carboxyhemoglobin 1.3 L, O2 Concentration % 3L, O2 Delivery Method N/C, Phlebotomy Draw Site LEFT RADIAL 01/18/17 1021: Anion Gap 14, Estimated GFR 39 L, BUN/Creatinine Ratio 30.0 H, Glucose 180 H, Calcium 9.7, Total Bilirubin 0.7, AST 18, ALT 29, Alkaline Phosphatase 63, Troponin I 0.04, [id number]-D-Zqsmoabrynk Pept 3980 H, Total Protein 7.7, Albumin 3.7, Globulin 4.0, Albumin/Globulin Ratio 0.9 L, PT 19.4 H, INR 1.86 H, APTT 31, CBC w Diff NO MAN DIFF REQ, RBC 4.08 L, MCV 93.1, MCH 30.0, RDW 19.6 H, MPV 8.2, Gran % 81.0 H, Lymphocytes % 9.0 L, Monocytes % 7.9, Eosinophils % 1.8, Basophils % 0.3, Absolute Granulocytes 6.5, Absolute Lymphocytes 0.7 L, Absolute Monocytes 0.6, Absolute Eosinophils 0.1, Absolute Basophils 0, PUBS MCHC 32.2 L Microbiology 01/18 1630 URINE ROUT: Urine Culture - RECD Diagnostic Data EKG Results Atrial fibrillation HR 102 QTc 516 CXR Results Cardiomegaly with CHF and probable interstitial edema. Similar findings were seen on 11/28/2016. No change in dual pacer cardiac electrodes from 11/28/2016. Assessment/Plan Assessment: 82 y/o F with PMHx of mitral stenosis s/p mitral valve replacement, paroxysmal atrial fibrillation on Eliquis and diastolic CHF who presents with shortness of breath and leg swelling secondary to acute on chronic diastolic CHF. #Acute on chronic diastolic CHF: Presented with SOB and leg swelling. Currently on 4 L NC, significantly increased from her baseline of 2.5 L NC. ProBNP 3980. CXR with cardiomegaly and increased interstitial edema. Most recent ECHO in July 2016 with LVEF of 70%. S/p 40 mg of IV Lasix administered in the ED. * Admit to telemetry. * Monitor I/Os and daily weights. * Start Bumex 4 mg IV BID. * TRC and nebs. * Consult cardiology if patient clinically deteriorates. * Serial troponins and EKG to rule out ACS. * Continue prior to admission Losartan 50 mg PO daily. * Provide supplemental oxygen as needed to keep SpO2 > 92%. #Paroxysmal atrial fibrillation: * Continue Eliquis 5 mg PO BID. * Continue prior to admission metoprolol 25 mg PO BID and Diltiazem ER 120 mg PO daily. #Insulin-dependent T2DM: On glimepiride 2 mg PO BID, Glargine 25 units SQ daily and Lispro sliding scale TIDAC. * Hold oral hypoglycemic agents while inpatient. * Continue long-acting insulin Levemir 25 units SQ daily. * Accu-checks and low dose sliding scale Novolog TIDAC. Diet: Consistent Carbohydrate 2 with 2 g Na Restriction DVT PPx: Eliquis and ALPs CODE: FULL As Ranked By This Provider Problem List: 1. Acute on chronic diastolic CHF (congestive heart failure) 2. (HFpEF) heart failure with preserved ejection fraction 3. Insulin dependent type 2 diabetes mellitus 4. Paroxysmal atrial fibrillation Core Measures/Miscellaneous Acute Coronary Syndrome ACS Diagnosis: No Cerebrovascular Accident CVA/TIA Diagnosis: No Congestive Heart Failure CHF Diagnosis: Yes Date of most recent Echo: 07/18/16 Last Known EF %: 70 DEEPA/ARB for EF <40%: Yes (EF estimated at 70%) Venous Thromboembolism VTE Risk Factors: Acute medical illness, Age > 40, CHF or Resp failure, Obesity [facility] prophylaxis d/t: No contraindications No VTE Pharm Prophylaxis d/t: No contraindications VTE Diagnosis: No VTE Type: NONE VTE Confirmed by (Test): NONE Severe Sepsis Severe Sepsis Present: No Septic Shock Septic Shock Present: No Miscellaneous Documentation Attending Case Discussed With: JACQUELIN SHULTZ MD Primary Care Physician: EM PONCE MD Patient sees these Specialists [employer] Manager Yakov Galloway MD PhD Level of Patient Care: Telemetry PATRICIA HENRY,[facility] 01/18/17 1553: Resident Review Statement Resident Statement: examined this patient, discussed with dental internship, discussed with family, reviewed EMR data (avail) Other Findings: 82-year-old woman with past medical history of diabetes mellitus type II, history of non-ST elevation WI, mitral valve replacement, paroxysmal atrial fibrillation currently on Eliquis and Cardizem, diastolic dysfunction, and CKD Stage III who presented to the ED complaining of shortness of breath on exertion. Vitals in emergency department Afebrile, tachycardic, blood pressure 134/73, oxygen saturation 93% on 3 L of nasal cannula On examination patient was alert and oriented without any acute distress. Bilateral decreased air entry with some crackles on lung examination. Irregularly irregular pulse tachycardic. S1 and S2 audible. Normal bowel sounds, bilateral lower extremity edema 3+ pitting. Grossly intact neurological examination. Patient was admitted on telemetry floor for management of falling problems CONGESTIVE HEART FAILURE/VOLUME OVERLOAD -Most likely acute CHF exacerbation vs WI vs non compliance with medications -No acute EKG ST changes and negative troponin 0.04. - Hemodynamically stable, 2+ve B/L Lowr extremity edema - CXR shows signs of fluid overload. - Admit to telemetry - Vitals q Shift - pulse oximetry - Trend troponins and EKG - Follow up ECHO if needed - TRC nebs as needed - Monitor I/O - Daily weight - Cardio consult - Last Echo was done in jul 2016, Ef 70% - Continue Bumex, last time patient was given IV Bumex - IV Furosemide 40mg given in ED - Continue Metoprolol, Cardizem AND Losartan Patient has past medical history of diabetes and is currently on insulin - Accu-Cheks - Low dose insulin sliding scale and long-acting insulin started - Give dinner (Diabetic Diet) Patient is full code Patient is on pain pathway Patient is Eliquis for DVT prophylaxis Call for Cardiology in JACQUELIN SHULTZ MD 01/18/17 1617: Attending Review Statement Attending Statement Attending Statement: examined this patient, discuss w/resident/PA/ROLLER SKATER, agreed w/resident/PA/ROLLER SKATER, reviewed EMR data (avail), reviewed images, amended to note Attending Assessment/Plan: Problems: -Acute on chronic CHF -CAD S/P WI -Mitral valve replacement -PAF -COPD -T2 DM Plan: -Admit telemetry -Intravenous diuresis -TRC -Sliding-scale insulin coverage -Continue other maintenance medications
[2017-01-18 16:03] VITALS: BP 129/80
[2017-01-18] MEDS ORDERED: BUMETANIDE1 M1 PO (17:40)
[2017-01-18 23:28] VITALS: BP 122/78
[2017-01-19 08:21] VITALS: BP 121/76
--- NOTE | 2017-01-19 09:24 | PN- Housestaff ---
Subjective Follow-up For: CHF exacerbation Complaints: BETTER Tele-Events Since Last Visit: Atrial fibrillation, heart rate 79-131, no event Subjective: I followed up and examined the patient today. She is resting comfortably in a chair, requiring additional oxygen via nasal cannula at 4L/min, is not in distress, said herself that she is better than before, does not have any complaints, no overnight events. Review of Systems Constitutional: Reports: see HPI. Objective Last 24 Hrs of Vital Signs/I&O Vital Signs Date Time Temp Pulse Resp B/P Pulse O2 O2 Flow FiO2 Ox Delivery Rate 01/19 1348 101 140/80 01/19 1052 94 Nasal 3.0L Cannula 01/19 1002 133 140/90 01/19 1002 98.6 133 140/90 01/19 0821 98.6 128 22 121/76 96 Room Air 3.0L 01/19 0800 94 Nasal 4.0L Cannula 01/19 0000 Nasal 4.0L Cannula 01/18 2328 98.0 127 22 122/78 92 Nasal Cannula 01/18 2228 Nasal 4.0L Cannula 01/18 2114 133 144/82 01/18 1800 132 129/80 01/18 1603 98.4 134 22 129/80 88 Nasal 3.5L Cannula 01/18 1500 Nasal 3.0L Cannula 01/18 1446 98.6 93 18 135/85 93 Nasal 3.0L Cannula Intake & Output 01/19 1600 01/19 0800 01/19 0000 Intake Total 240 100 610 Output Total 994 199 1898 Balance -560 -500 -890 Intake, IV 10 Intake, Oral 240 100 600 Number 1 Bowel Movements Output, Urine [phone] Patient 100.244 kg Weight Physical Exam General Appearance: Alert, Oriented X3, Cooperative, No Acute Distress, has additional oxygen via nasal cannula Other Physical Findings: HEENT Atraumatic, Mucous Membr. moist/pink Neck Supple Cardiovascular Regular Rate, Normal S1, Normal S2 Lungs Diminished Breath Sounds, Bibasilar Crackles Abdomen Soft, No Tenderness, Positive Bowel Sounds Extremities No Clubbing, No Cyanosis, 3+ Pitting Edema on Bilateral Lower Extremities Current Medications: Current Medications Sig/Andrei Start time Last Medication Dose Route Stop Time Status Admin Acetaminophen 650 MG Q6 01/18 1800 AC 01/19 PO 0550 Albuterol Sulfate 3 ML BID 01/19 1000 AC INH Albuterol Sulfate 3 ML BID PRN 01/18 2300 AC INH Albuterol Sulfate 3 ML BID PRN 01/18 2245 CAN INH Albuterol Sulfate 3 ML BID PRN 01/18 1500 DC INH Apixaban 5 MG BID 01/18 2200 AC 01/19 PO 1002 Bumetanide 4 MG BID 01/18 2200 CAN PO Bumetanide 4 MG 0800 & 1700 01/18 1700 AC 01/19 IV 0824 Diltiazem HCl 60 MG Q8 01/19 1400 AC 01/19 PO 1348 Diltiazem HCl 120 MG DAILY 01/19 1000 DC 01/19 PO 1002 Diltiazem HCl 10 MG ONCE ONE 01/18 1700 DC 01/18 IV 01/18 1701 1800 Insulin Aspart 0 TIDAC 01/18 1700 AC 01/19 SC 1246 Insulin Detemir 25 UNITS DAILY 01/19 1000 AC 01/19 SC 1010 Losartan Potassium 50 MG DAILY 01/19 1000 AC 01/19 PO 1002 Metoprolol Tartrate 25 MG BID 01/18 2200 AC 01/19 PO 1002 Metoprolol Tartrate 5 MG .STK-MED ONE 01/18 2048 DC IV 01/18 204 Metoprolol Tartrate 25 MG ONCE ONE 01/18 1630 CAN PO 01/18 1631 Nystatin 1 JORDAN TID PRN 01/18 2300 AC 01/19 TOP 1349 Oxycodone HCl 5 MG Q8P PRN 01/18 1515 AC PO Oxycodone/ 1 TAB Q8P PRN 01/18 1515 AC Acetaminophen PO Patient Medication 1 UNIT ONE NR 01/18 1515 [place] Teaching ED 01/18 1530 Patient Medication 1 UNIT ONE NR 01/18 1515 [place] Teaching ED 01/18 1530 Patient Medication 1 UNIT ONE NR 01/18 1515 [place] Teaching ED 01/18 1530 Patient Medication 1 UNIT ONE NR 01/18 1515 [place] Teaching ED 01/18 1530 Patient Medication 1 UNIT ONE NR 01/18 1515 [place] Teaching ED 01/18 1530 Patient Medication 1 UNIT ONE NR 01/18 1515 [place] Teaching ED 01/18 1530 Potassium Chloride 20 MEQ DAILY 01/18 1456 AC 01/19 PO 1002 Theophylline 150 MG BID 01/18 2200 AC 01/19 PO 1247 Last 24 Hrs of Lab/Arturo Results Last 24 Hrs of Labs/Mics: Laboratory Tests 01/19/17 0856: Anion Gap 11, Estimated GFR 39 L, BUN/Creatinine Ratio 24.6 01/18/17 1646: Troponin I 0.03 01/18/17 1630: Urine Color YEL, Urine Clarity CLEAR, Urine pH 6.5, Ur Specific Jay 1.010, Urine Protein TRACE H, Urine Ketones NEG, Urine Nitrite NEG, Urine Bilirubin NEG, Urine Urobilinogen 0.2, Ur Leukocyte Esterase NEG, Ur Microscopic SEDIMENT EXAMINED, Urine RBC RARE, Ur Epithelial Cells FEW, Urine Bacteria MANY H, Urine Hemoglobin TRACE-INTACT, Urine Glucose NEG Microbiology 01/18 1630 URINE ROUT: Urine Culture - RES GRAM POSITIVE COCCI Assessment/Plan Assessment: 82 y/o F with PMHx of mitral stenosis s/p mitral valve replacement, paroxysmal atrial fibrillation on Eliquis and diastolic CHF who presents with shortness of breath and leg swelling secondary to acute on chronic diastolic CHF. #Acute on chronic diastolic CHF: Presented with SOB and leg swelling. Still on 4 L NC, significantly increased from her baseline of 2.5 L NC. ProBNP 3980. CXR with cardiomegaly and increased insterstitial edema. Most recent ECHO in July 2016 with LVEF of 70%. S/p 40 mg of IV Lasix administered in the ED. * Continue telemetry. ACS ruled out. * Continue diuretics Bumex 4 mg IV BID. Continue sodium restriction in diet. * Continue prior to admission Losartan 50 mg PO daily. * Continue TRC and nebs. * Monitor I/Os and daily weights. * Consult cardiology if patient clinically deteriorates. #Paroxysmal atrial fibrillation: * Continue Eliquis 5 mg PO BID. * Continue prior to admission metoprolol 25 mg PO BID * Diltiazem 120 mg per oral has been changed to 60 mg every 8 hours #Insulin-dependent T2DM: On glimepiride 2 mg PO BID, Glargine 25 units SQ daily and Lispro sliding scale TIDAC. * Hold oral hypoglycemic agents whiele inpatient. * Continue long-acting insulin Levemir 25 units SQ daily. * Accu-checks and low dose sliding scale Novolog TIDAC. Diet: Consistent Carbohydrate 2 with 2 g Na Restriction DVT PPx: Eliquis and ALPs CODE: FULL Problem List: 1. CHF exacerbation 2. Afib Pain Ratin Pain Location: - Pain Goal: Remain pain free Pain Plan: prn Tomorrow's Labs & Rationales: BEP, INR
--- NOTE | 2017-01-19 10:46 | PN- Student ---
Subjective Subjective: Ira Han is an 82 yoF with an extensive PMH, including paroxysmal atrial fibrillation on Apixaban, diastolic CHF, mitral stenosis s/p mitral valve replacement, insulin dependent type 2 diabetes, and CKD, who presented on with a 3 day history of worsening SOB and BLE edema. Her oxygen requirements had increased from her 2.5L baseline. Since admission, she has received Lasix 40mg IV x1 and schedule Bumex 4mg IV with significant diuresis. She states she feels "alright," but has not noticed an improvement in her BLE edema. She states she is comfortable on her current oxygen settings. She denies any new developments of CP, worsening SOB, palpitations, nausea, vomiting, or new or worsening edema. She reports a healthy appetite. Current Medications Sig/Andrei Start time Last Medication Dose Route Stop Time Status Admin Acetaminophen 650 MG Q6 01/18 1800 AC 01/19 PO 0550 Albuterol Sulfate 3 ML BID 01/19 1000 AC INH Albuterol Sulfate 3 ML BID PRN 01/18 2300 AC INH Albuterol Sulfate 3 ML BID PRN 01/18 2245 CAN INH Albuterol Sulfate 3 ML BID PRN 01/18 1500 DC INH Apixaban 5 MG BID 01/18 2200 AC 01/19 PO 1002 Bumetanide 4 MG BID 01/18 2200 CAN PO Bumetanide 4 MG 0800 & 1700 01/18 1700 AC 01/19 IV 0824 Diltiazem HCl 120 MG DAILY 01/19 1000 AC 01/19 PO 1002 Diltiazem HCl 10 MG ONCE ONE 01/18 1700 DC 01/18 IV 01/18 1701 1800 Diltiazem HCl 10 MG ONCE ONE 01/18 1245 DC 01/18 IV 01/18 1246 1253 Diltiazem HCl 0 .STK-MED ONE 01/18 1244 DC .ROUTE Furosemide 0 .STK-MED ONE 01/18 1243 DC IV Furosemide 40 MG ONCE ONE 01/18 1230 DC 01/18 IV 01/18 1231 1253 Insulin Aspart 0 TIDAC 01/18 1700 AC 01/18 SC 1728 Insulin Detemir 25 UNITS DAILY 01/19 1000 AC 01/19 SC 1010 Losartan Potassium 50 MG DAILY 01/19 1000 AC 01/19 PO 1002 Metoprolol Tartrate 25 MG BID 01/18 2200 AC 01/19 PO 1002 Metoprolol Tartrate 5 MG .STK-MED ONE 01/18 204 DC IV 01/18 204 Metoprolol Tartrate 25 MG ONCE ONE 01/18 1630 CAN PO 01/18 1631 Nystatin 1 JORDAN TID PRN 01/18 2300 AC TOP Oxycodone HCl 5 MG Q8P PRN 01/18 1515 AC PO Oxycodone/ 1 TAB Q8P PRN 01/18 1515 AC Acetaminophen PO Patient Medication 1 UNIT ONE NR 01/18 1515 HI Teaching ED 01/18 1530 Patient Medication 1 UNIT ONE NR 01/18 1515 HI Teaching ED 01/18 1530 Patient Medication 1 UNIT ONE NR 01/18 1515 HI Teaching ED 01/18 1530 Patient Medication 1 UNIT ONE NR 01/18 1515 HI Teaching ED 01/18 1530 Patient Medication 1 UNIT ONE NR 01/18 1515 HI Teaching ED 01/18 1530 Patient Medication 1 UNIT ONE NR 01/18 1515 HI Teaching ED 01/18 1530 Potassium Chloride 20 MEQ DAILY 01/18 1456 AC 01/19 PO 1002 Theophylline 150 MG BID 01/18 2200 AC 01/18 PO 2114 Objective Objective: Vital Signs Date Time Temp Pulse Resp B/P Pulse O2 O2 Flow FiO2 Ox Delivery Rate 01/19 1002 133 140/90 01/19 1002 98.6 133 140/90 01/19 0821 98.6 128 22 121/76 96 Room Air 3.0L 01/19 0800 94 Nasal 4.0L Cannula 01/19 0000 Nasal 4.0L Cannula 01/18 2328 98.0 127 22 122/78 92 Nasal Cannula 01/18 2228 Nasal 4.0L Cannula 01/18 2114 133 144/82 01/18 1800 132 129/80 01/18 1603 98.4 134 22 129/80 88 Nasal 3.5L Cannula 01/18 1500 Nasal 3.0L Cannula 01/18 1446 98.6 93 18 135/85 93 Nasal 3.0L Cannula 01/18 1403 98 01/18 1253 98.6 123 18 134/73 01/18 1250 98.6 123 18 134/73 93 Nasal 3.0L Cannula 01/18 1148 98.4 123 21 123/84 90 Nasal 3.0L Cannula 01/18 1040 89 Nasal 3.0L Cannula 01/18 1033 97.0 95 21 115/66 90 Nasal 3.0L Cannula Intake & Output 01/19 1600 01/19 0800 01/19 0000 Intake Total 100 610 Output Total 600 1500 Balance -500 -890 Intake, IV 10 Intake, Oral 100 600 Output, Urine 600 1500 Patient 221 lb Weight Telemetry monitoring overnight: Atrial fibrillation, 79-131 bpm. No events. General: resting in chair, no acute distress, A&O x3 CV: S1,S2; tachycardic and irregular Pulmonary: bibasilar crackles, occasional expiratory wheezing. tachypneic. GI: abdomen soft, non-tender. bowel sounds present and normoactive. Extremities: warm. BLE with 3+ edema. Skin: red discoloration of BLE with small wound noted on RLE fiore. Results Results: Laboratory Tests 01/18/17 1646: Troponin I 0.03 01/18/17 1630: Urine Color YEL, Urine Clarity CLEAR, Urine pH 6.5, Ur Specific [place] 1.010, Urine Protein TRACE H, Urine Ketones NEG, Urine Nitrite NEG, Urine Bilirubin NEG, Urine Urobilinogen 0.2, Ur Leukocyte Esterase NEG, Ur Microscopic SEDIMENT EXAMINED, Urine RBC RARE, Ur Epithelial Cells FEW, Urine Bacteria MANY H, Urine Hemoglobin TRACE-INTACT, Urine Glucose NEG 01/18/17 1029: pH 7.46 H, pCO2 40, pO2 57 L, HCO3 27, ABG O2 Sat (Measured) 89.0 L, Carboxyhemoglobin 1.3 L, O2 Concentration % 3L, O2 Delivery Method N/C, Phlebotomy Draw Site LEFT RADIAL 01/18/17 1021: Glucose 180 H Calcium 9.7 Total Bilirubin 0.7, AST 18, ALT 29, Alkaline Phosphatase 63 Troponin I 0.04, [id number] Pept 3980 H Total Protein 7.7, Albumin 3.7, Globulin 4.0 PT 19.4 H, INR 1.86 H, APTT 31 Assessment/Plan Assessment: Ira Han is an 82yo F with an extensive PMH including mitral stenosis s/ p valve replacement, paroxysmal atrial fibrillation on apixaban, diastolic CHF, type 2 DM, and CKD, who presented with a 3 day history of worsening SOB and BLE edema. Plan: Dyspnea, BLE Edema: likely acute exacerbation of chronic diastolic CHF. pro-BNP on admission was 3980. Physical exam findings of bibasilar crackles, increasing oxygen requirements, and 3+ edema of BLE support this * Continue telemetry monitoring * Continue Bumex 4mg BID * Strict I&O, daily weight * Educate patient on CHF lifestyle changes, including dietary, sodium restrictions, daily weights, and activity paroxysmal atrial fibrillation: chronic, on apixaban and cardizem as outpatient. Has been in atrial fibrillation since admission, with rate up to 131 bpm. * Continue telemetry monitoring * Continue Apixaban and Cardizem per home dosing * Consider Cardizem drip if rate becomes too rapid Insulin Dependent Type 2 DM: Glucose on admission was 180. On Humalog SSI and Insulin Glargine at home. * Continue SSI before meals * Continue Insulin Glargine at bedtime * Carb Control Diet * Educate patient on diet, lifestyle prior to discharge CKD: BUN was 39 on admission, Cr was 1.3. * Continue to monitor renal function daily * Caution with IVF Code Status: Full Code Diet: Carb Control
--- NOTE | 2017-01-19 12:19 | PN- Att Addend ---
Attending Addendum Attending Brief Note Mrs. Han states her breathing is improved today. She denies chest pain. She is afebrile with stable respiration and blood pressure. She is mildly tachycardic with a heart rate of 115 to 120. Her pulmonary exam shows mildly decreased breath sounds with a few fine rales at the bases posteriorly. Cardiovascular exam reveals a regular rate and rhythm and a 3/6 precordial systolic ejection murmur. Lower extremities are edematous with chronic stasis changes. Her CBC and electrolytes are stable. Her urine is growing gram-positive cocci and we are awaiting identification and sensitivity. We should continue her intravenous diuresis. In light of her increased heart rate I have asked cardiology to visit this patient. We will change her diltiazem from 120mg sustained release to 60 mg by mouth every 8 hours and follow her heart rate. We will continue our other therapeutic modalities. Her urine culture will be followed but most likely represents bacteriuria and not an infection.
--- NOTE | 2017-01-19 14:46 | Cons- Cardiology ---
General Information and HPI Consulting Request Date of Consult: 01/19/17 [facility]ed By: [facility] Reason for Consult: Elevated heart rate, atrial fibrillation, assistance with management of cardiac issues Source of Information: patient, old records History of Present Illness: The patient is an 82-year-old female who is followed by Yakov Galloway MD. Her past medical history is remarkable for mitral stenosis, status post mitral valve replacement, paroxysmal atrial fibrillation on anticoagulant therapy, and diastolic heart failure. The patient presents with worsening shortness of breath and lower extremity edema for several days. She has also noted increasing oxygen requirements. She has had increasing lower extremity edema and erythema of her legs as well. She has been taking her diuretics at home. According to the patient, her weight has not significant change. She denied any other cardiovascular symptoms. In the hospital, the patient was noted to have an increased resting heart rate is well. 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 Apixaban (Eliquis) 5 MG TABLET 1 TAB PO BID BLOOD THINNER (Reported) Bumetanide 1 MG TABLET 2 MG PO 4 TIMES/DAY heart failure Diltiazem Cd (Diltiazem ER) 120 MG CAP.ER.DEG 120 MG PO DAILY AFIB Ferrous Sulfate 325 MG TABLET 1 TAB PO BID SUPPLEMENT (Reported) Glimepiride (Amaryl) 2 MG TABLET 1 TAB PO BID DM (Reported) Insulin Glargine,Hum.rec.anlog (Toumane Amado) 300 UNIT/1 ML INSULN.PEN 25 U SC DAILY DIABETES (Reported) Insulin Lispro (Humalog Kwikpen U-100) 100 UNIT/1 ML INSULN.PEN DIABETES ( Reported) BEFORE MEALS Blood Insulin Sugar Units 151-200 1 201-250 2 251-300 3 301-350 4 351-400 5 >400 6 Call Doctor Losartan Potassium 50 MG TABLET 1 TAB PO DAILY high blood pressure Metoprolol Tartrate 25 MG TABLET 25 MG PO BID AFIB Potassium Chloride 20 MEQ TAB.ER.PRT 1 TAB PO DAILY K+ (Reported) Theophylline Anhydrous 300 MG TAB.ER.12H 0.5 TAB PO BID CSA (Reported) Current Medications: Current Medications Sig/Andrei Start time Last Medication Dose Route Stop Time Status Admin Acetaminophen 650 MG Q6 01/18 1800 AC 01/19 PO 0550 Albuterol Sulfate 3 ML BID 01/19 1000 AC INH Albuterol Sulfate 3 ML BID PRN 01/18 2300 AC INH Albuterol Sulfate 3 ML BID PRN 01/18 2245 CAN INH Albuterol Sulfate 3 ML BID PRN 01/18 1500 DC INH Apixaban 5 MG BID 01/18 2200 AC 01/19 PO 1002 Bumetanide 4 MG BID 01/18 2200 CAN PO Bumetanide 4 MG 0800 & 1700 01/18 1700 AC 01/19 IV 0824 Diltiazem HCl 60 MG Q8 01/19 1400 AC 01/19 PO 1348 Diltiazem HCl 120 MG DAILY 01/19 1000 DC 01/19 PO 1002 Diltiazem HCl 10 MG ONCE ONE 01/18 1700 DC 01/18 IV 01/18 1701 1800 Insulin Aspart 0 TIDAC 01/18 1700 AC 01/19 SC 1246 Insulin Detemir 25 UNITS DAILY 01/19 1000 AC 01/19 SC 1010 Losartan Potassium 50 MG DAILY 01/19 1000 AC 01/19 PO 1002 Metoprolol Tartrate 25 MG BID 01/18 2200 AC 01/19 PO 1002 Metoprolol Tartrate 5 MG .STK-MED ONE 01/18 2048 DC IV 01/18 204 Metoprolol Tartrate 25 MG ONCE ONE 01/18 1630 CAN PO 01/18 1631 Nystatin 1 JORDAN TID PRN 01/18 2300 AC 01/19 TOP 1349 Oxycodone HCl 5 MG Q8P PRN 01/18 1515 AC PO Oxycodone/ 1 TAB Q8P PRN 01/18 1515 AC Acetaminophen PO Patient Medication 1 UNIT ONE NR 01/18 1515 UT Teaching ED 01/18 1530 Patient Medication 1 UNIT ONE NR 01/18 1515 UT Teaching ED 01/18 1530 Patient Medication 1 UNIT ONE NR 01/18 1515 UT Teaching ED 01/18 1530 Patient Medication 1 UNIT ONE NR 01/18 1515 UT Teaching ED 01/18 1530 Patient Medication 1 UNIT ONE NR 01/18 1515 [facility] ED 01/18 1530 Patient Medication 1 UNIT ONE NR 01/18 1515 [facility] ED 01/18 1530 Potassium Chloride 20 MEQ DAILY 01/18 1456 AC 01/19 PO 1002 Theophylline 150 MG BID 01/18 2200 AC 01/19 PO 1247 Past History Travel History Traveled to [place] past 21 day No Medical History Blood Transfusion Hx: No Neurological: peripheral neuropathy EENT: NONE Cardiovascular: AFIB, CAD, diastolic CHF, hypertension, hyperlipidemia, myocardial infarction, mitral stenosis Respiratory: pneumonia, small lung nodules obesity hypoventilation syndrome Gastrointestinal: lower GI bleed, GI bleed Hepatic: NONE Renal: chronic kidney disease Psychiatric: NONE Endocrine: insulin-dependent type 2 diabetes mellitus Blood Disorders: anemia, DVT Cancer(s): breast 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 Relation not specified for: FH: stroke Psychosocial History Where Do You Live? Home Who Do You Live With? self Services at Home: Nursing, Oxygen Primary Language: Khmer Smoking Status: Former Smoker (Quit Smoking >40 Years Ago) ETOH Use: denies use Illicit Drug Use: denies illicit drug use Living Will? yes Functional Ability ADLs Independent: dressing, eating, toileting, bathing. Ambulation: cane, walker IADLs Independent: finances, telephone, medication admin. Needs Assist: shopping, housework, food prep, transportation. Exam & Diagnostic Data Vital Signs and I&O Vital Signs Date Time Temp Pulse Resp B/P Pulse O2 O2 Flow FiO2 Ox Delivery Rate 01/19 1348 101 140/80 01/19 1052 94 Nasal 3.0L Cannula 01/19 1002 133 140/90 01/19 1002 98.6 133 140/90 01/19 0821 98.6 128 22 121/76 96 Room Air 3.0L 01/19 0800 94 Nasal 4.0L Cannula 01/19 0000 Nasal 4.0L Cannula 01/18 2328 98.0 127 22 122/78 92 Nasal Cannula 01/18 2228 Nasal 4.0L Cannula 01/184 133 144/82 01/18 1800 132 129/80 01/18 1603 98.4 134 22 129/80 88 Nasal 3.5L Cannula 01/18 1500 Nasal 3.0L Cannula Intake & Output 01/19 0800 01/19 0000 01/18 1600 01/18 0800 01/18 0000 Intake Total 240 100 610 Output Total 016 263 4406 101 Balance -560 -500 -890 -101 Intake, IV 10 Intake, Oral 240 100 600 Number 1 Bowel Movements Output, Stool 1 Output, Urine 378 444 9167 100 Patient 221 lb 220 lb Weight Physical Exam: General Appearance Alert, Oriented X3, No Acute Distress HEENT Atraumatic, Mucous Membr. moist/pink Neck Supple, JVP normal Carotids normal Cardiovascular Irregular Rate, Normal S1, Normal S2, 1-2/6 systolic murmur Lungs Diminished Breath Sounds, Bibasilar Crackles Abdomen Soft, No Tenderness, Positive Bowel Sounds Extremities No Clubbing, No Cyanosis, 2+ Pitting Edema on Bilateral Lower Extremities Labs/Arturo Results: Laboratory Tests 01/19 01/18 01/18 0856 1646 1630 Chemistry Sodium (137 - 145 mmol/L) 143 Potassium (3.5 - 5.1 mmol/L) 4.1 Chloride (98 - 107 mmol/L) 98 Carbon Dioxide (22 - 30 mmol/L) 34 H Anion Gap (5 - 16) 11 BUN (7 - 17 mg/dL) 32 H Creatinine (0.5 - 1.0 mg/dL) 1.3 H Estimated GFR (>60 ml/min) 39 L BUN/Creatinine Ratio (7 - 25 %) 24.6 Troponin I (< 0.11 ng/ml) 0.03 Urines Urine Color (YEL,AMB,STR) YEL Urine Clarity (CLEAR) CLEAR Urine pH (5.0 - 8.0) 6.5 Ur Specific [place] (1.001 - 1.035) 1.010 Urine Protein (NEG,<30 MG/DL) TRACE H Urine Ketones (NEG) NEG Urine Nitrite (NEG) NEG Urine Bilirubin (NEG) NEG Urine Urobilinogen (0.1 - 1.0 EU/dl) 0.2 Ur Leukocyte Esterase (NEG) NEG Ur Microscopic SEDIMENT EXAMINED Urine RBC (0 - 5 /HPF) RARE Ur Epithelial Cells (NONE,FEW) FEW Urine Bacteria (NEG/NONE) MANY H Urine Hemoglobin (NEG) TRACE-INTACT Urine Glucose (N MG/DL) NEG 01/18 01/18 1029 1021 Blood Gas pH (7.35 - 7.45 PH) 7.46 H pCO2 (35 - 45 TORR) 40 pO2 (80 - 100 TORR) 57 L HCO3 (21 - 28 MEQ/L) 27 ABG O2 Sat (Measured) (>96.0 %) 89.0 L Carboxyhemoglobin (1.5 - 5.0 %) 1.3 L O2 Concentration % 3L O2 Delivery Method N/C Chemistry Sodium (137 - 145 mmol/L) 142 Potassium (3.5 - 5.1 mmol/L) 3.9 Chloride (98 - 107 mmol/L) 96 L Carbon Dioxide (22 - 30 mmol/L) 31 H Anion Gap (5 - 16) 14 BUN (7 - 17 mg/dL) 39 H Creatinine (0.5 - 1.0 mg/dL) 1.3 H Estimated GFR (>60 ml/min) 39 L BUN/Creatinine Ratio (7 - 25 %) 30.0 H Glucose (65 - 99 mg/dL) 180 H Calcium (8.4 - 10.2 mg/dL) 9.7 Total Bilirubin (0.2 - 1.3 mg/dL) 0.7 AST (14 - 36 U/L) 18 ALT (9 - 52 U/L) 29 Alkaline Phosphatase (<127 U/L) 63 Troponin I (< 0.11 ng/ml) 0.04 [id number] Pept (<125 pg/mL) 3980 H Total Protein (6.3 - 8.2 g/dL) 7.7 Albumin (3.5 - 5.0 g/dL) 3.7 Globulin (1.9 - 4.2 gm/dL) 4.0 Albumin/Globulin Ratio (1.1 - 2.2 %) 0.9 L Coagulation PT (9.4 - 12.5 SEC) 19.4 H INR (0.90 - 1.19) 1.86 H APTT (25 - 37 SEC) 31 Hematology CBC w Diff NO MAN DIFF REQ WBC (4.8 - 10.8 /CUMM) 8.0 RBC (4.20 - 5.40 /CUMM) 4.08 L Hgb (12.0 - 16.0 G/DL) 12.2 Hct (37 - 47 %) 38.0 MCV (81.0 - 99.0 FL) 93.1 MCH (27.0 - 31.0 PG) 30.0 RDW (11.5 - 14.5 %) 19.6 H Plt Count (130 - 400 /CUMM) 238 MPV (7.4 - 10.4 FL) 8.2 Gran % (42.2 - 75.2 %) 81.0 H Lymphocytes % (20.5 - 51.1 %) 9.0 L Monocytes % (1.7 - 9.3 %) 7.9 Eosinophils % (0 - 5 %) 1.8 Basophils % (0.0 - 2.0 %) 0.3 Absolute Granulocytes (1.4 - 6.5 /CUMM) 6.5 Absolute Lymphocytes (1.2 - 3.4 /CUMM) 0.7 L Absolute Monocytes (0.10 - 0.60 /CUMM) 0.6 Absolute Eosinophils (0.0 - 0.7 /CUMM) 0.1 Absolute Basophils (0.0 - 0.2 /CUMM) 0 PUBS MCHC (33.0 - 37.0 G/DL) 32.2 L Miscellaneous Phlebotomy Draw Site LEFT RADIAL Diagnostic Data CXR Results IMPRESSION: Cardiomegaly with CHF and probable interstitial edema. Similar findings were seen on 11/28/2016. Assessment/Plan Assessment/Plan Assessment: 1. Atrial fibrillation with elevated ventricular rate 2. Acute on chronic HFpEF 3. Insulin dependent diabetes 4. Chronic renal insufficiency 6. History of bioprosthetic mitral valve 7. Status post permanent pacemaker Recommendations: -For now, continue management as per the medical team. -As discussed with Dr. Kiser, the plan is to transition the patient to Cardizem 60 mg 3 times a day for now to optimize her rate control. In 24 hours, she can be transitioned back to once daily Cardizem if the rate is controlled. -Followup labs in AM -Continue diuresis as outlined -Monitor strict I/Os and weights. Consult Acknowledgment - Thank you for your consult request.
[2017-01-19 16:35] VITALS: BP 134/53
[2017-01-19 23:50] VITALS: BP 116/84
--- NOTE | 2017-01-20 05:55 | NUR ---
UPON ASSESSMENT AT APPROXIMATELY 0530 PT PRESENTED AGITATED AND DEMANDED TO SPEAK WITH HER SON DREW. AT THIS TIME THE PT REFUSED HER MEDICATIONS AND BP READING TO BE TAKEN. SHE STATED "I WANT MY SON TO COME AND GET ME AND BRING ME TO [facility] OR IM CALLING THE POLICE." WHEN ASKED WHY SHE FELT THIS WAY THE PT REFUSED TO SPEAK WITH THIS RN AND DEMANDED I CALL HER SON AGAIN. 02 AT THIS TIME WAS 91% ON 4L HR 96. DREW WAS CONTACTED AND SPOKE WITH PT, NO CHANGE AT THIS TIME. MADE AWARE OF PT REFUSING MEDICATIONS. WILL CONTINUE TO MONITOR.
--- NOTE | 2017-01-20 06:48 | PN- Att Addend ---
Attending Addendum Attending Brief Note Attending note. Feels fairly okay on 4 L oxygen and still shortness of breath. Intake & Output 01/20 0800 01/20 0000 01/19 1600 Intake Total 620 240 Output Total 1550 800 Balance -930 -560 Intake, IV 20 Intake, Oral 600 240 Number 1 Bowel Movements Output, Urine 1550 800 Vital Signs Date Time Temp Pulse Resp B/P Pulse O2 O2 Flow FiO2 Ox Delivery Rate 01/20 617 105 130/68 01/20 0000 Nasal 4.0L Cannula 01/19 2350 98.0 63 20 116/84 95 Nasal 4.0L Cannula 01/19 2053 116 138/80 01/19 2053 116 138/80 01/20 2012 85 Nasal 3.0L Cannula 01/19 1635 97.7 48 20 134/53 90 Nasal 3.0L Cannula 01/19 1600 Nasal 4.0L Cannula 01/19 1348 101 140/80 01/19 1052 94 Nasal 3.0L Cannula 01/19 1002 133 140/90 01/19 1002 98.6 133 140/90 01/19 0821 98.6 128 22 121/76 96 Room Air 3.0L 01/19 0800 94 Nasal 4.0L Cannula Intake & Output 01/20 0800 01/20 0000 01/19 1600 Intake Total 620 240 Output Total 1550 800 Balance -930 -560 Intake, IV 20 Intake, Oral 600 240 Number 1 Bowel Movements Output, Urine 1550 800 On examination patient is mildly short of breath she cannot tell finisher. Statins. Neck is supple JVD is normal S1-S2 is irregular 2 x 6 tolerate murmur Lungs shows diminished air entry both bases with bibasilar crackles abdomen is soft distended but nontender bowel sounds are present Extremities shows 3+ edema. Assessment #1 acute on chronic CHF diastolic With Lasix 40 mg twice a day. IV pole of 48 hours is already negative balance of -7 30 mL. #2 was atrial fibrillation with rapid ventricular response per cardiology switch Cardizem 60 mg 3 times a day. #3 is insulin-dependent diabetes right now cover the glucose with the sliding scale. Activity prophylaxis #4 is history of for CKG stage II monitor her be like lites today Laboratory Tests 01/19 0856 Chemistry Sodium (137 - 145 mmol/L) 143 Potassium (3.5 - 5.1 mmol/L) 4.1 Chloride (98 - 107 mmol/L) 98 Carbon Dioxide (22 - 30 mmol/L) 34 H Anion Gap (5 - 16) 11 BUN (7 - 17 mg/dL) 32 H Creatinine (0.5 - 1.0 mg/dL) 1.3 H Estimated GFR (>60 ml/min) 39 L BUN/Creatinine Ratio (7 - 25 %) 24.6
--- NOTE | 2017-01-20 07:24 | PN- Housestaff ---
Subjective Follow-up For: CHF exacerbation Paroxysmal atrial fibrillation Tele-Events Since Last Visit: Atrial fibrillation/flutter HR 64-105 No events Subjective: No acute events overnight. Patient was seen and examined this morning. She reports that her shortness of breath is improved but her leg swelling is about the same. She remains on 4 L NC. Her nasal cannula came off today (details are unclear) and she subsequently desatted to 82% on room air and developed shortness of breath. Rapid response was called and she was put on facemask with resolution of episode. STAT EKG and troponin were ordered and came back negative. Review of Systems Constitutional: Reports: see HPI. Objective Last 24 Hrs of Vital Signs/I&O Vital Signs Date Time Temp Pulse Resp B/P Pulse O2 O2 Flow FiO2 Ox Delivery Rate 01/20 0849 97.6 128 20 120/90 96 Nasal 4.0L Cannula 01/20 0617 105 130/68 01/20 0000 Nasal 4.0L Cannula 01/19 2350 98.0 63 20 116/84 95 Nasal 4.0L Cannula 01/19 2053 116 138/80 01/19 2053 116 138/80 01/19 2012 85 Nasal 3.0L Cannula 01/19 1635 97.7 48 20 134/53 90 Nasal 3.0L Cannula 01/19 1600 Nasal 4.0L Cannula 01/19 1348 101 140/80 01/19 1052 94 Nasal 3.0L Cannula 01/19 1002 133 140/90 01/19 1002 98.6 133 140/90 Intake & Output 01/20 1600 01/20 0800 01/20 0000 Intake Total 50 620 Output Total 200 1550 Balance -150 -930 Intake, IV 20 Intake, Oral 50 600 Output, Urine 200 1550 Physical Exam General Appearance: Alert, Oriented X3, No Acute Distress HEENT: Atraumatic, Mucous Membr. moist/pink Neck: Supple Cardiovascular: Normal S1, Normal S2, Irregular Rate Lungs: Diminished Breath Sounds Abdomen: Soft, No Tenderness, Positive Bowel Sounds Extremities: No Clubbing, No Cyanosis, Chronic Lymphedema with Superimposed 1+ Bilateral Pitting Edema Current Medications: Current Medications Sig/Andrei Start time Last Medication Dose Route Stop Time Status Admin Acetaminophen 650 MG Q6 01/18 1800 AC 01/19 PO 0550 Albuterol Sulfate 3 ML BID 01/19 1000 AC 01/19 INH 2014 Albuterol Sulfate 3 ML BID PRN 01/18 2300 AC INH Apixaban 5 MG BID 01/18 2200 AC 01/19 PO 2052 Bumetanide 4 MG 0800 & 1700 01/18 1700 AC 01/19 IV 1744 Diltiazem HCl 60 MG Q8 01/19 1400 AC 01/20 PO 0617 Diltiazem HCl 120 MG DAILY 01/19 1000 DC 01/19 PO 1002 Insulin Aspart 0 TIDAC 01/18 1700 AC 01/19 SC 1744 Insulin Detemir 25 UNITS DAILY 01/19 1000 AC 01/19 SC 1010 Losartan Potassium 50 MG DAILY 01/19 1000 AC 01/19 PO 1002 Metoprolol Tartrate 25 MG BID 01/18 2200 AC 01/19 PO 2052 Nystatin 1 JORDAN TID PRN 01/18 2300 AC 01/19 TOP 1349 Oxycodone HCl 5 MG Q8P PRN 01/18 1515 AC PO Oxycodone/ 1 TAB Q8P PRN 01/18 1515 AC Acetaminophen PO Potassium Chloride 20 MEQ DAILY 01/18 1456 AC 01/19 PO 1002 Theophylline 150 MG BID 01/18 2200 AC 01/19 PO 2052 Last 24 Hrs of Lab/Arturo Results Last 24 Hrs of Labs/Mics: Laboratory Tests 01/20/17 0715: Anion Gap 13, Estimated GFR 43 L, BUN/Creatinine Ratio 25.0, PT 18.3 H, INR 1.75 H Orders Radiology Findings: 1. Findings consistent with congestive heart failure, similar to prior exam. 2. Possible associated small left effusion or left basilar atelectasis. Assessment/Plan Assessment: 82 y/o F with PMHx of mitral stenosis s/p mitral valve replacement, paroxysmal atrial fibrillation on Eliquis and diastolic CHF who is admitted for acute on chronic diastolic CHF. #Acute decompensated CHF: Likely secondary to moderate stenosis of her bioprosthetic mitral valve. Remains on 4 L NC, significantly increased from her baseline of 2.5 L NC. CXR today with slightly increased opacity in the left lung base which could be artifactual or could represent small left effusion or left basilar atelectasis. Most recent ECHO in July 2016 with LVEF of 70%. * Cardiology following. Appreciate their recs. * Continue telemetry. * Continue Bumex 4 mg IV BID. * Continue prior to admission Losartan 50 mg PO daily. * Continue TRC and nebs. * Monitor I/Os and daily weights. * Repeat ECHO to evaluate for progression of mitral valvular disease. * CPAP with respiratory rate set at 8. * Discontinue theophylline. * Monitor BMP. * Provide supplemental oxygen as needed to keep SpO2 > 92%. #Paroxysmal atrial fibrillation: Heart rate continues to be elevated. * Continue Eliquis 5 mg PO BID. * Continue prior to admission metoprolol 25 mg PO BID. * Increase diltiazem to 90 mg PO BID. #Insulin-dependent T2DM: Blood sugars well-controlled. Taking glimepiride 2 mg PO BID, Glargine 25 units SQ daily and Lispro sliding scale TIDAC prior to admission. * Hold oral hypoglycemic agents while inpatient. * Continue long-acting insulin Levemir 25 units SQ daily. * Accu-checks and low dose sliding scale Novolog TIDAC. #CKD stage III: Creatinine 1.2 today. * Monitor BMP daily in the setting of IV diuresis. Diet: Consistent Carbohydrate 2 with 2 g Na Restriction DVT PPx: Eliquis and ALPs CODE: FULL Problem List: 1. Insulin dependent type 2 diabetes mellitus 2. Paroxysmal atrial fibrillation 3. Moderate mitral stenosis 4. History of mitral valve replacement with bioprosthetic valve 5. CKD (chronic kidney disease) stage 3, GFR 30-59 ml/min 6. Acute decompensated heart failure Pain Ratin Pain Location: N/A Pain Goal: Remain pain free Pain Plan: Tylenol 650 mg PO Q6H Tomorrow's Labs & Rationales: BMP to monitor lytes and kidney function in the setting of diuresis and CKD
[2017-01-20 08:16] LABS: PT 18.3 SEC (9.4-12.5)
[2017-01-20 08:49] VITALS: BP 120/90
--- NOTE | 2017-01-20 09:28 | Cons- Pulmonary ---
General Information and HPI Consulting Request Date of Consult: 01/20/17 Requested By: med team History of Present Illness: Ms. Han is a 82 y/o F with PMHx of mitral stenosis s/p mitral valve replacement, paroxysmal atrial fibrillation on Eliquis and diastolic CHF who presents with worsening shortness of breath and leg swelling x 3 days. Most of the history is obtained from patient's son who is at bedside. Patient has been having progressively worsening shortness of breath for the past 3 days. Shortness of breath is present even at rest on her baseline oxygen requirement of 2.5 L, increased to 3 L with ambulation. Patient has significant orthopnea at baseline and sleeps in a recliner. Patient has also noted increasing leg swelling at this time and her legs have become red and irritated. Patient takes 2 mg of PO Bumex 4 times per day at home, but for the past three days she has been taking an extra 2 mg per day prior to admission She denies significant weight change. She also denies chest pain, palpitations, fevers, chills, cough or abdominal pain. Of note patient has had multiple admissions to [facility] within the past year for CHF exacerbation. This morning she became acutely short of breath and tachycardic and a rapid response was called. When I saw her she was acutely short of breath and was tachycardic. O2 sat was 82% on room air. Oxygen was off. Her pedal edema per patient had improved. No chest pain at that time. Patient was subsequently put on facemask. No fever no chills. Review of Systems Constitutional: Denies: chills, fever. EENTM: Reports: no symptoms. Cardiovascular: Reports: peripheral edema. Denies: chest pain, palpitations. Respiratory: Reports: orthopnea, short of breath. Denies: cough. GI: Denies: abdominal pain, constipation, diarrhea, nausea, vomiting. Genitourinary: Reports: no symptoms. Musculoskeletal: Reports: no symptoms. Skin: Reports: no symptoms. Neurological/Psychological: Reports: no symptoms. Hematologic/Endocrine: Reports: no symptoms. Immunologic/Allergic: Reports: no symptoms. All Other Systems: Reviewed and Negative 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 Apixaban (Eliquis) 5 MG TABLET 1 TAB PO BID BLOOD THINNER (Reported) Bumetanide 1 MG TABLET 2 MG PO 4 TIMES/DAY heart failure Diltiazem Cd (Diltiazem ER) 120 MG CAP.ER.DEG 120 MG PO DAILY AFIB Ferrous Sulfate 325 MG TABLET 1 TAB PO BID SUPPLEMENT (Reported) Glimepiride (Amaryl) 2 MG TABLET 1 TAB PO BID DM (Reported) Insulin Glargine,Hum.rec.anlog (Toujeo Solostar) 300 UNIT/1 ML INSULN.PEN 25 U SC DAILY DIABETES (Reported) Insulin Lispro (Humalog Kwikpen U-100) 100 UNIT/1 ML INSULN.PEN DIABETES ( Reported) BEFORE MEALS Blood Insulin Sugar Units 151-200 1 201-250 2 251-300 3 301-350 4 351-400 5 >400 6 Call Doctor Losartan Potassium 50 MG TABLET 1 TAB PO DAILY high blood pressure Metoprolol Tartrate 25 MG TABLET 25 MG PO BID AFIB Potassium Chloride 20 MEQ TAB.ER.PRT 1 TAB PO DAILY K+ (Reported) Theophylline Anhydrous 300 MG TAB.ER.12H 0.5 TAB PO BID CSA (Reported) Review of Systems Review of Systems Constitutional: Reports: see HPI. Past History Travel History Traveled to [place] past 21 day No Medical History Blood Transfusion Hx: No Neurological: peripheral neuropathy EENT: NONE Cardiovascular: AFIB, CAD, diastolic CHF, hypertension, hyperlipidemia, myocardial infarction, mitral stenosis Respiratory: pneumonia, small lung nodules obesity hypoventilation syndrome Gastrointestinal: lower GI bleed, GI bleed Hepatic: NONE Renal: chronic kidney disease Psychiatric: NONE Endocrine: insulin-dependent type 2 diabetes mellitus Blood Disorders: anemia, DVT Cancer(s): breast cancer [employer]ULT[employer] F[employer]ER/Reproductive: fibroid Surgical History Surgical History: appendectomy, cholecystectomy, hernia repair-inguinal (right), hernia repair-ventral, hysterectomy, knee replacement (left ), lumpectomy (left breast), coil embolization of the hepatic flexure porcine mitral valve replacement maze procedure with ligation of the left atrial appendage incarcerated hernia repair Family History Relations & Conditions If Any: MOTHER Cardiomegaly FATHER FH: AL (myocardial infarction) FH: stroke BROTHER (valvular heart disease). Relation not specified for: FH: stroke Psychosocial History Where Do You Live? Home Who Do You Live With? self Services at Home: Nursing, Oxygen Primary Language: Greek Smoking Status: Former Smoker (Quit Smoking >40 Years Ago) ETOH Use: denies use Illicit Drug Use: denies illicit drug use Living Will? yes Functional Ability ADLs Independent: dressing, eating, toileting, bathing. Ambulation: cane, walker IADLs Independent: finances, telephone, medication admin. Needs Assist: shopping, housework, food prep, transportation. Exam & Diagnostic Data Last 24 Hrs of Vital Signs/I&O Vital Signs Date Time Temp Pulse Resp B/P Pulse O2 O2 Flow FiO2 Ox Delivery Rate 01/20 0922 96 BIPAP 35% 01/20 0911 130 98 01/20 0849 97.6 128 20 120/90 96 Nasal 4.0L Cannula 01/20 0617 105 130/68 01/20 0000 Nasal 4.0L Cannula 01/19 2350 98.0 63 20 116/84 95 Nasal 4.0L Cannula 01/19 2053 116 138/80 01/19 2053 116 138/80 01/20 2012 85 Nasal 3.0L Cannula 01/19 1635 97.7 48 20 134/53 90 Nasal 3.0L Cannula 01/19 1600 Nasal 4.0L Cannula 01/19 1348 101 140/80 01/19 1052 94 Nasal 3.0L Cannula 01/19 1002 133 140/90 01/19 1002 98.6 133 140/90 Intake & Output 01/20 1600 01/20 0800 01/20 0000 Intake Total 50 620 Output Total 200 1550 Balance -150 -930 Intake, IV 20 Intake, Oral 50 600 Output, Urine 200 1550 Last 48 Hrs of Labs/Arturo: Laboratory Tests 01/20/17 0925: Troponin I Pending 01/20/17 0715: Anion Gap 13, Estimated GFR 43 L, BUN/Creatinine Ratio 25.0, PT 18.3 H, INR 1.75 H 01/19/17 0856: Anion Gap 11, Estimated GFR 39 L, BUN/Creatinine Ratio 24.6 01/18/17 1646: Troponin I 0.03 01/18/17 1630: Urine Color YEL, Urine Clarity CLEAR, Urine pH 6.5, Ur Specific [place] 1.010, Urine Protein TRACE H, Urine Ketones NEG, Urine Nitrite NEG, Urine Bilirubin NEG, Urine Urobilinogen 0.2, Ur Leukocyte Esterase NEG, Ur Microscopic SEDIMENT EXAMINED, Urine RBC RARE, Ur Epithelial Cells FEW, Urine Bacteria MANY H, Urine Hemoglobin TRACE-INTACT, Urine Glucose NEG 01/18/17 1029: pH 7.46 H, pCO2 40, pO2 57 L, HCO3 27, ABG O2 Sat (Measured) 89.0 L, Carboxyhemoglobin 1.3 L, O2 Concentration % 3L, O2 Delivery Method N/C, Phlebotomy Draw Site LEFT RADIAL 01/18/17 1021: Anion Gap 14, Estimated GFR 39 L, BUN/Creatinine Ratio 30.0 H, Glucose 180 H, Calcium 9.7, Total Bilirubin 0.7, AST 18, ALT 29, Alkaline Phosphatase 63, Troponin I 0.04, Dpl-N-Oyfboxnpptb Pept 3980 H, Total Protein 7.7, Albumin 3.7, Globulin 4.0, Albumin/Globulin Ratio 0.9 L, PT 19.4 H, INR 1.86 H, APTT 31, CBC w Diff NO MAN DIFF REQ, RBC 4.08 L, MCV 93.1, MCH 30.0, RDW 19.6 H, MPV 8.2, Gran % 81.0 H, Lymphocytes % 9.0 L, Monocytes % 7.9, Eosinophils % 1.8, Basophils % 0.3, Absolute Granulocytes 6.5, Absolute Lymphocytes 0.7 L, Absolute Monocytes 0.6, Absolute Eosinophils 0.1, Absolute Basophils 0, PUBS MCHC 32.2 L Assessment/Plan Impression/Plan: Physical Exam General Appearance Alert, Oriented X3, in acute distress HEENT Atraumatic, Mucous Membr. moist/pink Neck Supple Cardiovascular irregular rhythm heart rate was elevated Lungs Diminished Breath Sounds, Bibasilar Crackles Abdomen Soft, No Tenderness, Positive Bowel Sounds Extremities No Clubbing, No Cyanosis, 3+ Pitting Edema on Bilateral Lower Extremities Patient was tachypneic and anxious 81-year-old female with history of atrial fibrillation and atrial flutter, presenting with shortness of breath, orthopnea, and lower some edema. The presentation is suggestive of acute on chronic diastolic heart failure, Previous MVR (Mercado porcine) Her issues include * Acute hypoxic resp failure due to heart failure and sig lung disease aswell compounding the issue * Acute on chronic diastolic heart failure, with ongoing hypoxia * Chronic compensated hypoxic and hypercarbic resp failure due to chf and underlying obesity hypoventilation syndrome, Prob has a component of copd aswell , this is complicated by significant heart failure due to valvular heart disease. No sig copde, * Significant valvular heart disease (previous mvr) with mitral stenosis and probable aortic stenosis, * Chronic respiratory failure, per pts wishes she does not want cpap on a regular basis * Hypertension * Acute on chronic kidney disease stage III * Type 2 diabetes * Small airway disease with recurrent bronchiolitis * Previous history of small lung nodules stable REC COnt diuresis Rate control USe CPAP of 8 for chf for now COnt all meds HOld theophylline for now Cxr today cont low dose betablocker WIll follow Consult Acknowledgment - Thank you for your consult request.
--- NOTE | 2017-01-20 09:33 | PN- Cardiology ---
Subjective Subjective: * Patient complains of shortness of breath and desaturated when her supplemental oxygen was off. No other complaints. * atrial fibrillation iwth increased heart rate * creatinine 1.2 Objective Vital Signs and I&Os Vital Signs Date Time Temp Pulse Resp B/P Pulse O2 O2 Flow FiO2 Ox Delivery Rate 01/20 0911 130 98 01/20 0849 97.6 128 20 120/90 96 Nasal 4.0L Cannula 01/20 0617 105 130/68 01/20 0000 Nasal 4.0L Cannula 01/19 2350 98.0 63 20 116/84 95 Nasal 4.0L Cannula 01/19 2053 116 138/80 01/19 2053 116 138/80 01/20 2012 85 Nasal 3.0L Cannula 01/19 1635 97.7 48 20 134/53 90 Nasal 3.0L Cannula 01/19 1600 Nasal 4.0L Cannula 01/19 1348 101 140/80 01/19 1052 94 Nasal 3.0L Cannula 01/19 1002 133 140/90 01/19 1002 98.6 133 140/90 Intake & Output 01/20 1600 01/20 0800 01/20 0000 01/19 1600 01/19 0800 01/19 0000 Intake Total 50 620 240 100 610 Output Total 200 1550 979 074 9104 Balance -150 -930 -560 -500 -890 Intake, IV 20 10 Intake, Oral 50 600 240 100 600 Number 1 Bowel Movements Output, Urine 200 [phone] Patient 221 lb Weight Physical Exam: General: WD/ obese female in NAD; alert and oriented x 3 Neck: no JVD, no carotid bruit Heart: irregularly irregular with 3/6 systolic murmur Lungs: no crackles or wheezing EXtremtieis: 1+ leg edema bilaterally superimposed on chronic lymphedema Assessment/Plan Assessment/Plan * This patient has moderate stenosis of her bioprosthetic mitral valve. In that setting she has decompensated CHF and atrial fibrillation. Her right heart failure is minimal and it should be noted that this patient has had very large legs with chronic lymphedema for decades. This patient also has COPD and obesity hypoventilation syndrome. Continue BIPAP and diurese with Bumex 4mg IV BID. Follow her BUN, creatinine and potassium. * Atrial fibrillation. This rhythm tends to be poorly tolerated in the setting of mitral stenosis. Repeat and echocardiogram to assess for progression of her mitral valvular disease. Increase Cardizem to 90mg PO BID. Continue Metoprolol 25mg BID and continue Eliquis for stroke prophylaxis. Continue telemetry? Yes
--- NOTE | 2017-01-20 11:00 | PN- Student ---
Subjective Subjective: Medical Student Daily Progress Note: Ira Han is an 82yo F with PMH significant for mitral stenosis s/p valve replacement, paroxysmal atrial fibrillation on apixaban, and diastolic CHF who presented to the ED on 01/18/17 for a 3 day history of worsening SOB and leg swelling. She is on 2.5L of oxygen at baseline and was requiring up to 4L at the time of presentation. Since admission, she states she has been feeling better. Her SOB had been improving, but this morning (01/20/17) a rapid response was called for acute respiratory distress. The patient's nasal cannula had somehow been removed (she does not recall how), resulting in desaturation and distress. She was placed on BIPAP at that time. She states she does not notice a change in her BLE edema. She denies headache, dizziness, CP, fever, abdominal pain, flank pain, dysuria, or new or worsening swelling. Current Medications Sig/Andrei Start time Last Medication Dose Route Stop Time Status Admin Acetaminophen 650 MG Q6 01/18 1800 AC 01/19 PO 0550 Albuterol Sulfate 3 ML BID 01/19 1000 AC 01/20 INH 0921 Albuterol Sulfate 3 ML BID PRN 01/18 2300 AC INH Apixaban 5 MG BID 01/18 2200 AC 01/20 PO 0943 Bumetanide 4 MG 0800 & 1700 01/18 1700 AC 01/20 IV 0932 Diltiazem HCl 60 MG Q8 01/19 1400 AC 01/20 PO 0617 Diltiazem HCl 120 MG DAILY 01/19 1000 DC 01/19 PO 1002 Insulin Aspart 0 TIDAC 01/18 1700 AC 01/19 SC 1744 Insulin Detemir 25 UNITS DAILY 01/19 1000 AC 01/20 SC 0938 Losartan Potassium 50 MG DAILY 01/19 1000 AC 01/20 PO 0944 Metoprolol Tartrate 25 MG BID 01/18 2200 AC 01/20 PO 0943 Nystatin 1 JORDAN TID PRN 01/18 2300 AC 01/19 TOP 1349 Oxycodone HCl 5 MG Q8P PRN 01/18 1515 AC PO Oxycodone/ 1 TAB Q8P PRN 01/18 1515 AC Acetaminophen PO Potassium Chloride 20 MEQ DAILY 01/18 1456 AC 01/20 PO 0943 Theophylline 150 MG BID 04/15 2200 DC 01/20 PO 0944 Objective Objective: Vital Signs Date Time Temp Pulse Resp B/P Pulse O2 O2 Flow FiO2 Ox Delivery Rate 01/20 0944 97.6 109 20 136/72 01/20 0943 109 136/72 01/20 0922 96 BIPAP 35% 01/20 0911 130 98 01/20 0849 97.6 128 20 120/90 96 Nasal 4.0L Cannula 01/20 0617 105 130/68 01/20 0000 Nasal 4.0L Cannula 01/19 2350 98.0 63 20 116/84 95 Nasal 4.0L Cannula 01/19 2053 116 138/80 01/19 2053 116 138/80 01/20 2012 85 Nasal 3.0L Cannula 01/19 1635 97.7 48 20 134/53 90 Nasal 3.0L Cannula 01/19 1600 Nasal 4.0L Cannula 01/19 1348 101 140/80 Intake & Output 01/20 1600 01/20 0800 01/20 0000 Intake Total 50 620 Output Total 200 1550 Balance -150 -930 Intake, IV 20 Intake, Oral 50 600 Output, Urine 200 1550 Telemetry: Atrial fibrillation to atrial flutter. Rate 64 - 112 bpm. At approximtely 2130 on 01/19/17, the patient's HR was in the 130's with PVCs, couplets, and bigeminy with some pacing. General: mild distress, anxious. Neuro: A&O x3 CV: S1, S2. irregular and tachycardic. Systolic ejection murmur. Pulmonary: fine bibasilar crackles, occasional mild expiratory wheezing. GI: abdomen soft, non tender. bowel sounds present and normoactive. Extremities: warm. Chronic stasis evident in BLE. Right fiore has small healing wound. Results Results: Laboratory Tests 01/20/17 0925: Troponin I 0.03 01/20/17 0715: Anion Gap 13, Estimated GFR 43 L, BUN/Creatinine Ratio 25.0, PT 18.3 H, INR 1.75 H Microbiology 01/18 1630 URINE ROUT: Urine Culture - RES GRAM POSITIVE COCCI Assessment/Plan Assessment: Ira Han is an 82yo F with PMH significant for mitral stenosis s/p valve replacement, paroxysmal atrial fibrillation on apixaban, and diastolic CHF who was admitted for CHF exacerbation. Plan: CHF exacerbation: pro-BNP on admission was 3980. EF is preserved at 70% per Echo in 07/2016. Patient's oxygen had increased from 2.5L baseline to 4L NC on admission. Had acute respiratory distress this morning after nasal cannula had somehow been removed. Now requiring BIPAP. * Continue telemetry monitoring * Continue Bumex 4mg IV BID * Strict I&O, daily weight * Cardiology following * Continue BIPAP until respiratory status improved * Continue vital signs monitoring * Continue Bumex Paroxysmal Atrial Fibrillation: is on Cardizem and Apixaban as outpatient with reasonable control. Has had rapid rate since admission. * Cardizem changed yesterday (01/19/17) to 60mg q8h for better rate control * Continue Apixaban for anticoagulation * Continue telemetry monitoring. Cardiology following Insulin Dependent DM type 2: chronic in nature. Glucose has been as high as 267 mg/dL on this admission. Lowest is 123 mg/dL. * Continue low dose SSI. Consider increase if glucose trends up or remains elevated * Continue Long acting insulin at bedtime * Educate on lifestyle choices and changes Code Status: Full Diet: Carb Control + CHF DVT prophylaxis: Apixaban * Contniue Long acting insulin at bedtime * Educate on lifestyle choices and changes Code Status: Full Diet: Carb Control
--- NOTE | 2017-01-20 14:28 | RADIOLOGY REPORT ---
EXAMINATION: XR PORTABLE CHEST CLINICAL INFORMATION: Admitted for CHF exacerbation. Increasing oxygen requirement and shortness of breath. Evaluate for volume overload in the setting of CHF. COMPARISON: Several prior chest x-rays, most recent of which is dated 01/18/2017. TECHNIQUE: Portable AP semierect view of the chest was obtained. FINDINGS: The patient is status post median sternotomy and mitral annular repair. Right atrial and right ventricular pacer leads are in place, unchanged. Cardiomediastinal silhouette is enlarged. Calcification and ectasia of the aorta is seen. As noted previously, diffuse pulmonary edema is present, appearing similar to the previous exam. There is slightly increased opacity noted in the left lung base with now obscuration of the left hemidiaphragm. This may be related to technical factors though a subtle effusion or left basilar atelectatic change cannot be excluded. No pneumothorax is seen. Bony structures are grossly unremarkable. IMPRESSION: 1. Findings consistent with congestive heart failure, similar to prior exam. 2. Possible associated small left effusion or left basilar atelectasis.
--- NOTE | 2017-01-20 15:13 | NUR ---
0925 - RAPID RESPONSE CALLED AT 0900 BY [facility]. THIS NURSE ENTERED ROOM TO FIND PATIENT IN DISTRESS AND EXPERIENCING SHORTNESS OF BREATH. PATIENT NASAL CANNULA WAS NOT IN PLACE AND PATIENT DID NOT REMEMBER HOW IT WAS DISPLACED. VITALS - PT ON RM AIR AND DESATURATED, O2 IN THE 60'S, HR 132, BP 136/72, MD MARYANN CHOI AND RESPIRATORY THERAPIST AT BEDSIDE. PATIENT WAS PLACED ON BIPAP. AT THIS TIME, 0925, PT ALERT AND ORIENTED X 3 SPO2 96 ON BIPAP, RR 20, THIS NURSE WILL CONTINUE TO MONITOR PATIENT.
[2017-01-20 15:58] VITALS: BP 108/70
[2017-01-20 23:00] VITALS: BP 118/60
--- NOTE | 2017-01-21 07:06 | PN- Housestaff ---
Subjective Follow-up For: Acute decompensated CHF Tele-Events Since Last Visit: Atrial flutter HR 87-98 No events Subjective: No acute events overnight. Patient seen and examined this morning. She feels much better today. Her breathing has significantly improved. She remains on 4 L NC. She is interested in going to [facility]. Review of Systems Constitutional: Reports: see HPI. Objective Last 24 Hrs of Vital Signs/I&O Vital Signs Date Time Temp Pulse Resp B/P Pulse O2 O2 Flow FiO2 Ox Delivery Rate 01/21 0000 Nasal 4.0L Cannula 01/20 2300 98.2 98 22 118/60 92 Nasal 4.0L Cannula 01/20 2130 130 118/60 01/20 2130 130 118/60 01/20 1730 62 97 01/20 1600 Nasal 3.0L Cannula 01/20 1558 97.9 85 20 108/70 98 BIPAP 4.0L 01/20 1306 76 91 01/20 1205 110 90 01/20 0922 96 BIPAP 35% 01/20 0911 130 98 01/20 0849 97.6 128 20 120/90 96 Nasal 4.0L Cannula 01/20 0800 Nasal 4.0L Cannula Intake & Output 01/21 0800 01/21 0000 01/20 1600 Intake Total 200 350 Output Total 450 1850 1000 Balance -250 -1500 -1000 Intake, IV 0 0 Intake, Oral 200 350 Number 0 1 Bowel Movements Output, Urine 450 1850 1000 Patient 99.45 kg Weight Physical Exam General Appearance: Alert, Oriented X3, No Acute Distress HEENT: Atraumatic, Mucous Membr. moist/pink Neck: Supple Cardiovascular: Normal S1, Normal S2, Irregular Rate Lungs: Diminished Breath Sounds Abdomen: Soft, No Tenderness, Positive Bowel Sounds Extremities: No Clubbing, No Cyanosis, Chronic Lymphedema Current Medications: Current Medications Sig/Andrei Start time Last Medication Dose Route Stop Time Status Admin Acetaminophen 650 MG Q6 01/18 1800 AC 01/19 PO 0550 Albuterol Sulfate 3 ML BID 01/19 1000 AC 01/20 INH 2109 Albuterol Sulfate 3 ML BID PRN 01/18 2300 AC INH Apixaban 5 MG BID 01/18 2200 AC 01/20 PO 2130 Bumetanide 4 MG 0800 & 1700 01/18 1700 AC 01/20 IV 1818 Diltiazem HCl 90 MG BID 01/20 2200 AC 01/20 PO 2130 Diltiazem HCl 60 MG Q8 01/19 1400 DC 01/20 PO 0617 Insulin Aspart 0 TIDAC 01/18 1700 AC 01/20 SC 1805 Insulin Detemir 25 UNITS DAILY 01/19 1000 AC 01/20 SC 0938 Losartan Potassium 50 MG DAILY 01/19 1000 AC 01/20 PO 0944 Metoprolol Tartrate 25 MG BID 01/18 2200 AC 01/20 PO 2130 Nystatin 1 JORDAN TID PRN 01/18 2300 AC 01/19 TOP 1349 Oxycodone HCl 5 MG Q8P PRN 01/18 1515 AC PO Oxycodone/ 1 TAB Q8P PRN 01/18 1515 AC Acetaminophen PO Potassium Chloride 20 MEQ DAILY 01/18 1456 AC 01/20 PO 0943 Theophylline 150 MG BID 01/18 2200 DC 01/20 PO 0944 Last 24 Hrs of Lab/Arturo Results Last 24 Hrs of Labs/Mics: Laboratory Tests 01/21 0625 Chemistry Sodium (137 - 145 mmol/L) 144 Potassium (3.5 - 5.1 mmol/L) 4.3 Chloride (98 - 107 mmol/L) 98 Carbon Dioxide (22 - 30 mmol/L) 37 H Anion Gap (5 - 16) 9 BUN (7 - 17 mg/dL) 30 H Creatinine (0.5 - 1.0 mg/dL) 1.3 H Estimated GFR (>60 ml/min) 39 L BUN/Creatinine Ratio (7 - 25 %) 23.1 Assessment/Plan Assessment: 82 y/o F with PMHx of mitral stenosis s/p mitral valve replacement, paroxysmal atrial fibrillation on Eliquis and diastolic CHF who is admitted for acute decompensated CHF. #Acute on chronic HFpEF: Likely secondary to moderate stenosis of her bioprosthetic mitral valve. Remains on 4 L NC, significantly increased from her baseline of 2.5-3 L NC. Most recent ECHO in July 2016 with LVEF of 70%. * Cardiology and pulmonology following. Appreciate their recs. * Continue telemetry. * Continue Bumex 4 mg IV BID. * Continue prior to admission Losartan 50 mg PO daily. * Continue TRC and nebs. * Continue to monitor I/Os, daily weights and BMP. * ECHO pending. * CPAP with respiratory rate set at 8. * Theophylline discontinued. * Wean down oxygen as tolerated. #Paroxysmal atrial fibrillation: Heart rate better-controlled today. * Continue Eliquis 5 mg PO BID. * Continue prior to admission metoprolol 25 mg PO BID. * Continue diltiazem 90 mg PO BID. #Insulin-dependent T2DM: Blood sugars well-controlled. Taking glimepiride 2 mg PO BID, Glargine 25 units SQ daily and Lispro sliding scale TIDAC prior to admission. * Hold oral hypoglycemic agents while inpatient. * Continue long-acting insulin Levemir 25 units SQ daily. * Accu-checks and low dose sliding scale Novolog TIDAC. Diet: Consistent Carbohydrate 2 with 2 g Na Restriction DVT PPx: Eliquis and ALPs CODE: FULL Problem List: 1. Acute decompensated heart failure 2. Moderate mitral stenosis 3. Paroxysmal atrial fibrillation 4. Insulin dependent type 2 diabetes mellitus 5. (HFpEF) heart failure with preserved ejection fraction Pain Ratin Pain Location: N/A Pain Goal: Remain pain free Pain Plan: Tylenol 650 mg PO Q6H Tomorrow's Labs & Rationales: BMP to monitor lytes and kidney function in the setting of diuresis and CKD Discharge Plan Discharge Disposition: STR/NH Anticipated Discharge (Day): tomorrow
[2017-01-21 08:00] VITALS: BP 128/60
--- NOTE | 2017-01-21 08:38 | PN- Student ---
Subjective Subjective: Medical Student Daily Progress Note: Ira Han is a 82 yo F with a PMH of mitral stenosis s/p valve replacement (porcine), paroxysmal atrial fibrillation on apixaban, diastolic CHF , and insulin dependent type 2 DM, who was admitted on 01/18/17 with a 3 day history of worsening SOB and BLE edema, suggestive of CHF exacerbation. She had no acute events overnight. She was weaned from bipap to 4L NC yesterday afternoon and states her breathing feels "fine." She denies CP, dyspnea, headache, nausea vomiting, dysuria, and flank pain. Current Medications Sig/Andrei Start time Last Medication Dose Route Stop Time Status Admin Acetaminophen 650 MG Q6 01/18 1800 AC 01/19 PO 0550 Albuterol Sulfate 3 ML BID 01/19 1000 AC 01/20 INH 2109 Albuterol Sulfate 3 ML BID PRN 01/18 2300 AC INH Apixaban 5 MG BID 01/18 2200 AC 01/20 PO 2130 Bumetanide 4 MG 0800 & 1700 01/18 1700 AC 01/20 IV 1818 Diltiazem HCl 90 MG BID 01/20 2200 AC 01/20 PO 2130 Diltiazem HCl 60 MG Q8 01/19 1400 DC 01/20 PO 0617 Insulin Aspart 0 TIDAC 01/18 1700 AC 01/20 SC 1805 Insulin Detemir 25 UNITS DAILY 01/19 1000 AC 01/20 SC 0938 Losartan Potassium 50 MG DAILY 01/19 1000 AC 01/20 PO 0944 Metoprolol Tartrate 25 MG BID 01/18 2200 AC 01/20 PO 2130 Nystatin 1 JORDAN TID PRN 01/18 2300 AC 01/19 TOP 1349 Oxycodone HCl 5 MG Q8P PRN 01/18 1515 AC PO Oxycodone/ 1 TAB Q8P PRN 01/18 1515 AC Acetaminophen PO Potassium Chloride 20 MEQ DAILY 01/18 1456 AC 01/20 PO 0943 Theophylline 150 MG BID 01/18 2200 DC 01/20 PO 0944 Objective Objective: Vital Signs Date Time Temp Pulse Resp B/P Pulse O2 O2 Flow FiO2 Ox Delivery Rate 01/21 0000 Nasal 4.0L Cannula 01/20 2300 98.2 98 22 118/60 92 Nasal 4.0L Cannula 01/20 2130 130 118/60 04/17 2130 130 118/60 01/20 1730 62 97 01/20 1600 Nasal 3.0L Cannula 01/20 1558 97.9 85 20 108/70 98 BIPAP 4.0L 01/20 1306 76 91 01/20 1205 110 90 01/20 0922 96 BIPAP 35% 01/20 0911 130 98 01/20 0849 97.6 128 20 120/90 96 Nasal 4.0L Cannula Intake & Output 01/21 1600 01/21 0800 01/21 0000 Intake Total 200 350 Output Total 450 1850 Balance -250 -1500 Intake, IV 0 0 Intake, Oral 200 350 Number 0 1 Bowel Movements Output, Urine 450 1850 Patient 219 lb Weight Telemetry: Atrial Flutter, 87 - 98 bpm. No events. General: comfortable, resting in chair Neuro: A&O x3, moves all extremities spontaneously CV: irregular. systolic ejection murmur Pulmonary: bibasilar crackles improving GI: abdomen soft and non tender Extremities: BLE edema slightly improving, although chronic in nature. compartments soft. healing wound on right fiore Results Results: Laboratory Tests Microbiology Date/Time Procedure - Status Source Growth 01/18 1630 Urine Culture - COMP URINE ROUT ENTEROCOCCUS Assessment/Plan Assessment: Ms. Han is an 82 yo F with PMH of mitral stenosis s/p porcine valve replacement, paroxysmal atrial fibrillation on apixaban, diastolic CHF, and insulin dependent type 2 DM who presented on 01/18/17 for acute CHF exacerbation. Plan: CHF exacerbation: Has established diastolic CHF with EF of 70% in 07/2016. pro- BNP on admission was 3980; admission CXR was consistent with CHF exacerbation. Had increasing oxygen demands from baseline with acute respiratory distress on . * Continue Bumex 4mg IV BID * Cardiology and Pulmonary following * Wean NC as tolerated to achieve previous baseline of 2.5L * Continue Metoprolol 25mg BID, Losartan 50mg daily per home regimen Paroxysmal Atrial Fibrillation: chronic. Managed with Cardizem and Apixaban. * Continue Cardizem 60mg TID for rate control * Continue Apixaban 5mg BID for anticoagulation * Cardiology following Insulin Dependent Type 2 DM: Patient takes low dose SSI with meals and long acting insulin at bedtime at home with reasonable control. Blood sugar has been controlled since admission with equivalent dosing. * Continue low dose SSI with meals * Continue long acting insulin at bed time * Consider increasing SSI if glucose trends up Positive Urine Culture: Urine sent from ED on admission was positive for GPC, later identified as sensitive Enterococcus. Patient is asymptomatic (no dysuria, no fever, no chills, no flank pain, no cloudy or foul smelling urine) * Asymptomatic bacteriuria * Will not treat unless patient develops s/s of UTI Code Status: Full Diet: Carb Control + CHF DVT prophylaxis: Apixaban
--- NOTE | 2017-01-21 08:55 | PN- Pulmonary ---
Subjective HPI/Critical Care Issues: She had no acute events overnight. She was weaned from bipap to 4L NC yesterday afternoon and states her breathing feels "fine." She denies CP, dyspnea, headache, nausea vomiting, dysuria, and flank pain. She feels much better today. Her breating has significantly improved. She is interested in going to [facility]. Objective Current Medications: Current Medications Sig/Andrei Start time Last Medication Dose Route Stop Time Status Admin Acetaminophen 650 MG Q6 01/18 1800 AC 01/19 PO 0550 Albuterol Sulfate 3 ML BID 01/19 1000 AC 01/20 INH 2109 Albuterol Sulfate 3 ML BID PRN 01/18 2300 AC INH Apixaban 5 MG BID 01/18 2200 AC 01/20 PO 2130 Bumetanide 4 MG 0800 & 1700 01/18 1700 AC 01/20 IV 1818 Diltiazem HCl 90 MG BID 01/20 2200 AC 01/20 PO 2130 Diltiazem HCl 60 MG Q8 01/19 1400 DC 01/20 PO 0617 Insulin Aspart 0 TIDAC 01/18 1700 AC 01/20 SC 1805 Insulin Detemir 25 UNITS DAILY 01/19 1000 AC 01/20 SC 0938 Losartan Potassium 50 MG DAILY 01/19 1000 AC 01/20 PO 0944 Metoprolol Tartrate 25 MG BID 01/18 2200 AC 01/20 PO 2130 Nystatin 1 JORDAN TID PRN 01/18 2300 AC 01/19 TOP 1349 Oxycodone HCl 5 MG Q8P PRN 01/18 1515 AC PO Oxycodone/ 1 TAB Q8P PRN 01/18 1515 AC Acetaminophen PO Potassium Chloride 20 MEQ DAILY 01/18 1456 AC 01/20 PO 0943 Theophylline 150 MG BID 01/18 2200 DC 01/20 PO 0944 Vital Signs & I&O Last 24 Hrs of Vitals and I&O: Vital Signs Date Time Temp Pulse Resp B/P Pulse O2 O2 Flow FiO2 Ox Delivery Rate 01/21 0000 Nasal 4.0L Cannula 01/20 2300 98.2 98 22 118/60 92 Nasal 4.0L Cannula 01/200 130 118/60 01/20 2130 130 118/60 01/20 1730 62 97 01/20 1600 Nasal 3.0L Cannula 01/20 1558 97.9 85 20 108/70 98 BIPAP 4.0L 01/20 1306 76 91 01/20 1205 110 90 01/20 0922 96 BIPAP 35% 01/20 0911 130 98 Intake & Output 01/21 1600 01/21 0800 01/21 0000 Intake Total 200 350 Output Total 450 1850 Balance -250 -1500 Intake, IV 0 0 Intake, Oral 200 350 Number 0 1 Bowel Movements Output, Urine 450 1850 Patient 219 lb Weight Impression/Plan Impression/Plan Impression/Plan: Physical Exam General Appearance Alert, Oriented X3, in acute distress HEENT Atraumatic, Mucous Membr. moist/pink Neck Supple Cardiovascular irregular rhythm heart rate was elevated Lungs Diminished Breath Sounds, Bibasilar Crackles Abdomen Soft, No Tenderness, Positive Bowel Sounds Extremities No Clubbing, No Cyanosis, 3+ Pitting Edema on Bilateral Lower Extremities Patient was tachypneic and anxious 81-year-old female with history of atrial fibrillation and atrial flutter, presenting with shortness of breath, orthopnea, and lower some edema. The presentation is suggestive of acute on chronic diastolic heart failure, Previous MVR ([place] porcine) Her issues include * Resolved Acute hypoxic resp failure due to heart failure and sig lung disease aswell compounding the issue * Acute on chronic diastolic heart failure, with ongoing hypoxia improving * Chronic compensated hypoxic and hypercarbic resp failure due to chf and underlying obesity hypoventilation syndrome, Prob has a component of copd aswell , this is complicated by significant heart failure due to valvular heart disease. No sig copde, * Significant valvular heart disease (previous mvr) with mitral stenosis and probable aortic stenosis, * Chronic respiratory failure, per pts wishes she does not want cpap on a regular basis * Hypertension * Acute on chronic kidney disease stage III * Type 2 diabetes * Small airway disease with recurrent bronchiolitis * Previous history of small lung nodules stable REC COnt diuresis Rate control for afib prn cpap or bipap for chf at hs if cuauhtemoc COnt all meds dc theophylline cont low dose betablocker WIll follow, ok to dc
--- NOTE | 2017-01-21 09:24 | PN- Att Addend ---
Attending Addendum Attending Brief Note Patient reports improved breathing however she remains on 4 L of oxygen General Appearance: Alert, No Acute Distress Skin: Grossly normal HEENT: PEERLA Neck: Supple, No JVD Cardiovascular: Irregular rhythm Lungs: Clear to Auscultation, Normal Air Movement Abdomen: Normal Bowel Sounds, Soft, No Tenderness Neurological: Normal Speech, Strength at 5/5 X4 Ext, Cranial Nerves 3-12 NL, Reflexes 2+ Extremities: 2+ pedal edema Vascular: Normal Pulses Assessment She is about 5 L negative. Kidney functions are stable. We'll continue diuresis and taper oxygen as tolerated. Enterococcus in the urine likely colonization Plan Continue diuresis Follow off antibiotics Taper oxygen for saturation above 92% Ambulate patient PT evaluation Continue other cardiac meds and insulin Current Medications Sig/Andrei Start time Last Medication Dose Route Stop Time Status Admin Acetaminophen 650 MG Q6 01/18 1800 AC 01/19 PO 0550 Albuterol Sulfate 3 ML BID 01/19 1000 AC 01/20 INH 2109 Albuterol Sulfate 3 ML BID PRN 01/18 2300 AC INH Apixaban 5 MG BID 01/18 2200 AC 01/20 PO 2130 Bumetanide 4 MG 0800 & 1700 01/18 1700 AC 01/20 IV 1818 Diltiazem HCl 90 MG BID 01/20 2200 AC 01/20 PO 2130 Diltiazem HCl 60 MG Q8 01/19 1400 DC 01/20 PO 0617 Insulin Aspart 0 TIDAC 01/18 1700 AC 01/20 SC 1805 Insulin Detemir 25 UNITS DAILY 01/19 1000 AC 01/20 SC 0938 Losartan Potassium 50 MG DAILY 01/19 1000 AC 01/20 PO 0944 Metoprolol Tartrate 25 MG BID 01/18 2200 AC 01/20 PO 2130 Nystatin 1 JORDAN TID PRN 01/18 2300 AC 01/19 TOP 1349 Oxycodone HCl 5 MG Q8P PRN 01/18 1515 AC PO Oxycodone/ 1 TAB Q8P PRN 01/18 1515 AC Acetaminophen PO Potassium Chloride 20 MEQ DAILY 01/18 1456 AC 01/20 PO 0943 Theophylline 150 MG BID 01/18 2200 DC 01/20 PO 0944 Laboratory Tests 01/21 01/20 0625 0925 Chemistry Sodium (137 - 145 mmol/L) 144 Potassium (3.5 - 5.1 mmol/L) 4.3 Chloride (98 - 107 mmol/L) 98 Carbon Dioxide (22 - 30 mmol/L) 37 H Anion Gap (5 - 16) 9 BUN (7 - 17 mg/dL) 30 H Creatinine (0.5 - 1.0 mg/dL) 1.3 H Estimated GFR (>60 ml/min) 39 L BUN/Creatinine Ratio (7 - 25 %) 23.1 Troponin I (< 0.11 ng/ml) 0.03 Vital Signs Date Time Temp Pulse Resp B/P Pulse O2 O2 Flow FiO2 Ox Delivery Rate 01/21 0000 Nasal 4.0L Cannula 01/20 2300 98.2 98 22 118/60 92 Nasal 4.0L Cannula 01/20 2130 130 118/60 01/20 2130 130 118/60 01/20 1730 62 97 01/20 1600 Nasal 3.0L Cannula 01/20 1558 97.9 85 20 108/70 98 BIPAP 4.0L 01/20 1306 76 91 01/20 1205 110 90
--- NOTE | 2017-01-21 10:12 | Discharge Summary ---
Visit Information Visit Dates Admission Date: 01/18/17 Discharge Date: 01/23/2017 Hospital Course Course Attending Physician: EM PONCE MD Primary Care Physician: EM PONCE MD Hospital Course: Ms. Han is a 82 y/o F with PMHx of mitral stenosis s/p mitral valve replacement, paroxysmal atrial fibrillation on Eliquis and diastolic CHF who presents with worsening shortness of breath and leg swelling x 3 days. Patient has been having progressively worsening shortness of breath for the past 3 days. Shortness of breath is present even at rest on her baseline oxygen requirement of 2.5 L, increased to 3 L with ambulation. Patient has significant orthopnea at baseline and sleeps in a recliner. Patient has also noted increasing leg swelling at this time and her legs have become red and irritated. Of note patient has had multiple admissions to [facility] within the past year for CHF exacerbation. Physical Exam General Appearance Alert, Oriented X3, No Acute Distress HEENT Atraumatic, Mucous Membr. moist/pink Neck Supple Cardiovascular Regular Rate, Normal S1, Normal S2 Lungs Diminished Breath Sounds, Bibasilar Crackles Abdomen Soft, No Tenderness, Positive Bowel Sounds Extremities No Clubbing, No Cyanosis, 3+ Pitting Edema on Bilateral Lower Extremities Last 24 Hrs of Labs/Arturo: Laboratory Tests 01/18/17 1646: Troponin I 0.03 01/18/17 1630: Urine Color YEL, Urine Clarity CLEAR, Urine pH 6.5, Ur Specific [place] 1.010, Urine Protein TRACE H, Urine Ketones NEG, Urine Nitrite NEG, Urine Bilirubin NEG, Urine Urobilinogen 0.2, Ur Leukocyte Esterase NEG, Ur Microscopic SEDIMENT EXAMINED, Urine RBC RARE, Ur Epithelial Cells FEW, Urine Bacteria MANY H, Urine Hemoglobin TRACE-INTACT, Urine Glucose NEG 01/18/17 1029: pH 7.46 H, pCO2 40, pO2 57 L, HCO3 27, ABG O2 Sat (Measured) 89.0 L, Carboxyhemoglobin 1.3 L, O2 Concentration % 3L, O2 Delivery Method N/C, Phlebotomy Draw Site LEFT RADIAL 01/18/17 1021: Anion Gap 14, Estimated GFR 39 L, BUN/Creatinine Ratio 30.0 H, Glucose 180 H, Calcium 9.7, Total Bilirubin 0.7, AST 18, ALT 29, Alkaline Phosphatase 63, Troponin I 0.04, Vny-A-Bxfkwhuvpnb Pept 3980 H, Total Protein 7.7, Albumin 3.7, Globulin 4.0, Albumin/Globulin Ratio 0.9 L, PT 19.4 H, INR 1.86 H, APTT 31, CBC w Diff NO MAN DIFF REQ, RBC 4.08 L, MCV 93.1, MCH 30.0, RDW 19.6 H, MPV 8.2, Gran % 81.0 H, Lymphocytes % 9.0 L, Monocytes % 7.9, Eosinophils % 1.8, Basophils % 0.3, Absolute Granulocytes 6.5, Absolute Lymphocytes 0.7 L, Absolute Monocytes 0.6, Absolute Eosinophils 0.1, Absolute Basophils 0, PUBS MCHC 32.2 L EKG Results Atrial fibrillation HR 102 QTc 516 CXR Results Cardiomegaly with CHF and probable interstitial edema. Similar findings were seen on 11/28/2016. No change in dual pacer cardiac electrodes from 11/28/2016. She was admitted to telemetry floor and treated for these medical conditions #Acute on chronic diastolic CHF with hx of mitral stenosis: ACS was ruled out. We put the patient on IV Bumex twice a day and upon discharge changed it to PO bumex. Patient had good diuresis and her clinical status improved. However she needed when necessary BiPAP due to desaturation. We Continued TRC nebs as well. IT should be noted that per swallo evaluation patient should be on mechanical soft/ nectar. However, patient refused to follow the recommendations and per POA request we put the patient on regulat thin/thin diet. #Paroxysmal atrial fibrillation: we continued Eliquis 5 mg PO BID, metoprolol 25 mg PO BID and increase diltiazem to 90 mg SR twice a day. She had good rate control and was discharged the same dosage. #Insulin-dependent T2DM: we put the patient on sliding scale insulin and levemir BID. Blood sugars were relatively controlled. She was discharged with home medications to [facility]. Allergies: Coded Allergies: Penicillins (Mild, RASH 01/24/16) TOLERATES CEPHALOSPORINS Pertinent Lab Results: PATIENT: AMINTA HAN PRESENT AGE: 82 PATIENT ACCOUNT NO: [id number] : 34 LOCATION: [facility] ORDERING PHYSICIAN: STEPHANIE SOLORIO MD SERVICE DATE: 01/21/17 EXAM TYPE: CARD - ECHOCARDIOGRAM AMINTA HAN Age: 82 : 1935 Gender: F Exam Date: 01/21/2017 19:18 Exam Location: 171 Ht (in): 64 Wt (lb): 219 BSA: 2.17 BP: 118 / 60 Ordering Physician: STEPHANIE SOLORIO MD Referring Physician: Yakov Galloway MD, PhD Technologist: Keely Ramos [facility] Room Number: 171 Indications: PROSTHETIC VALVE FUNCTION Rhythm: Atrial flutter Technical Quality: Fair FINDINGS Left Ventricle Normal size left ventricle. Mild concentric left ventricular hypertrophy. Abnormal septal motion consistent with postoperative state and with pacemaker activation. No other obvious regional wall motion abnormalities. Normal left ventricular ejection fraction visually estimated at >65%. Right Ventricle Mild right ventricular dilatation. Catheter/pacemaker wire in the right ventricular cavity. Right Atrium Moderate right atrial dilatation. Catheter/pacemaker wire in the right atrial cavity. Elevated right atrial pressure. Left Atrium Moderate left atrial dilatation. Mitral Valve Mild mitral annular calcification. Bioprosthetic mitral valve. Gradient recorded across the prosthetic mitral valve above the expected range. Dikh-wd-kfgkyrhw mitral stenosis. No mitral regurgitation. Aortic Valve Aortic valve not well visualized. Diffuse thickening of the aortic valve cusps with reduced excursion. Mild to moderate aortic stenosis. Mild aortic regurgitation. Tricuspid Valve Structurally normal tricuspid valve. Moderate tricuspid regurgitation. Severe pulmonary hypertension. Right ventricular systolic pressure estimated to be elevated at 80 mmHg. Pulmonic Valve Pulmonic valve not well visualized, grossly normal. No pulmonic regurgitation. Pericardium No pericardial effusion. Great Vessels Normal size aortic root. Dilated inferior vena cava. CONCLUSIONS Normal size left ventricle. Mild concentric left ventricular hypertrophy. Normal left ventricular ejection fraction visually estimated at > 65%. Mild right ventricular dilatation. Moderate atrial dilatation. Pacemaker wire in right heart. Bioprosthetic mitral valve. Segk-ib-eaoaajdw mitral stenosis. No mitral regurgitation. Mild to moderate aortic stenosis. Mild aortic regurgitation. Moderate tricuspid regurgitation. Severe pulmonary hypertension. Dilated inferior vena cava. Carol Tavarez M.D. (Electronically Signed) Final Date: 22 January 2017 18:25 MEASUREMENTS (Male / Female) Normal Values 2D ECHO LV Diastolic Diameter PLAX 4.0 cm 4.2 - 5.9 / 3.9 - 5.3 cm LV Systolic Diameter PLAX 2.1 cm 2.1 - 4.0 cm LV Fractional Shortening PLAX 47.5 % 25 - 46 % LV Ejection Fraction 2D Teich 79.4 % IVS Diastolic Thickness 1.3 cm LVPW Diastolic Thickness 1.3 cm LV Relative Wall Thickness 0.7 RV Internal Dim ED PLAX 3.4 cm 1.9 - 3.8 cm LVOT Diameter 1.9 cm Aortic Root Diameter 2.9 cm LA Systolic Diameter LX 3.9 cm 3.0 - 4.0 / 2.7 - 3.8 cm LA Volume 69.0 cm 18 - 58 / 22 - 52 cm Ascending Aorta Diameter 2.9 cm DOPPLER AV Peak Velocity 273.0 cm/s AV Peak Gradient 29.8 mmHg AV Mean Velocity 189.0 cm/s AV Mean Gradient 17.0 mmHg AV Velocity Time Integral 57.3 cm LVOT Peak Velocity 111.0 cm/s LVOT Peak Gradient 4.9 mmHg LVOT Mean Velocity 79.7 cm/s LVOT Mean Gradient 3.0 mmHg LVOT Velocity Time Integral 26.7 cm LVOT Stroke Volume 75.7 cm AV Area Cont Eq vti 1.3 cm AV Area Cont Eq pk 1.2 cm MV Peak Velocity 251.7 cm/s MV Peak Gradient 25.3 mmHg MV Mean Velocity 136.0 cm/s MV Mean Gradient 9.7 mmHg Mitral E Point Velocity 238.0 cm/s MV PHT Velocity 258.3 cm/s MV Deceleration Walsh 984.3 cm/s MV Pressure Half Time 78.7 ms MV Area PHT 2.8 cm MV Deceleration Time 313.0 ms TR Peak Velocity 434.0 cm/s TR Peak Gradient 75.3 mmHg Right Atrial Pressure 5.0 mmHg Pulmonary Artery Systolic Pressu 80.3 mmHg Right Ventricular Systolic Press 80.3 mmHg PV Peak Velocity 77.7 cm/s PV Peak Gradient 2.4 mmHg PV Mean Velocity 50.3 cm/s PV Mean Gradient 1.0 mmHg PV Velocity Time Integral 12.6 cm LV E' Lateral Velocity 7.9 cm/s Mitral E to LV E' Lateral Ratio 30.2 LV E' Septal Velocity 9.8 cm/s Mitral E to LV E' Septal Ratio 24.4 DICTATED BY: CAROL TAVAREZ MD DATE/TIME DICTATED:01/22/171824 VISCOSE DEPARTMENT WORKER:ENRIQUE DATE/TIME TRANSCRIBED:01/22/171824 CONFIDENTIAL, DO NOT COPY WITHOUT APPROPRIATE AUTHORIZATION. <Electronically signed in Other Vendor System> SIGNED BY: CAROL TAVAREZ MD 01/22/171824 PATIENT: AMINTA HAN PRESENT AGE: 82 PATIENT ACCOUNT NO: [id number] : 34 LOCATION: [facility] ORDERING PHYSICIAN: STEPHANIE SOLORIO MD SERVICE DATE: 01/22/17 EXAM TYPE: RAD - XRY-CHEST XRAY, PA AND LATERAL EXAMINATION: XR CHEST CLINICAL INFORMATION: Admitted for CHF exacerbation. Increasing oxygen requirement. Evaluate for volume overload and interval change. COMPARISON: Several prior chest x-rays, most recent of which is dated 01/20/2017. TECHNIQUE: 2 views of the chest were obtained. FINDINGS: A right atrial and right ventricular pacer leads are in place. The patient is status post median sternotomy and mitral annular repair. The cardiomediastinal silhouette is enlarged. There is persistent pulmonary edema with bilateral small pleural effusions, left greater than right. Findings are similar to the previous exam. Bony structures are unremarkable. IMPRESSION: No significant change in congestive heart failure with cardiomegaly, pulmonary edema and small bilateral pleural effusions again noted. DICTATED BY: CAMELIA WATKINS MD DATE/TIME DICTATED:01/22/171323 VISCOSE DEPARTMENT WORKER:ENRIQUE DATE/TIME TRANSCRIBED:01/22/171323 CONFIDENTIAL, DO NOT COPY WITHOUT APPROPRIATE AUTHORIZATION. <Electronically signed in Other Vendor System> SIGNED BY: CAMELIA WATKINS MD 1335 Disposition Summary Disposition Principal Diagnosis: CHF exacerbation Additional Diagnosis: severe MS Discharge Disposition: SNF Discharge Instructions General Discharge Information Code Status: Full Code Patient's Diet: diabetic Patient's Activity: as tolerated Follow-Up Instructions/Appts: -Please follow-up with your primary care provider within 7 days after discharge. -please follow-up with your diamond sizer in 7 days after discharge -Please follow-up with your calculation reviewer 7 days after discharge -We have made changes to your home medications, please read the instructions carefully. -Please come back to the hospital if your symptoms got worse. Medications at Discharge Discharge Medications: Stop taking the following medications: Diltiazem Cd (Diltiazem ER) 120 MG CAP.ER.DEG ORAL DAILY Days = 30 Theophylline Anhydrous (Theophylline Anhydrous) 300 MG TAB.ER.12H ORAL TWICE DAILY Qty = 30 Bumetanide (Bumetanide) 2 MG TABLET ORAL 4 TIMES A DAY Continue taking these medications: Glimepiride (Amaryl) 2 MG TABLET 1 Tablet ORAL TWICE DAILY Comments: NOT GIVEN IN HOSPITAL Apixaban (Eliquis) 5 MG TABLET 1 Tablet ORAL TWICE DAILY Qty = 60 Comments: Last Taken: 01/23 Time: 1000AM Insulin Glargine,Hum.rec.anlog (Toujeo Solostar) 300 UNIT/1 ML INSULN.PEN 25 Units Inject into fatty tissue DAILY Qty = 5 Comments: NOT GIVEN IN HOSPITAL. PT RECEIVED LEVEMIR 25 UNITS @ 01/23 10am Metoprolol Tartrate (Metoprolol Tartrate) 25 MG TABLET 25 Milligram ORAL TWICE DAILY Days = 30 Comments: Last Taken: 01/23 Time: 1000 AM Albuterol Sulfate (Albuterol Sulfate) 2.5 MG/3 ML VIAL.NEB 3 Milliliters Inhale through mouth TWICE DAILY as needed for breathing Days = 30 Comments: Last Taken: 12/02/16 Time: 9 AM Albuterol Sulfate (Proventil Hfa) 6.7 GM HFA.AER.AD 2 Puff Inhale through mouth EVERY 4 HOURS NEEDED Qty = 1 Instructions: USE THIS IF YOU CANNOT GET THE NEBULIZER MACHINE Comments: NOT GIVEN IN HOSPITAL Ferrous Sulfate (Ferrous Sulfate) 325 MG TABLET 1 Tablet ORAL TWICE DAILY Qty = 60 Comments: NOT GIVEN IN HOSPITAL. Insulin Lispro (Humalog Kwikpen U-100) 100 UNIT/1 ML INSULN.PEN Units Inject into fatty tissue 3 TIMES DAILY BEFORE MEALS Qty = 15 Instructions: BEFORE MEALS Blood Insulin Sugar Units 151-200 1 201-250 2 251-300 3 301-350 4 351-400 5 >400 6 Call Doctor Comments: NOT GIVEN IN HOSPITAL. PT RECEIVED NOVOLOG SLIDING SCALE Losartan Potassium (Losartan Potassium) 50 MG TABLET 1 Tablet ORAL DAILY Qty = 30 Comments: Last Taken: 01/23 Time: 10AM Potassium Chloride (Potassium Chloride) 20 MEQ TAB.ER.PRT 1 Tablet ORAL DAILY Qty = 20 Comments: Last Taken: 01/23 Time: 10AM Start taking the following new medications: Bumetanide (Bumetanide) 1 MG TABLET 4 Milligram ORAL 0800,1700 Days = 29 No Refills Comments: Last Taken: 01/23 Time: 8AM Diltiazem HCl (Diltiazem 12HR ER) 90 MG CAP.ER.12H 1 Tablet ORAL TWICE DAILY Qty = 60 No Refills Comments: Last Taken: 01/23 Time: 10AM Copies To: QUAN HENRY,JAY Terry; VALERI HENRY PhD,YAKOV Terry
[2017-01-21] MEDS ORDERED: BUMETANIDE2 M1 PO (10:23)
--- NOTE | 2017-01-21 14:24 | Patient Discharge Instructions ---
Discharge Instructions General Discharge Information You were seen/treated for: CHF exacerbation Special Instructions: -Please follow-up with your primary care provider within 7 days after discharge. -please follow-up with your supervisor carbon electrodes in 7 days after discharge -Please follow-up with your clinical counselor 7 days after discharge -We have made changes to your home medications, please read the instructions carefully. -Please come back to the hospital if your symptoms got worse. Diet Recommended Diet: Diabetic Acute Coronary Syndrome Inclusion Criteria At DC or during hospital stay patient has or had the following: ACS DIAGNOSIS No Discharge Core Measures Meds if any: Prescribed or Continued at Discharge Meds if any: NOT Prescribed or Continued at Discharge Congestive Heart Failure Inclusion Criteria At DC or during hospital stay patient has or had the following: CHF DIAGNOSIS Yes Discharge Core Measures Meds if any: Prescribed or Continued at Discharge DEEPA/ARB for EF <40% Yes Meds if any: NOT Prescribed or Continued at Discharge Cerebrovascular accident Inclusion Criteria At DC or during hospital stay patient has or had the following: CVA/TIA Diagnosis No Discharge Core Measures Meds if any: Prescribed or Continued at Discharge Meds if any: NOT Prescribed or Continued at Discharge Venous thromboembolism Inclusion Criteria VTE Diagnosis No VTE Type NONE VTE Confirmed by (Test) NONE Discharge Core Measures - Per Current guidelines, there needs to be overlap - treatment for the first 5 days of Warfarin therapy. - If discharged on Warfarin prior to 5 days of - overlap therapy, the patient will need to be - assessed for post discharge needs including - *Post discharge parental anticoagulation - *Warfarin and/or parental anticoagulation education - *Follow up date to check INR post discharge At least 5 days overlap therapy as Inpatient No Meds if any: Prescribed or Continued at Discharge Note: Overlap Therapy is Warfarin and Anticoagulant Meds if any: NOT Prescribed or Continued at Discharge
[2017-01-21 15:30] VITALS: BP 144/78
--- NOTE | 2017-01-21 15:34 | PN- Cardiology ---
Subjective Subjective: * Breathing is improved to baseline. * atrial fibrillation with good rate control * creatinine is stable at 1.3 Objective Vital Signs and I&Os Vital Signs Date Time Temp Pulse Resp B/P Pulse O2 O2 Flow FiO2 Ox Delivery Rate 01/21 1259 Nasal 4.0L Cannula 01/21 1026 98 128/60 01/21 1026 98 128/60 01/21 1026 98 128/60 01/21 0800 98.1 72 20 128/60 95 Nasal 4.0L Cannula 01/21 0000 Nasal 4.0L Cannula 01/20 2300 98.2 98 22 118/60 92 Nasal 4.0L Cannula 01/20 2130 130 118/60 01/20 2130 130 118/60 01/20 1730 62 97 01/20 1600 Nasal 3.0L Cannula 01/20 1558 97.9 85 20 108/70 98 BIPAP 4.0L Intake & Output 01/21 1600 01/21 0800 01/21 0000 01/20 1600 01/20 0800 01/20 0000 Intake Total 200 350 50 620 Output Total 450 1850 1622 379 3680 Balance -250 -1500 -1000 -150 -930 Intake, IV 0 0 20 Intake, Oral 200 350 50 600 Number 0 1 Bowel Movements Output, Urine 450 1850 5445 765 2812 Patient 219 lb Weight Physical Exam: General: WD/ obese female in NAD; alert and oriented x 3 Neck: no JVD, no carotid bruit Heart: irregularly irregular with 3/6 systolic murmur Lungs: no crackles or wheezing EXtremtieis: 1+ leg edema bilaterally superimposed on chronic lymphedema Assessment/Plan Assessment/Plan * This patient has moderate stenosis of her bioprosthetic mitral valve. In that setting she had decompensated CHF and atrial fibrillation. Her right heart failure was minimal and it should be noted that this patient has had very large legs with chronic lymphedema for decades. This patient also has COPD and obesity hypoventilation syndrome. Change Bumex to 4mg PO BID. Follow her BUN, creatinine and potassium. * Atrial fibrillation. This rhythm tends to be poorly tolerated in the setting of mitral stenosis. Repeat an echocardiogram to assess for progression of her mitral valvular disease. Continue Cardizem at 90mg PO BID. Continue Metoprolol 25mg BID and continue Eliquis for stroke prophylaxis. * If patient is breathing comfortably on oral Bumex tomorrow then she will be ready for discharge from a cardiac standpoint. Continue telemetry? Yes
--- NOTE | 2017-01-21 18:09 | Event Note ---
Event Note Event Note: Patient was noted to be coughing with her meals today thus a formal swallow evaluation was performed which showed several abnormalities. Recommendation was made by speech therapy to place patient on mechanical soft/ground and nectar thick liquids diet. Patient refused the diet and said that she will not eat or drink it as it is not appetizing. She expressed her desire to be switched to the regular/thin liquids diet that she was on previously. The risks of not adhering to the dietary recommendations by speech therapy including choking, aspiration and pneumonia were explained in detail to the patient, however she was still adamant in her request to have regular/thin liquids diet. Patient's son Josias Han, who is the POA, was contacted who had a conversation with the patient regarding this issue. After talking to his mom, he reported that his mom fully understands the risk of not adhering to the recommended diet. He further expressed his desire to have his mom switched back to the regular/thin liquids diet despite the risks. Patient will be started on regular/thin liquids diet for dinner. She has expressed understanding of the risks associated with her decision and takes full responsibility for the consequences.
--- NOTE | 2017-01-21 18:43 | NUR ---
PT HAD 4 BEAT RUN OF VTACH AT APPROXIMATELY 1730. PT ASYMPTOMATIC, ALL VITALS WL. NO C/O PAIN, NO S/S DISTRESS. DR BROWN MADE AWARE. MAG AND PHOS LABS ADDED ON TO AM LAB WORK.
[2017-01-22 00:04] VITALS: BP 130/80
--- NOTE | 2017-01-22 07:00 | NUR ---
LATE ENTRY PT HAD AN 8 BEAT RUN OF V-TACH AT 1 AM. MD ERAZO AWARE. NNO. PT ASYMPTOMATIC.
--- NOTE | 2017-01-22 07:21 | PN- Housestaff ---
Subjective Follow-up For: Acute decompensated CHF Atrial fibrillation Dysphagia Tele-Events Since Last Visit: Atrial fibrillation HR 68-86 PVCs 3-beat and 8-beat V-tach Subjective: No acute events overnight. Patient seen and examined this morning. Formal swallow evaluation was performed yesterday as patient was noted to cough with her food. It revealed potential risk of aspiration and patient was put on mechanical soft/ground and nectar thick liquids diet. Patient refused the recommended diet and requested to be switched back to regular/thin liquids. Her son (KAL) wanted the medical team to comply with her wishes despite the risks, therefore she was placed back on regular diet. She feels well and has no complaints. She denies dysuria. Her oxygen requirement has increased to 6 L. Review of Systems Constitutional: Reports: see HPI. Objective Last 24 Hrs of Vital Signs/I&O Vital Signs Date Time Temp Pulse Resp B/P B/P Pulse O2 O2 Flow FiO2 Mean Ox Delivery Rate 01/22 0957 130/86 01/22 0957 130/86 01/22 0957 130/86 01/22 0934 97 Nasal 6.0L Cannula 01/22 0806 98.0 83 20 130/86 98 Nasal 6.0L Cannula 01/22 0800 Nasal 6.0L Cannula 01/22 0110 78 91 01/22 0004 98.2 79 18 130/80 90 Nasal 6.0L Cannula 01/22 0000 90 Nasal 6.0L Cannula 01/21 2300 91 Nasal 5.0L Cannula 01/21 2108 88 144/82 01/21 2108 88 144/82 01/21 1920 90 Nasal 5.0L Cannula 01/21 1600 Nasal 5.0L Cannula Intake & Output 01/22 1600 01/22 0800 01/22 0000 Intake Total 720 120 610 Output Total 2217 177 5132 Balance -380 -380 -390 Intake, IV 10 Intake, Oral 720 120 600 Number 1 Bowel Movements Output, Urine 6037 [id number] Patient 98.883 kg Weight Weight Chair scale Measurement Method Physical Exam General Appearance: Alert, Oriented X3, No Acute Distress HEENT: Atraumatic, Mucous Membr. moist/pink Neck: Supple Cardiovascular: Regular Rate, Normal S1, Normal S2 Lungs: Clear to Auscultation, Diminished Breath Sounds Abdomen: Soft, No Tenderness, Positive Bowel Sounds Extremities: Chronic Lymphedema with Superimposed 1+ Bilateral Pitting Edema Current Medications: Current Medications Sig/Andrei Start time Last Medication Dose Route Stop Time Status Admin Acetaminophen 650 MG Q6 01/18 1800 AC 01/19 PO 0550 Albuterol Sulfate 3 ML BID 01/19 1000 AC 01/22 INH 1828 Albuterol Sulfate 3 ML BID PRN 01/18 2300 AC INH Apixaban 5 MG BID 01/18 2200 AC 01/22 PO 205 Bumetanide 4 MG 0800,1700 01/21 1700 AC 01/22 PO 171 Diltiazem HCl 90 MG BID 01/20 2200 AC 01/22 PO 205 Insulin Aspart 0 TIDAC 01/18 1700 AC 01/22 SC 1711 Insulin Detemir 25 UNITS DAILY 01/19 1000 AC 01/22 SC 0957 Losartan Potassium 50 MG DAILY 01/19 1000 AC 01/22 PO 0957 Metoprolol Tartrate 25 MG BID 01/18 2200 AC 01/22 PO 205 Nystatin 1 JORDAN TID PRN 01/18 2300 AC 01/19 TOP 1349 Oxycodone HCl 5 MG Q8P PRN 01/18 1515 AC PO Oxycodone/ 1 TAB Q8P PRN 01/18 1515 AC Acetaminophen PO Potassium Chloride 20 MEQ DAILY 01/18 1456 AC 01/22 PO 0957 Last 24 Hrs of Lab/Arturo Results Last 24 Hrs of Labs/Mics: Laboratory Tests 01/22/17 0625: Anion Gap 7, Estimated GFR 43 L, BUN/Creatinine Ratio 23.3 Orders ECHO Findings: Normal size left ventricle. Mild concentric left ventricular hypertrophy. Normal left ventricular ejection fraction visually estimated at > 65%. Mild right ventricular dilatation. Moderate atrial dilatation. Pacemaker wire in right heart. Bioprosthetic mitral valve. [id number] mitral stenosis. No mitral regurgitation. Mild to moderate aortic stenosis. Mild aortic regurgitation. Moderate tricuspid regurgitation. Severe pulmonary hypertension. Dilated inferior vena cava. Radiology Findings: No significant change in congestive heart failure with cardiomegaly, pulmonary edema and small bilateral pleural effusions again noted. Assessment/Plan Assessment: 82 y/o F with PMHx of mitral stenosis s/p mitral valve replacement, paroxysmal atrial fibrillation on Eliquis and diastolic CHF who is admitted for acute decompensated CHF. #Acute on chronic HFpEF: Likely secondary to moderate stenosis of her bioprosthetic mitral valve. ECHO this admission with normal LVEF estimated at 65 %, mild concentric left ventricular hypertrophy and severe pulmonary HTN. Oxygen requirement further increased to 6 L from 4 L today. Repeat CXR today with no interval changes. * Cardiology and pulmonology following. Appreciate their recs. * Continue telemetry. * Transitioned to 4 mg PO BID from 4 mg IV BID yesterday. * Continue prior to admission Losartan 50 mg PO daily. * Continue TRC and nebs. * Continue to monitor I/Os, daily weights and BMP. * CPAP with respiratory rate set at 8. * Theophylline discontinued. * Wean down oxygen as tolerated. * Continue ambulation with PT. #Dysphagia: Episode of choking with food yesterday. Mechanical soft/ground and nectar thick liquid diet recommended based on swallow eval however patient refused. POA would like to comply with patient's wishes to resume regular/thin liquids diet with understanding of risks. * Resume regular/thin liquids diet per patient and POA's wishes. Patient and POA understand risks including aspiration, choking and pneumonia and assume responsibility. #Atrial fibrillation: Heart rate well-controlled * Continue Eliquis 5 mg PO BID. * Continue prior to admission metoprolol 25 mg PO BID. * Continue diltiazem 90 mg PO BID. #Insulin-dependent T2DM: Blood sugars well-controlled. Taking glimepiride 2 mg PO BID, Glargine 25 units SQ daily and Lispro sliding scale TIDAC as outpatient. * Hold oral hypoglycemic agents while inpatient. * Continue long-acting insulin Levemir 25 units SQ daily. * Accu-checks and low dose sliding scale Novolog TIDAC. #Asymptomatic bacteriuria: Urine culture growing >100,000 colonies/ml of Enterococcus. Likely represents asymptomatic bacteriuria in the absence of fever , leukocytosis or dysuria. * NTD. Diet: Consistent Carbohydrate 2 with 2 g Na Restriction DVT PPx: Eliquis and ALPs CODE: FULL Problem List: 1. Acute decompensated heart failure 2. Moderate mitral stenosis 3. Atrial fibrillation 4. (HFpEF) heart failure with preserved ejection fraction 5. Insulin dependent type 2 diabetes mellitus 6. Moderate to severe pulmonary hypertension 7. Asymptomatic bacteriuria 8. Dysphagia Pain Ratin Pain Location: N/A Pain Goal: Remain pain free Pain Plan: Tylenol 650 mg PO Q6H Roxicodone 5 mg PO Q8H PRN for moderate pain (scale 4-6) Percocet 1 tab PO Q8H PRN for severe pain (scale 7-10) Tomorrow's Labs & Rationales: BMP to monitor lytes and kidney function in the setting of diuresis and CKD Discharge Plan Discharge Disposition: STR/NH Anticipated Discharge (Day): tomorrow
[2017-01-22 08:06] VITALS: BP 130/86
--- NOTE | 2017-01-22 09:06 | PN- Cardiology ---
Subjective Subjective: * Patient is breathing well on supplemental oxygen. * atrial fibrillation with controlled heart rate. * creatinine is 1.2 * a swallow study showed potential risk of aspiration Objective Vital Signs and I&Os Vital Signs Date Time Temp Pulse Resp B/P B/P Pulse O2 O2 Flow FiO2 Mean Ox Delivery Rate 01/22 0806 98.0 83 20 130/86 98 Nasal 6.0L Cannula 01/22 0110 78 91 01/22 0004 98.2 79 18 130/80 90 Nasal 6.0L Cannula 01/22 0000 90 Nasal 6.0L Cannula 01/21 2300 91 Nasal 5.0L Cannula 01/21 2108 88 144/82 01/21 2108 88 144/82 01/21 1920 90 Nasal 5.0L Cannula 01/21 1600 Nasal 5.0L Cannula 01/21 1530 98.1 77 18 144/78 91 Nasal 5.0L Cannula 01/21 1259 Nasal 4.0L Cannula 01/21 1026 98 128/60 01/21 1026 98 128/60 01/21 1026 98 128/60 Intake & Output 01/22 1600 01/22 0800 01/22 0000 01/21 1600 01/21 0800 01/21 0000 Intake Total 120 610 200 350 Output Total 500 1000 690 467 9222 Balance -380 -390 -800 -250 -1500 Intake, IV 10 0 0 Intake, Oral 120 600 200 350 Number 1 0 1 Bowel Movements Output, Urine 500 1000 633 224 6213 Patient 218 lb 219 lb Weight Weight Chair scale Measurement Method Physical Exam: General: WD/ obese female in NAD; alert and oriented x 3 Neck: no JVD, no carotid bruit Heart: irregularly irregular with 3/6 systolic murmur Lungs: no crackles or wheezing EXtremtieis: 1+ leg edema bilaterally superimposed on chronic lymphedema Assessment/Plan Assessment/Plan * This patient has moderate stenosis of her bioprosthetic mitral valve. In that setting she had decompensated CHF and atrial fibrillation. Her right heart failure was minimal and it should be noted that this patient has had very large legs with chronic lymphedema for decades. This patient also has COPD and obesity hypoventilation syndrome. She is doing well on Bumex 4mg PO BID which should be continued. Her BUN, creatinine and potassium level can be followed as an outpatient. * Atrial fibrillation. This rhythm tends to be poorly tolerated in the setting of mitral stenosis. Repeat an echocardiogram to assess for progression of her mitral valvular disease. Continue Cardizem at 90mg PO BID. Continue Metoprolol 25mg BID and continue Eliquis for stroke prophylaxis. * If patient is breathing comfortably. If she does not desaturate of supplemental oxygen then she can be discharged to home from a cardiac standpoint. Continue telemetry? Yes
--- NOTE | 2017-01-22 09:45 | PN- Att Addend ---
Attending Addendum Attending Brief Note Patient requires 6 L of oxygen today General Appearance: Alert, No Acute Distress Skin: Grossly normal HEENT: PEERLA Neck: Supple, No JVD Cardiovascular: Irregular rhythm Lungs: Clear to Auscultation, Normal Air Movement Abdomen: Normal Bowel Sounds, Soft, No Tenderness Neurological: Normal Speech, Strength at 5/5 X4 Ext, Cranial Nerves 3-12 NL, Reflexes 2+ Extremities: 2+ pedal edema Vascular: Normal Pulses Assessment She is requiring 6 L of oxygen and currently on oral Bumex. We'll repeat a chest x-ray and determine the need for further IV diuretics. Enterococcus in the urine likely colonization Plan Repeat chest x-ray Follow off antibiotics Taper oxygen for saturation above 92% Ambulate patient PT evaluation Continue other cardiac meds and insulin Current Medications Sig/Andrei Start time Last Medication Dose Route Stop Time Status Admin Acetaminophen 650 MG Q6 01/18 1800 AC 01/19 PO 0550 Albuterol Sulfate 3 ML BID 01/19 1000 AC 01/22 INH 0932 Albuterol Sulfate 3 ML BID PRN 01/18 2300 AC INH Apixaban 5 MG BID 01/18 2200 AC 01/21 PO 2108 Bumetanide 4 MG 0800,1700 01/21 1700 AC 01/22 PO 0807 Bumetanide 4 MG 0800 & 1700 01/18 1700 DC 01/21 IV 1026 Diltiazem HCl 90 MG BID 01/20 2200 AC 01/21 PO 2108 Insulin Aspart 0 TIDAC 01/18 1700 AC 01/22 SC 0807 Insulin Detemir 25 UNITS DAILY 01/19 1000 AC 01/21 SC 1038 Losartan Potassium 50 MG DAILY 01/19 1000 AC 01/21 PO 1026 Metoprolol Tartrate 25 MG BID 01/18 2200 AC 01/21 PO 2108 Nystatin 1 JORDAN TID PRN 01/18 2300 AC 01/19 TOP 1349 Oxycodone HCl 5 MG Q8P PRN 01/18 1515 AC PO Oxycodone/ 1 TAB Q8P PRN 01/18 1515 AC Acetaminophen PO Patient Medication 1 ED .STK-MED ONE 01/21 1427 DC Teaching ED 01/21 1428 Potassium Chloride 20 MEQ DAILY 01/18 1456 AC 01/21 PO 1026 Laboratory Tests 01/22 0625 Chemistry Sodium (137 - 145 mmol/L) 144 Potassium (3.5 - 5.1 mmol/L) 4.1 Chloride (98 - 107 mmol/L) 97 L Carbon Dioxide (22 - 30 mmol/L) 40 H Anion Gap (5 - 16) 7 BUN (7 - 17 mg/dL) 28 H Creatinine (0.5 - 1.0 mg/dL) 1.2 H Estimated GFR (>60 ml/min) 43 L BUN/Creatinine Ratio (7 - 25 %) 23.3 Vital Signs Date Time Temp Pulse Resp B/P B/P Pulse O2 O2 Flow FiO2 Mean Ox Delivery Rate 01/22 0934 97 Nasal 6.0L Cannula 01/22 0806 98.0 83 20 130/86 98 Nasal 6.0L Cannula 01/22 0110 78 91 01/22 0004 98.2 79 18 130/80 90 Nasal 6.0L Cannula 01/22 0000 90 Nasal 6.0L Cannula 01/21 2300 91 Nasal 5.0L Cannula 01/21 2108 88 144/82 01/21 2108 88 144/82 01/21 1920 90 Nasal 5.0L Cannula 01/21 1600 Nasal 5.0L Cannula 01/21 1530 98.1 77 18 144/78 91 Nasal 5.0L Cannula 01/21 1259 Nasal 4.0L Cannula 01/21 1026 98 128/60 01/21 1026 98 128/60 01/21 1026 98 128/60
--- NOTE | 2017-01-22 13:35 | RADIOLOGY REPORT ---
EXAMINATION: XR CHEST CLINICAL INFORMATION: Admitted for CHF exacerbation. Increasing oxygen requirement. Evaluate for volume overload and interval change. COMPARISON: Several prior chest x-rays, most recent of which is dated 01/20/2017. TECHNIQUE: 2 views of the chest were obtained. FINDINGS: A right atrial and right ventricular pacer leads are in place. The patient is status post median sternotomy and mitral annular repair. The cardiomediastinal silhouette is enlarged. There is persistent pulmonary edema with bilateral small pleural effusions, left greater than right. Findings are similar to the previous exam. Bony structures are unremarkable. IMPRESSION: No significant change in congestive heart failure with cardiomegaly, pulmonary edema and small bilateral pleural effusions again noted.
[2017-01-22 15:30] VITALS: BP 122/80
--- NOTE | 2017-01-22 18:25 | ECHOCARDIOGRAM REPORT ---
AMINTA MAK Age: 82 : 1935 Gender: F Exam Date: 01/21/2017 19:18 Exam Location: 171 Ht (in): 64 Wt (lb): 219 BSA: 2.17 BP: 118 / 60 Ordering Physician: STEPHANIE SOLORIO MD Referring Physician: Yakov Galloway MD, PhD Technologist: Keely Ramos [facility] Room Number: 171 Indications: PROSTHETIC VALVE FUNCTION Rhythm: Atrial flutter Technical Quality: Fair FINDINGS Left Ventricle Normal size left ventricle. Mild concentric left ventricular hypertrophy. Abnormal septal motion consistent with postoperative state and with pacemaker activation. No other obvious regional wall motion abnormalities. Normal left ventricular ejection fraction visually estimated at >65%. Right Ventricle Mild right ventricular dilatation. Catheter/pacemaker wire in the right ventricular cavity. Right Atrium Moderate right atrial dilatation. Catheter/pacemaker wire in the right atrial cavity. Elevated right atrial pressure. Left Atrium Moderate left atrial dilatation. Mitral Valve Mild mitral annular calcification. Bioprosthetic mitral valve. Gradient recorded across the prosthetic mitral valve above the expected range. [place]-tj-ycoplfbc mitral stenosis. No mitral regurgitation. Aortic Valve Aortic valve not well visualized. Diffuse thickening of the aortic valve cusps with reduced excursion. Mild to moderate aortic stenosis. Mild aortic regurgitation. Tricuspid Valve Structurally normal tricuspid valve. Moderate tricuspid regurgitation. Severe pulmonary hypertension. Right ventricular systolic pressure estimated to be elevated at 80 mmHg. Pulmonic Valve Pulmonic valve not well visualized, grossly normal. No pulmonic regurgitation. Pericardium No pericardial effusion. Great Vessels Normal size aortic root. Dilated inferior vena cava. CONCLUSIONS Normal size left ventricle. Mild concentric left ventricular hypertrophy. Normal left ventricular ejection fraction visually estimated at > 65%. Mild right ventricular dilatation. Moderate atrial dilatation. Pacemaker wire in right heart. Bioprosthetic mitral valve. Tept-pe-qxttpmqa mitral stenosis. No mitral regurgitation. Mild to moderate aortic stenosis. Mild aortic regurgitation. Moderate tricuspid regurgitation. Severe pulmonary hypertension. Dilated inferior vena cava. Chilo Esqueda M.D. (Electronically Signed) Final Date: 22 January 2017 18:25 MEASUREMENTS (Male / Female) Normal Values 2D ECHO LV Diastolic Diameter PLAX 4.0 cm 4.2 - 5.9 / 3.9 - 5.3 cm LV Systolic Diameter PLAX 2.1 cm 2.1 - 4.0 cm LV Fractional Shortening PLAX 47.5 % 25 - 46 % LV Ejection Fraction 2D Teich 79.4 % IVS Diastolic Thickness 1.3 cm LVPW Diastolic Thickness 1.3 cm LV Relative Wall Thickness 0.7 RV Internal Dim ED PLAX 3.4 cm 1.9 - 3.8 cm LVOT Diameter 1.9 cm Aortic Root Diameter 2.9 cm LA Systolic Diameter LX 3.9 cm 3.0 - 4.0 / 2.7 - 3.8 cm LA Volume 69.0 cm 18 - 58 / 22 - 52 cm Ascending Aorta Diameter 2.9 cm DOPPLER AV Peak Velocity 273.0 cm/s AV Peak Gradient 29.8 mmHg AV Mean Velocity 189.0 cm/s AV Mean Gradient 17.0 mmHg AV Velocity Time Integral 57.3 cm LVOT Peak Velocity 111.0 cm/s LVOT Peak Gradient 4.9 mmHg LVOT Mean Velocity 79.7 cm/s LVOT Mean Gradient 3.0 mmHg LVOT Velocity Time Integral 26.7 cm LVOT Stroke Volume 75.7 cm AV Area Cont Eq vti 1.3 cm AV Area Cont Eq pk 1.2 cm MV Peak Velocity 251.7 cm/s MV Peak Gradient 25.3 mmHg MV Mean Velocity 136.0 cm/s MV Mean Gradient 9.7 mmHg Mitral E Point Velocity 238.0 cm/s MV PHT Velocity 258.3 cm/s MV Deceleration [place] 984.3 cm/s MV Pressure Half Time 78.7 ms MV Area PHT 2.8 cm MV Deceleration Time 313.0 ms TR Peak Velocity 434.0 cm/s TR Peak Gradient 75.3 mmHg Right Atrial Pressure 5.0 mmHg Pulmonary Artery Systolic Pressu 80.3 mmHg Right Ventricular Systolic Press 80.3 mmHg PV Peak Velocity 77.7 cm/s PV Peak Gradient 2.4 mmHg PV Mean Velocity 50.3 cm/s PV Mean Gradient 1.0 mmHg PV Velocity Time Integral 12.6 cm LV E' Lateral Velocity 7.9 cm/s Mitral E to LV E' Lateral Ratio 30.2 LV E' Septal Velocity 9.8 cm/s Mitral E to LV E' Septal Ratio 24.4
[2017-01-22 22:10] VITALS: BP 128/80
--- NOTE | 2017-01-23 07:04 | PN- Housestaff ---
Subjective Follow-up For: Acute decompensated CHF Tele-Events Since Last Visit: Atrial flutter HR 69-80 3-beat V-tach Subjective: No acute events overnight. Patient seen and examined this morning. She feels much better today with improved shortness of breath. Oxygenation requirement has improved to 5 L NC. Review of Systems Constitutional: Reports: see HPI. Objective Last 24 Hrs of Vital Signs/I&O Vital Signs Date Time Temp Pulse Resp B/P B/P Pulse O2 O2 Flow FiO2 Mean Ox Delivery Rate 01/23 0142 73 90 01/23 0000 92 Nasal 4.0L Cannula 01/22 2210 98.7 90 20 128/80 92 Nasal 4.0L Cannula 01/22 205 90 128/80 01/22 2056 90 128/80 01/22 1828 90 Nasal 4.0L Cannula 01/22 1800 978 Nasal 4.0L Cannula 01/22 1530 98.1 70 18 122/80 93 Nasal 4.0L Cannula 01/22 0957 130/86 01/22 0957 130/86 01/22 0957 130/86 01/22 0934 97 Nasal 6.0L Cannula Intake & Output 01/23 1600 01/23 0800 01/23 0000 Intake Total 120 240 Output Total 750 550 Balance -630 -310 Intake, Oral 120 240 Number 0 0 Bowel Movements Output, Urine 750 550 Patient 98.883 kg Weight Weight Chair scale Measurement Method Physical Exam General Appearance: Alert, Oriented X3, No Acute Distress HEENT: Atraumatic, Mucous Membr. moist/pink Neck: Supple Cardiovascular: Irregular, Grade 3/6 Systolic Murmur Lungs: Clear to Auscultation, Diminished Breath Sounds Abdomen: Soft, No Tenderness, Positive Bowel Sounds Extremities: No Clubbing, No Cyanosis, Chronic Lymphedema Current Medications: Current Medications Sig/Andrei Start time Last Medication Dose Route Stop Time Status Admin Acetaminophen 650 MG Q6 PRN 01/23 0810 UNVr PO Acetaminophen 650 MG Q6 01/18 1800 DC 01/19 PO 0550 Albuterol Sulfate 3 ML BID 01/19 1000 AC 01/22 INH 1828 Albuterol Sulfate 3 ML BID PRN 01/18 2300 AC INH Apixaban 5 MG BID 01/18 2200 AC 01/22 PO 2055 Bumetanide 4 MG 0800,1700 01/21 1700 AC 01/23 PO 0756 Diltiazem HCl 90 MG BID 01/20 2200 AC 01/22 PO 205 Insulin Aspart 0 TIDAC 01/18 1700 AC 01/23 SC 0756 Insulin Detemir 25 UNITS DAILY 01/19 1000 AC 01/22 SC 0957 Losartan Potassium 50 MG DAILY 01/19 1000 AC 01/22 PO 0957 Metoprolol Tartrate 25 MG BID 01/18 2200 AC 01/22 PO 205 Nystatin 1 JORDAN TID PRN 01/18 2300 AC 01/19 TOP 1349 Oxycodone HCl 5 MG Q8P PRN 01/18 1515 AC PO Oxycodone/ 1 TAB Q8P PRN 01/18 1515 AC Acetaminophen PO Potassium Chloride 20 MEQ DAILY 01/18 1456 AC 01/22 PO 0957 Last 24 Hrs of Lab/Arturo Results Last 24 Hrs of Labs/Mics: Laboratory Tests 01/23 01/23 1336 0610 Chemistry Sodium (137 - 145 mmol/L) 143 Potassium (3.5 - 5.1 mmol/L) 4.2 Chloride (98 - 107 mmol/L) 96 L Carbon Dioxide (22 - 30 mmol/L) 40 H Anion Gap (5 - 16) 8 BUN (7 - 17 mg/dL) 28 H Creatinine (0.5 - 1.0 mg/dL) 1.2 H Estimated GFR (>60 ml/min) 43 L BUN/Creatinine Ratio (7 - 25 %) 23.3 Urines Urine Osmolality Cancelled Assessment/Plan Assessment: 82 y/o F with PMHx of mitral stenosis s/p mitral valve replacement, paroxysmal atrial fibrillation on Eliquis and diastolic CHF who is admitted for acute decompensated CHF. #Acute on chronic HFpEF: Likely secondary to moderate stenosis of her bioprosthetic mitral valve. ECHO this admission with normal LVEF estimated at 65 %, mild concentric left ventricular hypertrophy and severe pulmonary HTN. Oxygen requirement has improved to 5 L today, but still increased from her baseline of 2.5 L at rest and 3 L with ambulation. 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 * Continue Bumex 4 mg PO BID on discharge. * Continue prior to admission Losartan 50 mg PO daily. * Theophylline stopped on discharge. #Atrial fibrillation: Heart rate well-controlled. * Continue prior to admission Eliquis 5 mg PO BID and metoprolol 25 mg PO BID. * Continue diltiazem 90 mg PO BID on discharge. #Insulin-dependent T2DM: Blood sugars well-controlled. * Continue prior to admission glimepiride 2 mg PO BID, Glargine 25 units SQ daily and Lispro sliding scale TIDAC on discharge. Diet: Consistent Carbohydrate 2 with 2 g Na Restriction DVT PPx: Eliquis and ALPs CODE: FULL Problem List: 1. Moderate to severe pulmonary hypertension 2. Acute decompensated heart failure 3. Moderate mitral stenosis 4. Paroxysmal atrial fibrillation 5. Insulin dependent type 2 diabetes mellitus 6. Dysphagia 7. Asymptomatic bacteriuria 8. CKD (chronic kidney disease) stage 3, GFR 30-59 ml/min Pain Ratin Pain Location: N/A Pain Goal: Remain pain free Pain Plan: Tylenol 650 mg PO Q6H PRN for mild pain (scale 1-3) Roxicodone 5 mg PO Q8H PRN for moderate pain (scale 4-6) Percocet 1 tab PO Q8H PRN for severe pain (scale 7-10) Tomorrow's Labs & Rationales: None Discharge Plan Discharge Disposition: STR/NH Stable for Discharge? Yes Anticipated Discharge (Day): today
[2017-01-23 07:50] VITALS: BP 140/70
[2017-01-23] MEDS ORDERED: BUMETANIDE1 M1 PO (08:33)
--- NOTE | 2017-01-23 10:04 | PN- Att Addend ---
Attending Addendum Attending Brief Note Patient requires 5 L of oxygen today General Appearance: Alert, No Acute Distress Skin: Grossly normal HEENT: PEERLA Neck: Supple, No JVD Cardiovascular: Irregular rhythm Lungs: Clear to Auscultation, Normal Air Movement Abdomen: Normal Bowel Sounds, Soft, No Tenderness Neurological: Normal Speech, Strength at 5/5 X4 Ext, Cranial Nerves 3-12 NL, Reflexes 2+ Extremities: 2+ pedal edema Vascular: Normal Pulses Assessment Oxygen requirements have improved. Although she is requiring about 5 L and her baseline is about 3 L at home. X-ray suggest small effusions and congestion and currently she is on oral Bumex as per cardiology. Patient and family insisted on having regular diet and they are aware of the risk of possible aspiration. Enterococcus in the urine likely colonization Plan Diuretics per cardiology Taper oxygen for saturation above 92% Ambulate patient PT evaluation Continue other cardiac meds and insulin Current Medications Sig/Andrei Start time Last Medication Dose Route Stop Time Status Admin Acetaminophen 650 MG Q6P PRN 01/23 0810 AC PO Acetaminophen 650 MG Q6 01/18 1800 DC 01/19 PO 0550 Albuterol Sulfate 3 ML BID 01/19 1000 AC 01/23 INH 0925 Albuterol Sulfate 3 ML BID PRN 01/18 2300 AC INH Apixaban 5 MG BID 01/18 2200 AC 01/22 PO 205 Bumetanide 4 MG 0800,1700 01/21 1700 AC 01/23 PO 0756 Diltiazem HCl 90 MG BID 01/20 2200 AC 01/22 PO 205 Insulin Aspart 0 TIDAC 01/18 1700 AC 01/23 SC 0756 Insulin Detemir 25 UNITS DAILY 01/19 1000 AC 01/22 SC 0957 Losartan Potassium 50 MG DAILY 01/19 1000 AC 01/22 PO 0957 Metoprolol Tartrate 25 MG BID 01/18 2200 AC 01/22 PO 2056 Nystatin 1 JORDAN TID PRN 01/18 2300 AC 01/19 TOP 1349 Oxycodone HCl 5 MG Q8P PRN 01/18 1515 AC PO Oxycodone/ 1 TAB Q8P PRN 01/18 1515 AC Acetaminophen PO Potassium Chloride 20 MEQ DAILY 01/18 1456 AC 01/22 PO 0957 Laboratory Tests 01/23 0610 Chemistry Sodium (137 - 145 mmol/L) 143 Potassium (3.5 - 5.1 mmol/L) 4.2 Chloride (98 - 107 mmol/L) 96 L Carbon Dioxide (22 - 30 mmol/L) 40 H Anion Gap (5 - 16) 8 BUN (7 - 17 mg/dL) 28 H Creatinine (0.5 - 1.0 mg/dL) 1.2 H Estimated GFR (>60 ml/min) 43 L BUN/Creatinine Ratio (7 - 25 %) 23.3 Vital Signs Date Time Temp Pulse Resp B/P B/P Pulse O2 O2 Flow FiO2 Mean Ox Delivery Rate 01/23 0927 92 Nasal 5.0L Cannula 01/23 0800 Nasal 6.0L Cannula 01/23 0750 98.7 81 20 140/70 96 Nasal 6.0L Cannula 01/23 0142 73 90 01/23 0000 92 Nasal 4.0L Cannula 01/22 2210 98.7 90 20 128/80 92 Nasal 4.0L Cannula 01/22 2056 90 128/80 01/22 2056 90 128/80 01/22 1828 90 Nasal 4.0L Cannula 01/22 1800 978 Nasal 4.0L Cannula 01/22 1530 98.1 70 18 122/80 93 Nasal 4.0L Cannula
[2017-01-23] MEDS ORDERED: DILTIAZEM 12HR90 MG PO (10:58)
[2017-01-23 14:53] VITALS: BP 140/70
== END 2017-01-23 17:35 | DRG 291 ==
LOC: ENRESERVDT → ENRESERVTM → ERH 10:03 → 1NO 13:19 → ERHI 13:19 → 1NO 15:00 → ENPENDDIS 01-23 14:22 → 1NO 01-23 17:35
PROVIDERS: Emergency Medicine; ADMIT Internal Medicine
DX: I13.0 Hypertensive heart and chronic kidney disease with heart failure and stage 1 through stage 4 chronic kidney disease, or unspecified chronic kidney disease (principal); I50.33 Acute on chronic diastolic (congestive) heart failure; J96.21 Acute and chronic respiratory failure with hypoxia; E11.22 Type 2 diabetes mellitus with diabetic chronic kidney disease; I27.2 Other secondary pulmonary hypertension; E66.2 Morbid (severe) obesity with alveolar hypoventilation; R13.10 Dysphagia, unspecified; J96.22 Acute and chronic respiratory failure with hypercapnia; I48.0 Paroxysmal atrial fibrillation; Z79.01 Long term (current) use of anticoagulants; I25.10 Atherosclerotic heart disease of native coronary artery without angina pectoris; E78.5 Hyperlipidemia, unspecified; I25.2 Old myocardial infarction; Z68.37 Body mass index [BMI] 37.0-37.9, adult; Z87.891 Personal history of nicotine dependence; N18.3 Chronic kidney disease, stage 3 (moderate); Z79.4 Long term (current) use of insulin; J44.9 Chronic obstructive pulmonary disease, unspecified; Z95.0 Presence of cardiac pacemaker; R91.8 Other nonspecific abnormal finding of lung field; Z95.3 Presence of xenogenic heart valve; Z99.81 Dependence on supplemental oxygen
CPT/HCPCS: 1NP; 84133; 84300; 36415; 81001; 82436; 82570; 87086; 87147; 93005; 93010; 93306; 94799; 96374; 96375; 97110-GO; 97116-GO; 97161-GP; 97165-GO; 97530-GO; 99291; J1940